=== PATIENT | male | born 1975 | race Caucasian/White ===

== ENCOUNTER → 2017-05-26 | Outpatient (REF) ==
[~2017-05-26] MED LIST: ACE500 PO; AMLO-476 PO; IBU800 PO
== END ==
LOC: AUD 10:25
PROVIDERS: ATTEND Nurse Practitioner Family
DX: Z01.10 Encounter for examination of ears and hearing without abnormal findings (principal)
CPT/HCPCS: 92552

== ENCOUNTER 2017-10-26 12:27 | Inpatient (IN) | payer BC ==
[~2017-10-26] VITALS: Ht 177.8 cm; Wt 110.7 kg
[~2017-10-26 12:27] MED LIST changes: -DEXAMETHASONE SOD PHOS 10MG/ML ONE; -HYDROmorphone HCL 2 MG/ML SDV ONE; -IOPAMIDOL 76% 75 ML INFUS BTL 75 ML ONE; -LIDOCAINE MPF 1% 5 ML VIAL ONE; -LIDOCAINE/SOD BICARB 8.4% SYR ONE; -METO50TA19 PO; -MIDAZOLAM 2 MG/2 ML VIAL ONE; -ONDANSETRON 4 MG/2 ML VIAL ONE; -PIOG45TA65 PO; -PROPOFOL EMUL(*) 10MG/ML 20 ML 20 ML ONE; -ROCURONIUM BROM 10 MG/ML 10 ML ONE; -fentaNYL CITR 100 MCG/2 ML AMP ONE
--- NOTE | 2017-10-26 12:37 | ER Report ---
History and Physical Time Seen By MD: 12:36 HPI/ROS This is a 41-year-old male who was sent to the emergency department by the providers at the urgent care for abnormal CT scan results. The patient states that he has had worsening left lower quadrant abdominal pain and fullness for the past 2 months. His , who is at the bedside, states that for 2 months every 5 days he has multiple episodes of vomiting and diarrhea. The episode spontaneously resolve, and then the same episodes return 5 days later. The patient went to the urgent care today because his pain is worsening and he has not had a bowel movement in 5 days. He is also complaining of nausea and vomiting and abdominal fullness and distention. He does not have a family history of colon cancer, does not smoke cigarettes, and states he has never had blood in his stool. He denies weight loss. Remainder of the 14 system rev: Yes Allergies: Coded Allergies: No Known Allergies (Verified Allergy, Mild, 10/15/07) Home Meds Reported Medications Metoprolol Succinate (METOPROLOL SUCCINATE) 50 Mg Tab.er.24h, 2 TAB PO QDAY, TAB 10/26/17 Pioglitazone Hcl (PIOGLITAZONE HCL) 45 Mg Tablet, 45 MG PO QDAY 10/26/17 Amlodipine Besylate/Benazepril (Lotrel 10/20 Capsule) 1 Cap Capsule, 1 CAP PO QDAY 10/15/07 Discontinued Reported Medications Acetaminophen (Tylenol) 500 Mg Tab, 500 MG PO Q4-6H 1 GRAM DIRECTED, NO MORE THAN 4 GRAMS IN 24 HOURS 10/15/07 Ibuprofen (Motrin) 800 Mg Tab, 800 MG PO Q8H, 0 Refills 10/15/07 Reviewed Nurses Notes: Yes Old Medical Records Reviewed: Yes Hx Smoking: No Smoking Status: Never Smoker Exposure to Second Hand Smoke?: No Hx Substance Use Disorder: No Hx Alcohol Use: No Constitutional Vital Sign - Last 24 Hours 10/26/17 10/26/17 10/26/17 10/26/17 12:34 12:34 12:42 12:57 Temp 98.0 Pulse 90 85 82 Resp 16 B/P (MAP) 123/97 123/97 (106) Pulse Ox 93 91 92 O2 Delivery Room Air 10/26/17 10/26/17 10/26/17 10/26/17 13:00 13:12 13:27 13:30 Pulse 83 74 B/P (MAP) 122/83 (96) 115/78 (90) Pulse Ox 92 92 10/26/17 10/26/17 10/26/17 10/26/17 13:42 13:57 14:00 14:12 Pulse 82 85 85 B/P (MAP) 119/82 (94) Pulse Ox 90 88 95 Physical Exam General Appearance: The patient is alert, has no immediate need for airway protection and no current signs of toxicity. Eyes: Pupils equal and round no injection. Respiratory: Chest is non tender, lungs are clear to auscultation. Cardiac: regular rate and rhythm Gastrointestinal: Abdomen is distended. He is diffuse tenderness to palpation but mostly in the left lower quadrant. Skin: No rashes or lesions. DIFFERENTIAL DIAGNOSIS: After history and physical exam differential diagnosis was considered for abdominal pain including but not limited to cholecystitis, gastritis, small bowel obstruction, large bowel obstruction, and urinary tract infection. Medical Decision Making Data Points Result Diagram: 10/26/17 1440 10/26/17 1440 Laboratory Hematology Test 10/26/17 14:40 Red Blood Count 6.19 M/uL (4.00-5.60) Mean Corpuscular Volume 80.7 fL (80.0-96.0) Mean Corpuscular Hemoglobin 27.3 pg (26.0-33.0) Mean Corpuscular Hemoglobin Concent 33.8 g/dL (32.0-36.0) Red Cell Distribution Width 15.9 % (11.5-14.5) Mean Platelet Volume 8.3 fL (7.2-11.1) Neutrophils (%) (Auto) 82.0 % (39.4-72.5) Lymphocytes (%) (Auto) 10.0 % (17.6-49.6) Monocytes (%) (Auto) 6.5 % (4.1-12.4) Eosinophils (%) (Auto) 0.7 % (0.4-6.7) Basophils (%) (Auto) 0.8 % (0.3-1.4) Nucleated RBC Relative Count (auto) 0.1 /100WBC Neutrophils # (Auto) 10.4 K/uL (2.0-7.4) Lymphocytes # (Auto) 1.3 K/uL (1.3-3.6) Monocytes # (Auto) 0.8 K/uL (0.3-1.0) Eosinophils # (Auto) 0.1 K/uL (0.0-0.5) Basophils # (Auto) 0.1 K/uL (0.0-0.1) Nucleated RBC Absolute Count (auto) 0.01 K/uL Prothrombin Time 14.0 seconds (12.0-14.4) Prothromb Time International Ratio 1.08 Activated Partial Thromboplast Time 29 seconds (23-35) Sodium Level 132 mmol/L (137-145) Potassium Level 4.8 mmol/L (3.5-5.0) Chloride Level 97 mmol/L (98-107) Carbon Dioxide Level 25 mmol/L (22-30) Blood Urea Nitrogen 34 mg/dl (9-21) Creatinine 1.00 mg/dl (0.66-1.25) Glomerular Filtration Rate Calc > 60.0 Random Glucose 257 mg/dl (75-110) Lactate 1.5 mmol/L (0.7-2.1) Calcium Level 8.5 mg/dl (8.4-10.2) Total Bilirubin 0.6 mg/dl (0.2-1.3) Aspartate Amino Transf (AST/SGOT) 20 U/L (0-35) Alanine Aminotransferase (ALT/SGPT) 23 U/L (0-56) Alkaline Phosphatase 77 U/L (0-126) Total Protein 7.6 g/dl (6.3-8.2) Albumin 4.2 g/dl (3.5-5.0) Chemistry Test 10/26/17 14:40 White Blood Count 12.7 k/uL (4.5-11.0) Red Blood Count 6.19 M/uL (4.00-5.60) Hemoglobin 16.9 g/dL (14.0-18.0) Hematocrit 50.0 % (42.0-52.0) Mean Corpuscular Volume 80.7 fL (80.0-96.0) Mean Corpuscular Hemoglobin 27.3 pg (26.0-33.0) Mean Corpuscular Hemoglobin Concent 33.8 g/dL (32.0-36.0) Red Cell Distribution Width 15.9 % (11.5-14.5) Platelet Count 322 K/uL (150-450) Mean Platelet Volume 8.3 fL (7.2-11.1) Neutrophils (%) (Auto) 82.0 % (39.4-72.5) Lymphocytes (%) (Auto) 10.0 % (17.6-49.6) Monocytes (%) (Auto) 6.5 % (4.1-12.4) Eosinophils (%) (Auto) 0.7 % (0.4-6.7) Basophils (%) (Auto) 0.8 % (0.3-1.4) Nucleated RBC Relative Count (auto) 0.1 /100WBC Neutrophils # (Auto) 10.4 K/uL (2.0-7.4) Lymphocytes # (Auto) 1.3 K/uL (1.3-3.6) Monocytes # (Auto) 0.8 K/uL (0.3-1.0) Eosinophils # (Auto) 0.1 K/uL (0.0-0.5) Basophils # (Auto) 0.1 K/uL (0.0-0.1) Nucleated RBC Absolute Count (auto) 0.01 K/uL Prothrombin Time 14.0 seconds (12.0-14.4) Prothromb Time International Ratio 1.08 Activated Partial Thromboplast Time 29 seconds (23-35) Glomerular Filtration Rate Calc > 60.0 Lactate 1.5 mmol/L (0.7-2.1) Calcium Level 8.5 mg/dl (8.4-10.2) Total Bilirubin 0.6 mg/dl (0.2-1.3) Aspartate Amino Transf (AST/SGOT) 20 U/L (0-35) Alanine Aminotransferase (ALT/SGPT) 23 U/L (0-56) Alkaline Phosphatase 77 U/L (0-126) Total Protein 7.6 g/dl (6.3-8.2) Albumin 4.2 g/dl (3.5-5.0) Coagulation Test 10/26/17 14:40 Prothrombin Time 14.0 seconds Prothromb Time International Ratio 1.08 Activated Partial Thromboplast Time 29 seconds EKG/Imaging Imaging Results: CT scan of the abdomen and pelvis was obtained. The results of the study are large bowel obstruction likely from a mass. The study was read by the radiologist. I viewed the images myself on the PACS system. X-ray: Abdomen was obtained. I viewed the images myself on the PACS system. My interpretation of the images is: Adequate NG tube placement. The radiologist interpretation had no clinically significant variation from this interpretation. ED Course/Re-evaluation ED Course 41-year-old male with 2 months of worsening abdominal pain and distention and presents today with no bowel movement for the past 5 days. Also with nausea and vomiting. CT scan shows a large bowel obstruction likely from a mass that is located at the area of the descending and sigmoid colon. An NG tube was placed, and the patient has some relief of his abdominal pain. He and his have taken the news well. I spoke with Dr. Jones who was in the emergency department, and will discuss definitive management with the patient. The patient is otherwise stable. He will be admitted to the hospital for further care. Decision to Disposition Date: Oct 26, 2017 Decision to Disposition Time: 14:23 Depart Departure Latest Vital Signs Vital Signs Date Time Temp Pulse Resp B/P (MAP) Pulse Ox O2 Delivery O2 Flow Rate FiO2 10/26/17 14:12 85 95 10/26/17 14:00 119/82 (94) 10/26/17 12:34 98.0 16 Room Air Impression: Primary Impression: Large bowel obstruction Condition: Improved Disposition: Admitted from ER Referrals: JUHI LUCAS (PCP) RAJINDER PAT MD Oct 26, 2017 12:37
[2017-10-26] MEDS ORDERED: PIOG45TA65 PO (12:43)
[2017-10-26] MEDS ORDERED: METO50TA19 PO (12:43)
[2017-10-26] MEDS ORDERED: MORPHINE 4 MG/ML SDV IVP ONE (13:20)
[2017-10-26] MEDS ORDERED: NS(*) 0.9% 1000 ML BAG 1,000 ML IV ONE (13:20)
[2017-10-26] MEDS ORDERED: ONDANSETRON 4 MG/2 ML VIAL IVP ONE (13:20)
[2017-10-26] MEDS ORDERED: LIDOCAINE 2% JELLY 5 ML TUBE ONE (13:40)
--- NOTE | 2017-10-26 14:25 | RADIOLOGY IMAGING REPORT ---
FAC[facility] PATIENT NAME: Boris Salazar : 1975 MR: [id number] V: [id number] EXAM DATE: ORDERING PHYSICIAN: RAJINDER PAT TECHNOLOGIST: Location: [facility] Patient: Boris Salazar : 1975 Visit/Account:[id number] Date of Sevice: 10/26/2017 CHEST SINGLE AP INDICATION: place NG tube, not feeding tube COMPARISON: None available FINDINGS: Heart size within normal limits. There is left lower lobe atelectasis versus infiltrate. There is no pneumothorax or pleural effusion. Nasogastric tube terminates within the stomach. IMPRESSION: 1. Left lower lobe atelectasis versus infiltrate 2. Nasogastric tube placement within the stomach Report Dictated By: Hawk Kyle at 10/26/2017 2:20 PM Report E-Signed By: Hawk Kyle at 10/26/2017 2:20 PM WSN:[email or web address]
[2017-10-26 14:51] LABS: PLATELET COUNT, AUTOMATED 322 K/uL (150-450)
[2017-10-26 14:56] LABS: INR 1.08
--- NOTE | 2017-10-26 15:51 | Gen Surgery History & Physical ---
History of Present Illness Chief Complaint crampy abdominal pain and obstipation History of Present Illness This 41 year old male with hx of type 2 DM and HTN presents with history of intermittent crampy abdominal pain and constipation for the past two months. He denies weight loss, hematochezia or melena. He describes cycles of constipation, bloating and abdominal distension, crampy pain and nausea and occasional vomiting, followed by diarrhea and relief. He had a CT scan done that shows an obstructing lesion in the proximal sigmoid colon. No obvious liver mets or metastatic disease. NO family hx of colon cancer, though mother did have breast cancer. History Home Meds Reported Medications Metoprolol Succinate (METOPROLOL SUCCINATE) 50 Mg Tab.er.24h, 2 TAB PO QDAY, TAB 10/26/17 Pioglitazone Hcl (PIOGLITAZONE HCL) 45 Mg Tablet, 45 MG PO QDAY 10/26/17 Amlodipine Besylate/Benazepril (Lotrel 10/20 Capsule) 1 Cap Capsule, 1 CAP PO QDAY 10/15/07 Discontinued Reported Medications Acetaminophen (Tylenol) 500 Mg Tab, 500 MG PO Q4-6H 1 GRAM DIRECTED, NO MORE THAN 4 GRAMS IN 24 HOURS 10/15/07 Ibuprofen (Motrin) 800 Mg Tab, 800 MG PO Q8H, 0 Refills 10/15/07 Allergies: Coded Allergies: No Known Allergies (Verified Allergy, Mild, 10/15/07) Review of Systems All Systems Reviewed/Normal: Yes, Except as Noted Gastrointestinal: Nausea, Vomiting, Constipation Exam General Appearance: Alert, Awake, No Acute Distress, Afebrile Neuro: No Gross deficits Eyes: PERRLA ENT: Moist Mucous Membranes Neck: No Masses (no adenopathy) Cardiovascular: Normal Rhythm & Peripheral Pulses, No Edema, No JVD Respiratory: No Respiratory Distress, Clear to Auscultation GI: Abd Soft and Non-Tender Lymph: No Adenopathy Extremities: Soft and Non Tender Integumentary: Skin Intact without Lesion / Mass Psych: Alert & Oriented X3, Appropriate Mood & Affect Medical Decision Making Data Points Result Diagram: 10/26/17 1440 10/26/17 1440 Assessment and Plan Problems: (1) Large bowel obstruction Status: Acute Assessment & Plan: I have discussed in detail with the patient and his the findings of an obstructing colon mass which most likely represents a colon ca ncer. I reviewed the possible treatment options and outlined our recommended treatment plan to include NG decompression, IV hydration, colonoscopy tomorrow with a fleets enema prep, check CEA, and tehn exploratory laparotomy and colon resection and end colostomy. He understands that the colostomy will likely be able to be closed at 8-12 weeks. I explained that Dr. Wharton will be performing the colonoscopy and that Dr. Mary Ann Morataya (our surgical oncologist) will be performing the colon resection on Thursday. Boris and his have had all their questions answered and wish to proceed with the current treatment plan. Time Spent: > 30 min Venous Thromboembolism VTE Risk Physician Assess for VTE Risk: Yes Patient's VTE Risk: High VTE Diagnostic Test 2 Days Prior to Admit: No Antithrombotics Is Pt On Any Antithrombotics?: No VIVIEN SANCHEZ MD Oct 26, 2017 15:51
[2017-10-26] MEDS ORDERED: MORPHINE 2 MG/ML SYR IVP PRN (15:55)
[2017-10-26] MEDS ORDERED: ONDANSETRON 4 MG/2 ML VIAL IVP PRN (15:55)
[2017-10-26 16:31] VITALS: BP 114/77
[2017-10-26] MEDS ORDERED: MORPHINE 1 MG/ML 30 ML PCA IV PRN (17:30)
[2017-10-26] MEDS: KCL/DNS 20 MEQ/1000 ML PREMIX 1,000 ML IV PRN (18:11)
--- NOTE | 2017-10-26 18:39 | RADIOLOGY IMAGING REPORT ---
FACILITY: [facility] [place] PATIENT NAME: Boris Salazar : 1975 MR: [id number] V: [id number] EXAM DATE: ORDERING PHYSICIAN: VIVIEN SANCHEZ TECHNOLOGIST: Location: [facility] - [place] Patient: Boris Salazar : 1975 Visit/Account:[id number] Date of Sevice: 10/26/2017 CHEST W/O CONTRAST Provided history: COLON CX, LUNG NODULES Additional pertinent history: none TECHNIQUE: Spiral scan was obtained from the lower neck through the lung bases without intravenous co ntrast. Source images were reformatted in the coronal and sagittal planes. Additional series performed today: none One of the following dose optimization techniques was utilized in the performance of this exam: Autom ated exposure control; adjustment of the mA and/or kV according to the patient's size; or use of an i terative reconstruction technique. Specific details can be referenced in the facility's radiology CT exam operational policy. COMPARISON STUDIES: No relevant priors FINDINGS: Lungs / pleura / marilin: A 3 x 3 mm circumscribed dense nodule right middle lobe image 4/178 correlat es with that identified on CT abdomen earlier today. A slightly smaller micronodule right lower lobe image 140. Another dense tiny micronodule right upper lobe image 63. A potential nodular infiltrate in the medial left lung base is new from prior and I think is due to m inimal Bochdalek hernia and adjacent atelectasis of lung. This is not significant. Otherwise, left sandra ng reveals no nodules. Lower neck: negative Mediastinum: Multiple scattered small circumscribed lymph nodes are very likely benign and reactive in origin. Small benign-appearing right cardiophrenic cyst measures 2.5 x 3.7 cm. Heart / pericardium: negative Vessels: Mild coronary artery calcification. Borderline prominence main pulmonary artery. Normal thor acic aorta. Lymph nodes: negative Body wall: negative Upper abdomen: Dilated both large and small bowel from obstructing tumor fully defined on the CT abd omen today. NG tube in place with tip in the stomach. Bones: negative IMPRESSION: 1. Micronodules are defined above in the right lung that are very likely benign. Given the history of colon cancer, suggest follow-up low-dose CT chest in 6 months. 2. Potential nodular infiltrate in the medial right lung base is due to a small localized hernia of f at with overlying atelectasis. 3. NG tube tip is in the stomach. Report Dictated By: Roque Hernandez MD at 10/26/2017 6:28 PM Report E-Signed By: Roque Hernandez MD at 10/26/2017 6:35 PM WSN:[email or web address]
--- NOTE | 2017-10-26 18:42 | General Surgery Consultation ---
History of Present Illness Requesting Physician Dr. Jones Reason for Consult Obstructing sigmoid lesion Chief Complaint Abdominal pain and constipation History of Present Illness 41-year-old gentleman presents with a two-month history of intermittent abdominal pain with associated constipation. He will become constipated and then become bloated with increased distention and increased crampy abdominal pain with nausea and vomiting and then he seems to purge with diarrhea and then feels better. He came into the urgent care center where a CT scan of his abdomen is suspicious for an obstructing colon cancer in his sigmoid colon just distal to the descending colon/sigmoid colon junction. He was sent to our emergency room where Dr. Jones saw him and admitted him. Dr. Jones has asked for a colonoscopy to confirm the suspicion of a neoplasm. He has been admitted and placed on NG tube GI decompression with bowel rest and IV fluids with pain control and nausea control. The patient denies any family history of colon or rectal cancer and the patient has never before had a colonoscopy. History Problems: (1) Diabetes Status: Chronic (2) Hypertension Status: Chronic (3) Obesity Status: Chronic Home Meds Reported Medications Metoprolol Succinate (METOPROLOL SUCCINATE) 50 Mg Tab.er.24h, 2 TAB PO QDAY, TAB 10/26/17 Pioglitazone Hcl (PIOGLITAZONE HCL) 45 Mg Tablet, 45 MG PO QDAY 10/26/17 Amlodipine Besylate/Benazepril (Lotrel 10/20 Capsule) 1 Cap Capsule, 1 CAP PO QDAY 10/15/07 Discontinued Reported Medications Acetaminophen (Tylenol) 500 Mg Tab, 500 MG PO Q4-6H 1 GRAM DIRECTED, NO MORE THAN 4 GRAMS IN 24 HOURS 10/15/07 Ibuprofen (Motrin) 800 Mg Tab, 800 MG PO Q8H, 0 Refills 10/15/07 Allergies: Coded Allergies: No Known Allergies (Verified Allergy, Mild, 10/15/07) Review of Systems All Systems Reviewed/Normal: Yes, Except as Noted Gastrointestinal: Nausea, Vomiting, Constipation, Abdominal Pain Exam Vital Signs Vital Signs Date Time Temp Pulse Resp B/P (MAP) Pulse Ox O2 Delivery O2 Flow Rate FiO2 10/26/17 18:12 16 93 10/26/17 16:31 98.4 114/77 (89) Nasal Cannula 1.0 10/26/17 16:02 84 General Appearance: Alert, Awake, No Acute Distress, Afebrile Neuro: No Gross deficits Eyes: PERRLA Cardiovascular: Regular Rate and Rhythm Respiratory: Clear to Auscultation GI: Abd Soft and Non-Tender Extremities: Warm, Perfused Psych: Alert & Oriented X3, Appropriate Mood & Affect Medical Decision Making Data Points Result Diagram: 10/26/17 1440 10/26/17 1440 Assessment and Plan Problems: (1) Large bowel obstruction Status: Acute Assessment & Plan: 10/26/17: This obstruction appears to be due to a neoplasm in his proximal sigmoid colon. He is being appropriately decompressed with NG tube to wall suction and bowel rest with IV fluids and symptomatic relief for pain and nausea. I will plan on a flexible sigmoidoscopy tomorrow morning to visually inspect the obstructing lesion. We will give him a fleets enema in the morning which is all the prep he will really need for this. I have explained this plan to the patient in detail as well as the alternatives, risks, and expected recovery. He indicates his understanding of this discussion and his questions have been answered. He would like to proceed with flexible sigmoidoscopy tomorrow morning. Condition Stable Time Spent: < 30 min Venous Thromboembolism Antithrombotics Is Pt On Any Antithrombotics?: No AUDIE MONAE MD Oct 26, 2017 18:42
[2017-10-26 19:45] VITALS: BP 122/80
[2017-10-26 23:17] VITALS: BP 131/85
[2017-10-27 04:51] VITALS: BP 142/91
[2017-10-27 05:51] LABS: PLATELET COUNT, AUTOMATED 269 K/uL (150-450)
[2017-10-27] MEDS: KCL/DNS 20 MEQ/1000 ML PREMIX 1,000 ML IV PRN ×2 (06:00→18:23)
[2017-10-27] MEDS ORDERED: PROPOFOL EMUL(*) 10MG/ML 20 ML 20 ML ONE (07:07)
[2017-10-27 08:19] VITALS: BP 136/95
[2017-10-27] MEDS ORDERED: NORMOSOL R SOLN(*) 1000 ML BAG 1,000 ML IV ONE (08:34)
[2017-10-27] MEDS: PANTOPRAZOLE SOD 40 MG IV VIAL IVP SCH (08:52)
[2017-10-27] MEDS: ENOXAPARIN 40 MG/0.4ML SYR SC SCH (09:00)
--- NOTE | 2017-10-27 09:53 | General Surgery Progress Note ---
Subjective Progress Notes Subjective Feeling better, less distended Physical Exam Vital Signs Date Time Temp Pulse Resp B/P (MAP) Pulse Ox O2 Delivery O2 Flow Rate FiO2 10/27/17 08:19 97.7 93 16 136/95 (109) 93 Nasal Cannula 2.0 Intake and Output 10/27/17 06:59 Intake Total 1950 ml Output Total 1050 ml Balance 900 ml Intake IV Total 1950 ml Output Gastric Drainage Total 1050 ml # Bowel Movements 3 General Appearance: Alert, Awake, No Acute Distress, Afebrile Neuro: No Gross deficits ENT: Moist Mucous Membranes Cardiovascular: Normal Rhythm & Peripheral Pulses Respiratory: No Respiratory Distress GI: Soft and Non-Tender (less edistended) Extremities: Soft and Non Tender Psych: Alert & Oriented X3, Appropriate Mood & Affect Result Diagram: 10/27/1752110/27/17521 Assessment and Plan Problems: (1) Large bowel obstruction Status: Acute Assessment & Plan: 10/26/17: This obstruction appears to be due to a neoplasm in his proximal sigmoid colon. He is being appropriately decompressed with NG tube to wall suction and bowel rest with IV fluids and symptomatic relief for pain and nausea. I will plan on a flexible sigmoidoscopy tomorrow morning to visually inspect the obstructing lesion. We will give him a fleets enema in the morning which is all the prep he will really need for this. I have explained this plan to the patient in detail as well as the alternatives, risks, and ex pected recovery. He indicates his understanding of this discussion and his questions have been answered. He would like to proceed with flexible sigmoidoscopy tomorrow morning. 10/27/2017: Flex sig,/colonscopy today, continue IV hydration, Chest CT results noted, CEA pending, will ana optimal stoma site later today. To OR tomorrow for colectomy by Dr. Morataya. Time Spent: < 30 min Exam Sepsis Risk: No Definite Risk VIVIEN SANCHEZ MD Oct 27, 2017 09:53
--- NOTE | 2017-10-27 10:41 | Miscellaneous Provider Note ---
Miscellaneous Provider Note Note Sigmoidoscopy completed without problems. Able to advance colonoscope to proximal sigmoid colon and the narrowing was seen and appears neoplastic, very friable and tight. I was unable to advance the scope beyond the narrowing. No other lesions seen in sigmoid colon or rectum but prep not adequate to clearly see all mucosal surfaces. Full endoscopy report in chart with pictures. Boris will need a full colonoscopy in the next 6 months after he's healed from surgery. AUDIE MONAE MD Oct 27, 2017 10:41
[2017-10-27 10:43] VITALS: Ht 177.8 cm; Wt 110.7 kg
[2017-10-27 11:00] VITALS: BP 126/83
[2017-10-27] MEDS ORDERED: PEG (High)/E-LYTE SOLN 4000 ML PO ONE (12:00)
[2017-10-27 13:56] VITALS: BP 154/96
[2017-10-27] MEDS: NEOMYCIN SULFATE 500 MG TAB FT SCH ×3 (14:11→22:50)
[2017-10-27] MEDS: METRONIDAZOLE 500 MG TABLET FT SCH ×2 (15:05→17:33)
[2017-10-27] MEDS: INSULIN HUM LISPRO 100 UN/ML 3 ML VIAL SUBQ PRN ×2 (16:33→20:22)
[2017-10-27 20:08] VITALS: BP 135/81
[2017-10-27 23:28] VITALS: BP 152/92
[2017-10-28] VITALS (19 sets, daily range): BP systolic 136–162; BP diastolic 92–108
[2017-10-28] MEDS: METRONIDAZOLE 500 MG TABLET FT SCH (00:08)
[2017-10-28] MEDS: KCL/DNS 20 MEQ/1000 ML PREMIX 1,000 ML IV PRN ×2 (02:44→21:22)
[2017-10-28] MEDS ORDERED: NORMOSOL R SOLN(*) 1000 ML BAG 1,000 ML IV ONE ×2 (07:35→08:00)
[2017-10-28] MEDS: ENOXAPARIN 40 MG/0.4ML SYR SC SCH (09:21)
[2017-10-28] MEDS: PANTOPRAZOLE SOD 40 MG IV VIAL IVP SCH (09:22)
[2017-10-28] MEDS: INSULIN HUM LISPRO 100 UN/ML 3 ML VIAL SUBQ PRN ×2 (09:25→20:16)
[2017-10-28] MEDS ORDERED: PIPERACILLIN/TAZO* 4.5 GM VIAL 4.5 GM in NS(*) 0.9% 100 ML ADDVANT BAG 100 ML IVPB ONE (09:30)
--- NOTE | 2017-10-28 09:47 | EKG ---
FACILITY: [facility] PATIENT NAME: JANY JAQUEZ : [id number] MR: [id number] V: [id number] EXAM DATE: ORDERING PHYSICIAN: VIVIEN SANCHEZ TECHNOLOGIST: Test Reason : PRE-OP Blood Pressure : / mmHG Vent. Rate : 083 BPM Atrial Rate : 083 BPM P-R Int : 128 ms QRS Dur : 092 ms QT Int : 380 ms P-R-T Axes : 066 079 045 degrees QTc Int : 446 ms Sinus rhythm Nonspecific interventricular conduction delay Nonspecific T wave flattening III, AVF Artifact in anterior leads No previous ECGs available Confirmed by GABE MCKEON ([id number]) on 10/28/2017 2:50:13 PM Referred By: Confirmed By:GABE MCKEON
--- NOTE | 2017-10-28 11:42 | General Surgery Progress Note ---
Subjective Progress Notes Subjective Patient underwent colonoscopy yesterday which he tolerated well, confirmed mass with appearance consistent with malignancy at 30cm. He was able to have some BM after Fleet's enemas for colonoscopy so GoLytely prep was given overnight, and patient tolerated well, reports clear output this AM. Denies any abdominal pain. Has significant irritation from the NGT. Patient Complains of: Gastrointestinal: Flatus, Bowel Movement; No Nausea, No Vomiting Physical Exam Vital Signs Date Time Temp Pulse Resp B/P (MAP) Pulse Ox O2 Delivery O2 Flow Rate FiO2 10/28/17 10:17 156/98 (117) 10/28/17 10:09 98.2 86 16 92 Room Air 10/28/17 02:45 3.0 Intake and Output 10/28/17 06:59 Intake Total 1457 ml Balance 1457 ml IV Total 1457 ml # Voids 5 # Bowel Movements 10 General Appearance: Alert, Awake, No Acute Distress Neuro: No Gross deficits ENT: Moist Mucous Membranes, Other (NGT in place to R nare) Cardiovascular: Regular Rate and Rhythm Respiratory: No Respiratory Distress GI: Other (soft, obese, somewhat distended, nontender) Extremities: Warm, Perfused Integumentary: Skin Intact without Lesion / Mass Psych: Alert & Oriented X3, Appropriate Mood & Affect Result Diagram: 10/27/1752110/27/17521 Monitor Interpretation: Normal Sinus Rhythm Assessment and Plan Problems: (1) Large bowel obstruction Status: Acute Assessment & Plan: 41yo male with obstructing mass in sigmoid colon, most consistent with colon cancer. 1) Large bowel obstruction: the patient has undergone staging work up with CT Abd/Pelvis and CT Chest. There is no evidence of metastatic disease. CEA is pending. He was able to tolerate a GoLytely prep. I have reviewed his imaging findings with him, and discussed with the patient and his family that these findings are all most consistent with a colon cancer, although final confirmation will be based off of pathology. I have discussed what is involved with the staging of cancer, and that staging is how decisions are made regarding the need for adjuvant therapy. His history of acute obstruction leading up to surgery is an additional risk factor that would warrant consideration of adjuvant therapy. He does have a family history (maternal) of breast (mother), uterine (maternal aunt), and ovarian (maternal aunt) cancer. Will await JACQUELINE testing from pathology, but given his young age, would advise for genetic counseling. We discussed what is involved in surgical resection. I have recommended an open approach due to his acute obstructing presentation. The risks, benefits, and alternatives of surgical intervention, including, but not limited to, bleeding, infection, nerve injury, blood clots, heart attacks, allergic reactions, pnuemonia, anastomotic leak, ureteral injury, and injury to surrounding structures has been explained to the patient and informed consent has been obtained. Will plan for exploratory laparotomy, partial colectomy, possible colostomy. I have discussed with the patient that colostomy is likely. The patient, his , his mother, and his daughter have been provided the opportunity to ask questions, and I have addressed this to the best of my ability. Neomycin/Flagyl given, [employer] financial services professional to OR. Time Spent: > 30 min Exam Sepsis Risk: No Definite Risk JOAN KENNY MD Oct 28, 2017 11:42
[2017-10-28] MEDS ORDERED: BUPIV/EPI 0.25% 1:200,000 50ML INFIL ONE (14:36)
[2017-10-28] MEDS ORDERED: fentaNYL CITR 100 MCG/2 ML AMP ONE (16:35)
--- NOTE | 2017-10-28 16:52 | Medical Nutrition Therapy ---
Nutrition Anthropometrics Height (Inches): 70.00 Height (Calculated Centimeters: 177.020672 Weight (Pounds): 244 Weight (Calculated Kilograms): 110.677 BMI: 35 Douglas Nutrition Score: Adequate Douglas Nutrition Risk Score: 18 Dietary Referral Nutrition Risk Factors: Nutrition Risk Comment: Physical Findings Physical Appearance: Obese BMI 30-39 Skin Appearance Skin Appearance: Edema Edema Location Modifier: Edema Location: Type of Edema: Degree of Edema: Gastrointestinal Symptoms GI Symtoms: Change in Bowel Pattern Tube Present: NG Bowel Sounds: Recent Bowel Pattern: Constipated Stool Characteristics: Nutritional Diagnosis Nutritional Risk Acuity 1: GI Obstruction Nutritional Risk Acuity 2: V/D > 3 Days, Head/Neck/GI Cancer Nutritional Risk Acuity 3: Nausea Past Medical History: Hx of T2DM, HTN, and Obesity. Nutritional Acuity: 1-High Nutrition Diagnosis: Altered GI Function Nutrition Etiology: Physiological Causes Nutrition Problem/Etiology/Sym: AEB dx LBO with colon Ca Adjusted Energy Requirement Re: 2800 ([place]- Souza adj for obesity X 1.2 SF) Protein Requirement: 115 (1.5 gm/kg IBWR) Fluid Requirement: 2800 (1ml/kcal) Diet Type: NPO (Nothing by Mouth) Nutrition Intervention: Incr diet as tolerated Nutrition Monitoring & Eval RD Patient Assessment Time: [address] Assessment Type: RD Assessment Patient Nutrition Acuity: 1-High Follow Up Date: Oct 30, 2017 Nutritional Comment: 10/27. Admitted for worsening ab pain and constipation. Pt is being treated for a large bowel obstruction. Pt has 2 month history of N/V, diarrhea and constipation. Pt is currently NPO, NG tube GI decompression was palced for bowel rest. Pt did undergo a sigmoidoscopy. Noteable labs include: low sodium 134, calcium 8.1, total protein 6.2, and elevated BUN 32 and random BG of 245. Pt is on Lispro SS2-10 units SUBQ. Pt is 70in, 244lbs, and has a obese class 2 BMI of 35.1. Will monitor pt diet and labs. MR 10/28 Day 2 NPO post surgery for colon CA with LBO. Faint bowel sounds noted. Pt has elevated BG up to 220. Pt has hx of T2DM. Recomend advance to ADA diet when appropriate to advance diet. Alb 3.5, A1C 9.7. Will cont to monitor. JAYY ARRIETA Oct 28, 2017 16:52
[2017-10-28] MEDS ORDERED: HYDROmorphone HCL 2 MG/ML SDV ONE (17:00)
[2017-10-28] MEDS ORDERED: NALOXONE HCL 0.4 MG/ML VIAL IVP PRN (17:00)
[2017-10-28] MEDS ORDERED: LABETALOL HCL 100 MG/20ML VIAL ONE ×2 (17:10→17:23)
[2017-10-28] MEDS ORDERED: PROMETHAZINE 25 MG/ML 1 ML AMP ONE (17:29)
--- NOTE | 2017-10-28 17:53 | OPERATIVE REPORT 1 ---
EVENT DATE: October 28, 2017 SURGEON: Mary Ann Morataya MD ANESTHESIOLOGIST: Nicolas Farris MD ANESTHESIA: General endotracheal tube. BUSINESS TRANSFORMATION MANAGER: None. PREOPERATIVE DIAGNOSIS Large bowel mass. POSTOPERATIVE DIAGNOSIS Large bowel mass. PROCEDURES PERFORMED 1. Exploratory laparotomy. 2. Partial colectomy and end colostomy. 3. Mobilization of splenic flexure ESTIMATED BLOOD LOSS 150 mL SPECIMENS Partial colectomy. DRAINS None. COMPLICATIONS None apparent. INDICATION FOR PROCEDURE The patient is a 41-year-old male who presents with a two-month history of intermittent abdominal pain, nausea, and vomiting, as well as constipation. He ultimately presented to the Emergency Department after a visit to Urgent Care where he had CT imaging done that demonstrated findings concerning for a large bowel obstruction related to a mass in his descending colon. The patient underwent NG decompression and was admitted to the surgical service. He had a colonoscopy the following day which demonstrated the mass, which was consistent with a cancer in the descending colon. He had a staging workup with CT of the abdomen and pelvis as well as CT of the chest that did not demonstrate any evidence of metastatic disease. Based on his acute obstruction, the decision and recommendation was made to proceed with exploratory laparotomy, partial colectomy, and end colostomy. The risks, benefits, and alternatives of surgical intervention were explained to the patient, and informed consent was obtained. DETAILS OF THE PROCEDURE The patient was brought to the operating room where he was laid in the supine position. Bilateral sequential compression devices were placed on his lower extremities, and general endotracheal tube anesthesia was induced without complication. The patient was then transitioned to lithotomy, and he was positioned, prepped, and draped in the usual sterile fashion. A timeout was performed confirming the patient, the procedure, and the administration of preoperative antibiotics with Zosyn IV. The operation commenced with making a midline abdominal incision. Electrocautery was used to carry out dissection down through the subcutaneous tissues and through the fascia. The abdomen was entered. We then gained additional exposure by placing our Bookwalter retractor. We were able to identify the mass in the descending colon which was densely adherent to the left pelvic sidewall. We first mobilized the colon along the white line of Toldt and did also require some of the soft tissue of the flanks to be excised along with the mass due to the dense adhesions in that region. During this dissection, very careful attention was paid to ensuring that the ureteral structures were not damaged. We identified a transection point distal and proximal once the colon had been mobilized and transected these using a single firing of the ASIM and a blue load both distal and proximal. We then used the Harmonic scalpel to take down the mesenteric attachments. A suture ligature was used for the larger vascular structures. Once the specimen was completely mobilized, and the mesenteric attachments were taken, we handed it off the field for permanent specimen. I did open up the specimen and inspected the distal and proximal margins, which were noted to be adequate and approximately 4 to 5 cm in length. At this point in time, we irrigated the abdomen with warmed normal saline and noted that we had excellent hemostasis. We mobilized the splenic flexure at this juncture in order to gain greater mobility for our descending end colostomy. The patient had been previously marked prior to surgery in his left upper quadrant in anticipation of a colostomy. We then after adequate mobilization of the colon turned our attention to creation of our abdominal wall defect for passage of the colostomy. We excised a circular ring of skin and core of fatty tissue subcutaneously until we had worked our way down to the level of the abdominal wall fascia. The fascia was then incised with electrocautery, the rectus split, and the peritoneum incised. We then used a Aysha to pull the descending colon up through the colostomy site. We inspected our colostomy end, and this was pink and well perfused and tension- free. Once we were satisfied with the positioning of the colostomy, we then inspected the abdomen and completed a sponge count, which was accurate. At this juncture, we then proceeded with closure of the abdomen. Two 0 looped PDS sutures were used to close the abdomen, one cephalad to mid abdomen and one caudad to mid abdomen to meet in the middle. These subcutaneous tissues were then copiously irrigated with warmed normal saline, and the dermis was reapproximated using interrupted 3-0 Vicryl sutures in a deep dermal fashion. A Prineo wound closure was then placed over the epidermis. We then covered this wound and turned our attention to creation of the colostomy. The staple line was excised using Bovie electrocautery. The colonic tissue was again noted to be pink and well perfused with good bleeding at the edges. We attained hemostasis with electrocautery and then matured our colostomy using interrupted 3-0 Vicryl sutures. The colostomy device was then placed, and the anesthesia team proceeded with TAP blocks. At the completion of the procedure, sponge, instrument, and needle counts were correct times two. I was present and scrubbed for the duration of the procedure and responsible for dictating all surgical decision making. TUCKER
[2017-10-28] MEDS: HYDROmorphone PCA 6 MG/30 ML IV PRN (18:26)
[2017-10-28] MEDS: hydrALAZINE HCL 20 MG/ML VIAL IVP PRN (21:25)
[2017-10-29] VITALS (8 sets, daily range): BP systolic 143–154; BP diastolic 94–109
[2017-10-29] MEDS: INSULIN HUM LISPRO 100 UN/ML 3 ML VIAL SUBQ PRN ×6 (00:22→21:41)
[2017-10-29] MEDS: KCL/DNS 20 MEQ/1000 ML PREMIX 1,000 ML IV PRN ×3 (05:26→22:32)
--- NOTE | 2017-10-29 06:29 | General Surgery Progress Note ---
Subjective Progress Notes Subjective Pain controlled with LOCKSTITCH BINDER. Able to get some sleep last night. Discussed surgery with patient. Physical Exam Vital Signs Date Time Temp Pulse Resp B/P (MAP) Pulse Ox O2 Delivery O2 Flow Rate FiO2 10/29/17 05:33 16 93 10/29/17 05:31 Nasal Cannula 2.0 10/29/17 03:52 98.2 102 150/98 (115) Intake and Output 10/29/17 06:59 Intake Total 3724 ml Balance 3724 ml Intake Oral 120 ml IV Total 3604 ml # Voids 2 # Bowel Movements 1 General Appearance: Alert, Awake, No Acute Distress Neuro: No Gross deficits ENT: Moist Mucous Membranes Cardiovascular: Regular Rate and Rhythm Respiratory: No Respiratory Distress GI: Other (soft, obese, mildly distended, incision clean/dry, no erythema, prineo intact, colostomy edematous, pink/moist, scant serosanguinous output in bag) Extremities: Warm, Perfused Integumentary: Skin Intact without Lesion / Mass Result Diagram: 10/27/1752110/27/17521 Monitor Interpretation: Normal Sinus Rhythm Assessment and Plan Problems: (1) Large bowel obstruction Status: Acute Assessment & Plan: 41yo male with obstructing mass in sigmoid colon s/p partial colectomy, end colostomy. 1) Large bowel obstruction: s/p partial colectomy and end colostomy 10/28, doing well post operatively. Pain controlled with LOCKSTITCH BINDER. Will add scheduled tylenol. Remove NG and narayan today. OOB TID. Increase SSI to high dose as patient with persistently elevated glucose. Exam Sepsis Risk: No Definite Risk JOAN KENNY MD Oct 29, 2017 06:29
[2017-10-29 07:28] LABS: PLATELET COUNT, AUTOMATED 263 K/uL (150-450)
[2017-10-29] MEDS: HYDROmorphone PCA 6 MG/30 ML IV PRN ×2 (07:35→22:01)
[2017-10-29] MEDS: hydrALAZINE HCL 20 MG/ML VIAL IVP PRN ×3 (08:02→22:08)
[2017-10-29] MEDS: PANTOPRAZOLE SOD 40 MG IV VIAL IVP SCH (09:37)
[2017-10-29] MEDS: ENOXAPARIN 40 MG/0.4ML SYR SC SCH (09:38)
[2017-10-29] MEDS: ACETAMINOPHEN 500 MG TAB PO SCH ×2 (09:38→16:59)
[2017-10-29] MEDS ORDERED: MIDAZOLAM 2 MG/2 ML VIAL IVP PRN (11:40)
[2017-10-29] MEDS ORDERED: METOPROLOL SUCC XL 50 MG TABCR 50 MG TAB.ER.24H PO ONE (16:45)
[2017-10-30 00:11] VITALS: BP 172/104
[2017-10-30] MEDS: INSULIN HUM LISPRO 100 UN/ML 3 ML VIAL SUBQ PRN ×2 (00:15→04:15)
[2017-10-30] MEDS: ACETAMINOPHEN 500 MG TAB PO SCH ×3 (00:15→17:20)
[2017-10-30] MEDS ORDERED: BENAZEPRIL HCL 20 MG TAB PO ONE (00:50)
[2017-10-30] MEDS ORDERED: amLODIPine BESYL(*) 5 MG TAB PO ONE (00:50)
[2017-10-30 04:10] VITALS: BP 152/99
[2017-10-30] MEDS: hydrALAZINE HCL 20 MG/ML VIAL IVP PRN (05:21)
[2017-10-30 06:52] VITALS: BP 125/89
[2017-10-30] MEDS: KCL/DNS 20 MEQ/1000 ML PREMIX 1,000 ML IV PRN ×2 (06:59→15:20)
[2017-10-30] MEDS ORDERED: AMLO-122 PO (07:58)
[2017-10-30] MEDS: PANTOPRAZOLE SOD 40 MG IV VIAL IVP SCH (09:46)
[2017-10-30] MEDS: ENOXAPARIN 40 MG/0.4ML SYR SC SCH (09:46)
--- NOTE | 2017-10-30 09:52 | General Surgery Progress Note ---
Subjective Patient Complains of: Gastrointestinal: Nausea, Vomiting, Flatus, Bowel Movement, Other (distension) Physical Exam Vital Signs Date Time Temp Pulse Resp B/P (MAP) Pulse Ox O2 Delivery O2 Flow Rate FiO2 10/30/17 07:39 95 10/30/17 07:39 Nasal Cannula 2.0 10/30/17 06:52 98.8 83 16 125/89 (101) Intake and Output 10/30/17 06:59 Intake Total 240 ml Output Total 1100 ml Balance -860 ml Intake Oral 240 ml Output Urine Total 950 ml Gastric Drainage Total 150 ml # Voids 3 General Appearance: Alert, Awake, No Acute Distress Neuro: No Gross deficits Cardiovascular: Regular Rate and Rhythm Respiratory: Clear to Auscultation GI: Other (distended, few rare bowel sounds, stoma pink and edematous, no significant output yet) Extremities: Warm, Perfused Result Diagram: 10/29/1771310/29/17713 Monitor Interpretation: Normal Sinus Rhythm Assessment and Plan Problems: (1) Large bowel obstruction Status: Acute Assessment & Plan: 41yo male with obstructing mass in sigmoid colon s/p partial colectomy, end colostomy. 1) Large bowel obstruction: s/p partial colectomy and end colostomy 10/28, doing well post operatively. Pain controlled with EARLY INTERVENTION SPECIALIST. Will add scheduled tylenol. Remove NG and narayan today. OOB TID. Increase SSI to high dose as patient with persistently elevated glucose. 10/30/17 0950 Patient seen and examined. He is slowly improving with increased activity and pulmonary toilet. No evidence of return of bowel function yet although he is beginning to have bowel sounds. Await return of bowel function. Sips of clear liquids only. His blood pressure has been difficult to control with prn medications but is improving slowly with resumption of his home medications. Continue to monitor. His diabetes also has been with elevated glucoses with the stress of emergency s urgery and intervenous glucose. This is improving slowly and should continue to do so once we start him on oral medications with resumption of a diet and wean his intravenous fluids. Exam Sepsis Risk: No Definite Risk ESTEFANIA BARRY MD Oct 30, 2017 09:52
[2017-10-30] MEDS ORDERED: METOPROLOL SUCC XL 50 MG TABCR 50 MG TAB.ER.24H PO ONE (10:00)
[2017-10-30 11:26] VITALS: BP 135/93
[2017-10-30] MEDS: BENAZEPRIL PO SCH (11:31)
[2017-10-30] MEDS: AMLODIPINE PO SCH (11:31)
--- NOTE | 2017-10-30 12:46 | Medical Nutrition Therapy ---
Nutrition Anthropometrics Height (Inches): 70.00 Height (Calculated Centimeters: 177.060589 Weight (Pounds): 244 Weight (Calculated Kilograms): 110.677 BMI: 35 Douglas Nutrition Score: Probably Inadequate Douglas Nutrition Risk Score: 19 Dietary Referral Nutrition Risk Factors: Nutrition Risk Comment: Physical Findings Physical Appearance: Obese BMI 30-39 Skin Appearance Skin Appearance: Edema Edema Location Modifier: Edema Location: Type of Edema: Degree of Edema: Gastrointestinal Symptoms GI Symtoms: Change in Bowel Pattern Tube Present: NG Bowel Sounds: Recent Bowel Pattern: Constipated Stool Characteristics: Nutritional Diagnosis Nutritional Risk Acuity 1: NPO/CL > 3 days, GI Obstruction Nutritional Risk Acuity 2: V/D > 3 Days, Head/Neck/GI Cancer Nutritional Risk Acuity 3: Nausea, Colostomy Past Medical History: Hx of T2DM, HTN, and Obesity. Nutritional Acuity: 1-High Nutrition Diagnosis: Altered GI Function Nutrition Etiology: Physiological Causes Nutrition Problem/Etiology/Sym: AEB dx LBO with colon Ca Adjusted Energy Requirement Re: 2800 ([place]- Souza adj for obesity X 1.2 SF) Protein Requirement: 115 (1.5 gm/kg IBWR) Fluid Requirement: 2800 (1ml/kcal) Diet Type: NPO (Nothing by Mouth) Nutrition Intervention: Incr diet as tolerated Nutritional Needs Comment: Recommend TPN. Infuse 1 L in first 24 hours, then 2.5 L in 24 hours. Nutrition Monitoring & Eval RD Patient Assessment Time: [address] Assessment Type: RD Re-Assessment Patient Nutrition Acuity: 1-High Follow Up Date: Nov 01, 2017 Nutritional Comment: 10/27. Admitted for worsening ab pain and constipation. Pt is being treated for a large bowel obstruction. Pt has 2 month history of N/V, diarrhea and constipation. Pt is currently NPO, NG tube GI decompression was palced for bowel rest. Pt did undergo a sigmoidoscopy. Notable labs include: low sodium 134, calcium 8.1, total protein 6.2, and elevated BUN 32 and random BG of 245. Pt is on Lispro SS2-10 units SUBQ. Pt is 70in, 244lbs, and has a obese class 2 BMI of 35.1. Will monitor pt diet and labs. MR 10/28 Day 2 NPO post surgery for colon CA with LBO. Faint bowel sounds noted. Pt has elevated BG up to 220. Pt has hx of T2DM. Recommend advance to ADA diet when appropriate to advance diet. Alb 3.5, A1C 9.7. Will cont to monitor. BK 10/30. Pt NPO >3 days. Pt received colostomy. Whole BG is still elevated but improving, 147. Cont receiving 3-15 units Lispro SS SUBQ. Pt is maintianing weight, no significant weight loss or gain. Recommend TPN, infuse 1 L first 24 hours, then 2.5 L/ 24 hours, which will provide 2700 kcal and 125g protein. This will meet 100% of pt kcal and protein needs. Will cont to monitor diet and BG. MR Nutritional Support Recommended Enteral / Parental: TPN Recommended Tube Feeding Formu: 1 L first 24 hr, then 2.5 L 24 hr + lipids Recommended Calories: 2200 Recommended Protein: 125 Recommended Lipids Calories: 500 Total Recommended Calories: 2700 YULISSA HEATH Oct 30, 2017 08:42
[2017-10-30] MEDS: HYDROmorphone PCA 6 MG/30 ML IV PRN (13:16)
[2017-10-30 15:29] VITALS: BP 137/90
[2017-10-30 20:12] VITALS: BP 140/98
[2017-10-31] VITALS (7 sets, daily range): BP systolic 136–155; BP diastolic 91–105
[2017-10-31] MEDS: ACETAMINOPHEN 500 MG TAB PO SCH ×3 (00:23→17:53)
[2017-10-31] MEDS: KCL/DNS 20 MEQ/1000 ML PREMIX 1,000 ML IV PRN ×3 (00:23→20:24)
[2017-10-31 06:33] LABS: PLATELET COUNT, AUTOMATED 287 K/uL (150-450)
--- NOTE | 2017-10-31 07:46 | General Surgery Progress Note ---
Subjective Patient Complains of: Respiratory: Other (CPAP) Physical Exam Vital Signs Date Time Temp Pulse Resp B/P (MAP) Pulse Ox O2 Delivery O2 Flow Rate FiO2 10/31/17 07:08 94 10/31/17 04:26 98.0 71 18 145/104 (118) Room Air 4.0 Intake and Output 10/31/17 06:59 Intake Total 3328 ml Output Total 250 ml Balance 3078 ml IV Total 3328 ml Output Urine Total 250 ml # Voids 3 General Appearance: Other (awakens easily to verbal stimulation) Neuro: No Gross deficits Cardiovascular: Regular Rate and Rhythm Respiratory: No Respiratory Distress, Clear to Auscultation, Other (CPAP or BIPAP device in place) GI: Other (distended but less so, few bowel sounds, no flatus or stool per stoma which is pink and viable.) Extremities: Soft and Non Tender, Warm Result Diagram: 10/31/17 0610/29/17 0714 Monitor Interpretation: Normal Sinus Rhythm Assessment and Plan Problems: (1) Large bowel obstruction Status: Acute Assessment & Plan: 41yo male with obstructing mass in sigmoid colon s/p partial colectomy, end colostomy. 1) Large bowel obstruction: s/p partial colectomy and end colostomy 10/28, doing well post operatively. Pain controlled with FUEL ASSEMBLER. Will add scheduled tylenol. Remove NG and narayan today. OOB TID. Increase SSI to high dose as patient with persistently elevated glucose. 10/30/17 0950 Patient seen and examined. He is slowly improving with increased activity and pulmonary toilet. No evidence of return of bowel function yet although he is beginning to have bowel sounds. Await return of bowel function. Sips of clear liquids only. His blood pressure has been difficult to control with prn medications but is improving slowly with resumption of his home medications. Continue to monitor. His diabetes also has been with elevated glucoses with the stress of emergency surgery and intervenous glucose. This is improving slowly and should continue to do so once we start him on oral medications with resumption of a diet and wean his intravenous fluids. 10/31/17 0730 Patient continues doing well. Large bowel obstruction, S/P partial colectomy with end colostomy: Ambulating well and using IS. Pain continues controlled by FUEL ASSEMBLER. Awaiting return of bowel function. Pathology still pending. Blood pressure is still intermittently high but much better controlled with his regular home medications. Diabetes is also with improved control with glucoses not in the 145-165 range. Continue high dose sliding scale insulin. We will restart regular home medications when patient starts eating. Time Spent: < 30 min Exam Sepsis Risk: No Definite Risk ESTEFANIA BARRY MD Oct 31, 2017 07:46
--- NOTE | 2017-10-31 07:47 | General Surgery Progress Note ---
Subjective Progress Notes Subjective See other note filed the same day for complete details. Patient Complains of: Gastrointestinal: Nausea, Vomiting, Flatus, Bowel Movement, Other (distension) Physical Exam Vital Signs Date Time Temp Pulse Resp B/P (MAP) Pulse Ox O2 Delivery O2 Flow Rate FiO2 10/30/17 07:39 95 10/30/17 07:39 Nasal Cannula 2.0 10/30/17 06:52 98.8 83 16 125/89 (101) Intake and Output 10/30/17 06:59 Intake Total 240 ml Output Total 1100 ml Balance -860 ml Intake Oral 240 ml Output Urine Total 950 ml Gastric Drainage Total 150 ml # Voids 3 Result Diagram: 10/29/1771310/29/17713 Monitor Interpretation: Normal Sinus Rhythm Assessment and Plan Problems: (1) Large bowel obstruction Status: Acute Assessment & Plan: 41yo male with obstructing mass in sigmoid colon s/p partial colectomy, end colostomy. 1) Large bowel obstruction: s/p partial colectomy and end colostomy 10/28, doing well post operatively. Pain controlled with DRAG OUT MAN. Will add scheduled tylenol. Remove NG and narayan today. OOB TID. Increase SSI to high dose as patient with persistently elevated glucose. Exam Sepsis Risk: No Definite Risk ESTEFANIA BARRY MD Oct 30, 2017 09:46
[2017-10-31] MEDS: ENOXAPARIN 40 MG/0.4ML SYR SC SCH (09:26)
[2017-10-31] MEDS: PANTOPRAZOLE SOD 40 MG IV VIAL IVP SCH (09:26)
[2017-10-31] MEDS: AMLODIPINE PO SCH (09:26)
[2017-10-31] MEDS: BENAZEPRIL PO SCH (09:26)
[2017-10-31] MEDS: HYDROmorphone PCA 6 MG/30 ML IV PRN (20:24)
[2017-10-31] MEDS: hydrALAZINE HCL 20 MG/ML VIAL IVP PRN (23:14)
[2017-11-01] MEDS: ACETAMINOPHEN 500 MG TAB PO SCH ×3 (01:20→17:18)
[2017-11-01] MEDS: KCL/DNS 20 MEQ/1000 ML PREMIX 1,000 ML IV PRN ×3 (04:23→23:52)
[2017-11-01 04:24] VITALS: BP 137/97
[2017-11-01] MEDS: PANTOPRAZOLE SOD 40 MG IV VIAL IVP SCH (08:59)
[2017-11-01] MEDS: AMLODIPINE PO SCH (08:59)
[2017-11-01] MEDS: BENAZEPRIL PO SCH (08:59)
[2017-11-01] MEDS: ENOXAPARIN 40 MG/0.4ML SYR SC SCH (09:00)
--- NOTE | 2017-11-01 09:38 | General Surgery Progress Note ---
Subjective Progress Notes Subjective Ambulated. No NG tube. + Flatus. Pain under adequate control but still using RESIDENTIAL TREATMENT SPECIALIST Dilaudid Patient Complains of: Neurological: No: Syncope, Confusion, Weakness, Dizziness, Slurred Speech Cardiovascular: No: Chest Pain, Palpitations, Orthostatic Hypotension Respiratory: No: Cough, Congestion, Shortness of Breath, Wheezing Gastrointestinal: Flatus; No Nausea, No Vomiting, No Bowel Movement Genitourinary: No Dysuria Musculoskeletal: Impaired Mobility (Limited by pain); No: Pain, Sprain, Strain Physical Exam Vital Signs Date Time Temp Pulse Resp B/P (MAP) Pulse Ox O2 Delivery O2 Flow Rate FiO2 11/01/17 05:44 88 11/01/17 04:26 12 11/01/17 04:24 98.3 81 137/97 (110) CPAP 1.0 Intake and Output 11/01/17 06:59 Intake Total 1814 ml Output Total 950 ml Balance 864 ml Intake Oral 100 ml IV Total 1714 ml Output Urine Total 900 ml Stool Total 50 ml # Voids 4 General Appearance: Alert, Awake Neuro: No Gross deficits Eyes: PERRLA, Other (EOMI) ENT: Moist Mucous Membranes, Oropharynx Clear Cardiovascular: Normal Rhythm & Peripheral Pulses, Regular Rate and Rhythm, No Edema Respiratory: No Respiratory Distress, Clear to Auscultation GI: Soft and Non-Tender, Other (Wound C/D/I and closed; LUQ stoma- with flatus) : Normal Musculoskeletal: No Weakness/Pain Extremities: Warm, Pulses, Perfused; No Edema Integumentary: Skin Intact without Lesion / Mass; No Jaundice, No Pallor, No Cyanosis Psych: Alert & Oriented X3, Appropriate Mood & Affect Result Diagram: 10/31/17 0601 10/29/17 0714 Monitor Interpretation: Normal Sinus Rhythm Assessment and Plan Problems: (1) Large bowel obstruction Status: Acute Assessment & Plan: 41yo male with obstructing mass in sigmoid colon s/p partial colectomy, end colostomy. 1) Large bowel obstruction: s/p partial colectomy and end colostomy 10/28, doing well post operatively. Pain controlled with RESIDENTIAL TREATMENT SPECIALIST. Will add scheduled tylenol. Remove NG and narayan today. OOB TID. Increase SSI to high dose as patient with persistently elevated glucose. 11/01/17 0845: Ambulated; + Flatus; No BM yet; IS 1999; HTN- used one dose of hydralazine; will restart home B- Dary; Pain while sleeping: Add scheduled NSAID and Neurontin to decrease narcotic use; Add Oral Roxicodone in effort to decrease RESIDENTIAL TREATMENT SPECIALIST Dilaudid; Begin PO liquids- carb controlled; Path - still PENDING; On DVT prophylaxis- PLT count 287- monitored (2) Obesity Status: Chronic Assessment & Plan: 11/01/17: BMI 35 and DM; will use carb controlled diet once taking po (3) Diabetes Status: Chronic Assessment & Plan: 11/01/17: Insulin held; On SSI, high dose; Start carb cont rolled po liquids today (4) Hypertension Status: Chronic Assessment & Plan: 11/01/17: Diastolic HTN last PM; Remains on home amlodipine; Restart Metoprolol home medication; Hydralazine PRN (5) Acute blood loss as cause of postoperative anemia Status: Acute Assessment & Plan: No transfusion for HgB > 7; has been monitored- stable (6) Pain management Status: Acute Assessment & Plan: 11/01/17: Added multimodal therapy with: scheduled Neurontin, Tylenol, Ibuprofen; added PRN oxycodone in order to limit IV narcotics; Will D/C Dilaudid if minimized Exam Sepsis Risk: No Definite Risk Problem Qualifiers (1) Obesity: Obesity type: due to excess calories Serious obesity comorbidity presence: with serious comorbidity Body mass index: BMI 35.0-35.9 (2) Diabetes: Diabetes mellitus type: type 2 Diabetes mellitus correction insulin use: without termite control service representative use Diabetes mellitus complication status: with unspecified complications Qualified Codes: E11.8 - Type 2 diabetes mellitus with unspecified complications (3) Hypertension: Hypertension type: unspecified Qualified Codes: I10 - Essential (primary) hypertension MIKE ARMANDO MD Nov 01, 2017 09:19
--- NOTE | 2017-11-01 10:14 | Medical Nutrition Therapy ---
Nutrition Anthropometrics Height (Inches): 70.00 Height (Calculated Centimeters: 177.850416 Weight (Pounds): 244 Weight (Calculated Kilograms): 110.677 BMI: 35 Douglas Nutrition Score: Probably Inadequate Douglas Nutrition Risk Score: 19 Dietary Referral Nutrition Risk Factors: Nutrition Risk Comment: Physical Findings Physical Appearance: Obese BMI 30-39 Skin Appearance Skin Appearance: Edema Edema Location Modifier: Edema Location: Type of Edema: Degree of Edema: Gastrointestinal Symptoms GI Symtoms: Change in Bowel Pattern Tube Present: NG Bowel Sounds: Recent Bowel Pattern: Constipated Stool Characteristics: Nutritional Diagnosis Nutritional Risk Acuity 1: NPO/CL > 3 days, GI Obstruction Nutritional Risk Acuity 2: V/D > 3 Days, Head/Neck/GI Cancer, New Colostomy Past Medical History: Hx of T2DM, HTN, and Obesity. Nutritional Acuity: 1-High Nutrition Diagnosis: Altered GI Function Nutrition Etiology: Physiological Causes Nutrition Problem/Etiology/Sym: AEB dx LBO with colon Ca Adjusted Energy Requirement Re: 2800 ([place]- Souza adj for obesity X 1.2 SF) Protein Requirement: 115 (1.5 gm/kg IBWR) Fluid Requirement: 2800 (1ml/kcal) Diet Type: Clear Liquids Nutrition Intervention: Incr diet as tolerated Additional Diet Restrictions: PROVIDE ENSURE CLEAR WHILE ON CLEAR LIQUID DIET Nutrition Monitoring & Eval Nutrition Goals: Eat 75-100% Meal RD Patient Assessment Time: [address] Assessment Type: RD Re-Assessment Patient Nutrition Acuity: 1-High Follow Up Date: Nov 03, 2017 Nutritional Comment: 10/27. Admitted for worsening ab pain and constipation. Pt is being treated for a large bowel obstruction. Pt has 2 month history of N/V, diarrhea and constipation. Pt is currently NPO, NG tube GI decompression was palced for bowel rest. Pt did undergo a sigmoidoscopy. Notable labs include: low sodium 134, calcium 8.1, total protein 6.2, and elevated BUN 32 and random BG of 245. Pt is on Lispro SS2-10 units SUBQ. Pt is 70in, 244lbs, and has a obese class 2 BMI of 35.1. Will monitor pt diet and labs. MR 10/28 Day 2 NPO post surgery for colon CA with LBO. Faint bowel sounds noted. Pt has elevated BG up to 220. Pt has hx of T2DM. Recommend advance to ADA diet when appropriate to advance diet. Alb 3.5, A1C 9.7. Will cont to monitor. BK 10/30. Pt NPO >3 days. Pt received colostomy. Whole BG is still elevated but improving, 147. Cont receiving 3-15 units Lispro SS SUBQ. Pt is maintianing weight, no significant weight loss or gain. Recommend TPN, infuse 1 L first 24 hours, then 2.5 L/ 24 hours, which will provide 2700 kcal and 125g protein. This will meet 100% of pt kcal and protein needs. Will cont to monitor diet and BG. MR 9/2 Diet advanced to clear liquids. Will codie clear liquid nutr supplment. BG cont elevated 129-256 past 3 days. Pt is recieving insulin. Will cont to monitor. JAYY ARRIETA Nov 01, 2017 10:14
[2017-11-01] MEDS: IBUPROFEN 800 MG TAB PO SCH ×2 (12:16→17:18)
[2017-11-01] MEDS: METOPROLOL SUCC XL 50 MG TABCR 50 MG TAB.ER.24H PO SCH (12:16)
[2017-11-01] MEDS: GABAPENTIN 300 MG CAP PO SCH ×2 (12:16→20:37)
[2017-11-01] MEDS: oxyCODONE HCL 5 MG CAP PO PRN ×2 (12:16→20:38)
[2017-11-01 12:19] VITALS: BP 144/98
[2017-11-01 17:19] VITALS: BP 144/102
[2017-11-01 20:31] VITALS: BP 160/101
[2017-11-02 00:27] VITALS: BP 144/97
[2017-11-02] MEDS: ACETAMINOPHEN 500 MG TAB PO SCH ×3 (00:28→17:00)
[2017-11-02] MEDS: IBUPROFEN 800 MG TAB PO SCH ×3 (00:28→17:00)
[2017-11-02 05:54] VITALS: BP 142/97
[2017-11-02 06:23] LABS: PLATELET COUNT, AUTOMATED 313 K/uL (150-450)
--- NOTE | 2017-11-02 08:16 | General Surgery Progress Note ---
Subjective Patient Complains of: Neurological: No: Syncope, Confusion, Weakness, Dizziness, Slurred Speech Cardiovascular: No: Chest Pain, Palpitations, Orthostatic Hypotension Respiratory: No: Cough, Congestion, Shortness of Breath, Wheezing Gastrointestinal: Flatus, Bowel Movement; No Nausea, No Vomiting Genitourinary: No Dysuria, No Hematuria, No Urinary Incontinence Musculoskeletal: Other; No: Pain, Sprain, Strain, Impaired Mobility Physical Exam Vital Signs Date Time Temp Pulse Resp B/P (MAP) Pulse Ox O2 Delivery O2 Flow Rate FiO2 11/02/17 05:54 98.2 69 16 142/97 (112) 91 CPAP 11/01/17 04:24 1.0 Intake and Output 11/02/17 06:59 Intake Total 2680 ml Output Total 375 ml Balance 2305 ml Intake Oral 690 ml IV Total 1990 ml Output Urine Total 325 ml Stool Total 50 ml General Appearance: Alert, Awake, No Acute Distress Neuro: No Gross deficits Eyes: PERRLA ENT: Moist Mucous Membranes, Oropharynx Clear Cardiovascular: Normal Rhythm & Peripheral Pulses, Regular Rate and Rhythm Respiratory: No Respiratory Distress, Clear to Auscultation GI: Soft and Non-Tender, Other (Stoma with small stool output; edema; Midline wound C/D/I) : Normal Extremities: Warm, Pulses, Perfused; No Edema Integumentary: Skin Intact without Lesion / Mass Psych: Alert & Oriented X3, Appropriate Mood & Affect Result Diagram: 11/02/1761811/02/17618 Monitor Interpretation: Normal Sinus Rhythm Assessment and Plan Problems: (1) Large bowel obstruction Status: Acute Assessment & Plan: 41yo male with obstructing mass in sigmoid colon s/p partial colectomy, end colostomy. 1) Large bowel obstruction: s/p partial colectomy and end colostomy 10/28, doing well post operatively. Pain controlled with ADOPTION SERVICES MANAGER. Will add scheduled tylenol. Remove NG and narayan today. OOB TID. Increase SSI to high dose as patient with persistently elevated glucose. 11/01/17 0845: Ambulated; + Flatus; No BM yet; IS 1999; HTN- used one dose of hydralazine; will restart home B- Dary; Pain while sleeping: Add scheduled NS AID and Neurontin to decrease narcotic use; Add Oral Roxicodone in effort to decrease ADOPTION SERVICES MANAGER Dilaudid; Begin PO liquids- carb controlled; Path - still PENDING; On DVT prophylaxis- PLT count 287- monitored 11/02/17 0805: Ambulated; + Flatus; + liquid BM; IS 2200; HTN- No hydralazine; Pain x 1- ADOPTION SERVICES MANAGER Dilaudid use 0.2 only- D/C today; Begin Full liquids then regular diet- carb controlled; Path - still PENDING; On DVT prophylaxis- PLT count- monitored; Consider D/C home tomorrow. Stoma teaching today (2) Obesity Status: Chronic Assessment & Plan: 11/01/17: BMI 35 and DM; will use carb controlled diet once taking po (3) Diabetes Status: Chronic Assessment & Plan: 11/01/17: On SSI, high dose; Start carb controlled po liquids today 11/02/17: Advance to carb controlled reg diet slowly today; restart home po DM meds (4) Hypertension Status: Chronic Assessment & Plan: 11/01/17: Diastolic HTN last PM; Remains on home amlodipine; Restart Metoprolol home medication; Hydralazine PRN 11/02/17: Diastolic HTN; will need outpt followup. Back on all home meds (5) Acute blood loss as cause of postoperative anemia Status: Acute Assessment & Plan: No transfusion for HgB > 7; has been monitored- stable 11/02/17: HGB stable (6) Pain management Status: Acute Assessment & Plan: 11/01/17: Added multimodal therapy with: scheduled Neurontin, Tylenol, Ibuprofen; added PRN oxycodone in order to limit IV narcotics; Will D/C Dilaudid if minimized 11/02/17: D/C Dilaudid today- used only one time Exam Sepsis Risk: No Definite Risk Problem Qualifiers (1) Obesity: Obesity type: due to excess calories Serious obesity comorbidity presence: with serious comorbidity Body mass index: BMI 35.0-35.9 (2) Diabetes: Diabetes mellitus type: type 2 Diabetes mellitus fci insulin use: without assistant terminal manager use Diabetes mellitus complication status: with unspecified complications Qualified Codes: E11.8 - Type 2 diabetes mellitus with unspecified complications (3) Hypertension: Hypertension type: unspecified Qualified Codes: I10 - Essential (primary) hypertension MIKE ARMANDO MD Nov 02, 2017 08:16
[2017-11-02] MEDS ORDERED: MORPHINE 4 MG/ML SDV IVP PRN (08:20)
[2017-11-02] MEDS ORDERED: hydrALAZINE HCL 20 MG/ML VIAL IVP PRN (08:25)
[2017-11-02 08:34] VITALS: BP 148/103
[2017-11-02] MEDS: METOPROLOL SUCC XL 50 MG TABCR 50 MG TAB.ER.24H PO SCH (08:35)
[2017-11-02] MEDS: PANTOPRAZOLE SOD 40 MG TABEC PO SCH (08:35)
[2017-11-02] MEDS: GABAPENTIN 300 MG CAP PO SCH ×2 (08:36→20:34)
[2017-11-02] MEDS: ENOXAPARIN 40 MG/0.4ML SYR SC SCH (08:36)
[2017-11-02] MEDS: oxyCODONE HCL 5 MG CAP PO PRN ×3 (08:36→20:33)
[2017-11-02] MEDS: BENAZEPRIL PO SCH (08:37)
[2017-11-02] MEDS: AMLODIPINE PO SCH (08:37)
[2017-11-02] MEDS ORDERED: OXYC5TAB38 PO (08:43)
[2017-11-02] MEDS ORDERED: ENOX40DI8 SC (08:43)
[2017-11-02] MEDS ORDERED: PANT40TA65 PO (08:43)
[2017-11-02] MEDS ORDERED: IBUP800T37 PO (08:43)
[2017-11-02] MEDS ORDERED: ACET-2043 PO (08:43)
[2017-11-02] MEDS ORDERED: GABA-549 PO (08:43)
[2017-11-02] MEDS ORDERED: POLY17PO25 PO (08:54)
[2017-11-02] MEDS ORDERED: DOCU-416 PO (08:55)
[2017-11-02] MEDS: POLYETHYLENE GLYCOL 17 GM PKT PO SCH ×2 (09:34→20:34)
[2017-11-02] MEDS: PIOGLITAZONE HCL 15 MG TAB PO SCH (09:34)
[2017-11-02] MEDS: DOCUSATE SODIUM 100 MG CAP PO SCH ×2 (09:34→20:34)
[2017-11-02 12:16] VITALS: BP 158/96
[2017-11-02 15:05] VITALS: BP 136/90
[2017-11-02 19:21] VITALS: BP 155/93
[2017-11-02] MEDS: INSULIN HUM LISPRO 100 UN/ML 3 ML VIAL SUBQ PRN (20:41)
[2017-11-03] MEDS: ACETAMINOPHEN 500 MG TAB PO SCH ×2 (00:35→09:18)
[2017-11-03] MEDS: IBUPROFEN 800 MG TAB PO SCH ×2 (00:35→09:17)
[2017-11-03 00:38] VITALS: BP 133/90
[2017-11-03 03:00] VITALS: BP 138/82
--- NOTE | 2017-11-03 08:04 | General Surgery Progress Note ---
Subjective Progress Notes Subjective no overnight events Physical Exam Vital Signs Date Time Temp Pulse Resp B/P (MAP) Pulse Ox O2 Delivery O2 Flow Rate FiO2 11/03/17 06:00 92 11/03/17 03:00 98.2 16 138/82 (100) CPAP 3.0 11/02/17 15:05 90 Intake and Output 11/03/17 06:59 Intake Total 0 ml Output Total 700 ml Balance -700 ml Intake Oral 0 ml Stool Total 700 ml # Voids 2 # Bowel Movements 2 General Appearance: Alert, Awake, No Acute Distress Eyes: PERRLA ENT: Moist Mucous Membranes Cardiovascular: Normal Rhythm & Peripheral Pulses, Regular Rate and Rhythm GI: Other (incision c/d/i, colostomy functioning) Extremities: Soft and Non Tender Result Diagram: 11/02/1761811/02/17618 Monitor Interpretation: Normal Sinus Rhythm Assessment and Plan Problems: (1) Large bowel obstruction Status: Acute Assessment & Plan: 41yo male with obstructing mass in sigmoid colon s/p partial colectomy, end colostomy. 1) Large bowel obstruction: s/p partial colectomy and end colostomy 10/28, doing well post operatively. Pain controlled with ENERGY CONSERVATION SPECIALIST. Will add scheduled tylenol. Remove NG and narayan today. OOB TID. Increase SSI to high dose as patient with persistently elevated glucose. 11/01/17 0845: Ambulated; + Flatus; No BM yet; IS 2000; HTN- used one dose of hydralazine; will restart home B- Dary; Pain while sleeping: Add scheduled NSAID and Neurontin to decrease narcotic use; Add Oral Roxicodone in effort to decrease ENERGY CONSERVATION SPECIALIST Dilaudid; Begin PO liquids- carb controlled; Path - still PENDING; On DVT prophylaxis- PLT count 287- monitored 11/02/17 0805: Ambulated; + Flatus; + liquid BM; IS 2200; HTN- No hydralazine; Pain x 1- ENERGY CONSERVATION SPECIALIST Dilaudid use 0.2 only- D/C today; Begin Full liquids then regular diet- carb controlled; Path - still PENDING; On DVT prophylaxis- PLT count- monitored; Consider D/C home tomorrow. Stoma teaching today 11/03/17: home today (2) Obesity Status: Chronic Assessment & Plan: 11/01/17: BMI 35 and DM; will use carb controlled diet once taking po (3) Diabetes Status: Chronic Assessment & Plan: 11/01/17: On SSI, high dose; Start carb controlled po liquids today 11/02/17: Advance to carb controlled reg diet slowly today; restart home po DM meds (4) Hypertension Status: Chronic Assessment & Plan: 11/01/17: Diastolic HTN last PM; Remains on home amlodipine; Restart Metoprolol home medication; Hydralazine PRN 11/02/17: Diastolic HTN; will need outpt followup. Back on all home meds (5) Acute blood loss as cause of postoperative anemia Status: Acute Assessment & Plan: No transfusion for HgB > 7; has been monitored- stable 11/02/17: HGB stable (6) Pain management Status: Acute Assessment & Plan: 11/01/17: Added multimodal therapy with: scheduled Neurontin, Tylenol, Ibuprofen; added PRN oxycodone in order to limit IV narcotics; Will D/C Dilaudid if minimized 11/02/17: D/C Dilaudid today- used only one time Exam Sepsis Risk: No Definite Risk Problem Qualifiers (1) Obesity: Obesity type: due to excess calories Serious obesity comorbidity presence: with serious comorbidity Body mass index: BMI 35.0-35.9 (2) Diabetes: Diabetes mellitus type: type 2 Diabetes mellitus adjunct faculty for medical terminology insulin use: without adjunct faculty for medical terminology use Diabetes mellitus complication status: with unspecified complications Qualified Codes: E11.8 - Type 2 diabetes mellitus with unspecified complications (3) Hypertension: Hypertension type: unspecified Qualified Codes: I10 - Essential (primary) hypertension DORINA LOWYR MD Nov 03, 2017 08:04
[2017-11-03 09:04] VITALS: BP 150/100
[2017-11-03] MEDS: POLYETHYLENE GLYCOL 17 GM PKT PO SCH (09:16)
[2017-11-03] MEDS: PIOGLITAZONE HCL 15 MG TAB PO SCH (09:16)
[2017-11-03] MEDS: GABAPENTIN 300 MG CAP PO SCH (09:16)
[2017-11-03] MEDS: METOPROLOL SUCC XL 50 MG TABCR 50 MG TAB.ER.24H PO SCH (09:16)
[2017-11-03] MEDS: PANTOPRAZOLE SOD 40 MG TABEC PO SCH (09:17)
[2017-11-03] MEDS: DOCUSATE SODIUM 100 MG CAP PO SCH (09:17)
[2017-11-03] MEDS: ENOXAPARIN 40 MG/0.4ML SYR SC SCH (09:18)
[2017-11-03] MEDS: BENAZEPRIL PO SCH (09:19)
[2017-11-03] MEDS: AMLODIPINE PO SCH (09:19)
--- NOTE | 2017-11-03 13:06 | Medical Nutrition Therapy ---
Nutrition Anthropometrics Height (Inches): 70.00 Height (Calculated Centimeters: 177.728055 Weight (Pounds): 244 Weight (Calculated Kilograms): 110.677 BMI: 35 Douglas Nutrition Score: Probably Inadequate Douglas Nutrition Risk Score: 19 Dietary Referral Nutrition Risk Factors: Nutrition Risk Comment: Physical Findings Physical Appearance: Obese BMI 30-39 Skin Appearance Skin Appearance: Edema Edema Location Modifier: Edema Location: Type of Edema: Degree of Edema: Gastrointestinal Symptoms GI Symtoms: Change in Bowel Pattern Tube Present: NG Bowel Sounds: Recent Bowel Pattern: Constipated Stool Characteristics: Nutritional Diagnosis Nutritional Risk Acuity 1: GI Obstruction Nutritional Risk Acuity 2: V/D > 3 Days, Head/Neck/GI Cancer, New Colostomy Past Medical History: Hx of T2DM, HTN, and Obesity. Nutritional Acuity: 1-High Nutrition Diagnosis: Altered GI Function Nutrition Etiology: Physiological Causes Nutrition Problem/Etiology/Sym: AEB dx LBO with colon Ca Adjusted Energy Requirement Re: 2800 ([place]- Souza adj for obesity X 1.2 SF) Protein Requirement: 115 (1.5 gm/kg IBWR) Fluid Requirement: 2800 (1ml/kcal) Diet Type: Calorie Controlled, Diabetic Nutrition Intervention: Cont diet as ordered, Encourage intake Additional Diet Restrictions: PROVIDE ENSURE CLEAR WHILE ON CLEAR LIQUID DIET Nutrition Monitoring & Eval RD Patient Assessment Time: [address] Assessment Type: RD Re-Assessment Patient Nutrition Acuity: 1-High Follow Up Date: Nov 06, 2017 Nutritional Comment: 10/27. Admitted for worsening ab pain and constipation. Pt is being treated for a large bowel obstruction. Pt has 2 month history of N/V, diarrhea and constipation. Pt is currently NPO, NG tube GI decompression was palced for bowel rest. Pt did undergo a sigmoidoscopy. Notable labs include: low sodium 134, calcium 8.1, total protein 6.2, and elevated BUN 32 and random BG of 245. Pt is on Lispro SS2-10 units SUBQ. Pt is 70in, 244lbs, and has a obese class 2 BMI of 35.1. Will monitor pt diet and labs. MR 10/28 Day 2 NPO post surgery for colon CA with LBO. Faint bowel sounds noted. Pt has elevated BG up to 220. Pt has hx of T2DM. Recommend advance to ADA diet when appropriate to advance diet. Alb 3.5, A1C 9.7. Will cont to monitor. BK 10/30. Pt NPO >3 days. Pt received colostomy. Whole BG is still elevated but improving, 147. Cont receiving 3-15 units Lispro SS SUBQ. Pt is maintianing weight, no significant weight loss or gain. Recommend TPN, infuse 1 L first 24 hours, then 2.5 L/ 24 hours, which will provide 2700 kcal and 125g protein. This will meet 100% of pt kcal and protein needs. Will cont to monitor diet and BG. MR 9/2 Diet advanced to clear liquids. Will codie clear liquid nutr supplment. BG cont elevated 129-256 past 3 days. Pt is recieving insulin. Will cont to monitor. BK 11/03. Diet changed to calorie controlled and diabetic diet. Pt is consuming 75% of small meals. Pt cont on insulin. BG levels cont to be elevated but are improving, currently 119. Will cont to monitor BG levels and intake. YULISSA BANDA Nov 03, 2017 11:01
--- NOTE | 2017-11-26 08:12 | Short(Outpt) Discharge Summary ---
Discharge Summary Reason for Hosp/Final Diag: (1) Large bowel obstruction Status: Acute Hospital Course & Plan: Patient was admitted to the surgical service with an obstructing colon cancer. He was taken to the OR for flexible sigmoidoscopy with biopsy which confirmed a diagnosis of colon adenocarcinoma in the sigmoid colon. He underwent staging work up which was negative. He was then taken to the operating room for sigmoid colectomy and end colostomy. The procedure was uncomplicated. The patient had an uncomplicated post operative course. On the day of discharge, he was tolerating a regular diet, ambulating independently, caring for his ostomy which was functional, and pain was controlled with oral medications. 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 Departure Weight (Pounds): 236 Weight (Ounces): 5.0 Condition: Improved Discharge: Home Home Health RN Follow Up For: Wound Care Discharge Code Status: Full Code Time Spent: < 30 min Discharge Instructions Home Meds Active Scripts Oxycodone Hcl/Acet 5/325 Mg (ENDOCET 5-325 TABLET) 1 Each Tablet, 1 TAB PO Q4H PRN for PAIN, #20 TAB 0 Refills Prov:AUDIE MONAE MD 11/19/17 Docusate Sodium (COLACE) 100 Mg Capsule, 100 MG PO BID for constipation prevention for 30 Days, #60 CAPSULE 2 Refills Prov:MIKE ARMANDO MD 11/02/17 Polyethylene Glycol 3350 (MIRALAX) 17 Gm Powd.pack, 17 GM PO BID for 30 Days, #60 PKT Prov:MIKE ARMANDO MD 11/02/17 Gabapentin (GABAPENTIN) 300 Mg Capsule, 300 MG PO TID for PAIN for 30 Days, #90 CAPSULE 2 Refills May wean off once not taking oral narcotics Prov:MIKE ARMANDO MD 11/02/17 Acetaminophen (ACETAMINOPHEN) 500 Mg Tablet, 1000 MG PO Q8H for PAIN MDD 3000 mg for 14 Days, CAP Take to limit narcotic use. May stop once off all other pain medications Prov:MIKE ARMANDO MD 11/02/17 Reported Medications Amlodipine Besylate/Benazepril (AMLODIPINE-BENAZEPRIL 10-40 MG) 1 Each Capsule, 1 EACH PO QDAY, CAPSULE 10/30/17 Metoprolol Succinate (METOPROLOL SUCCINATE) 50 Mg Tab.er.24h, 2 TAB PO QDAY, TAB 10/26/17 Pioglitazone Hcl (PIOGLITAZONE HCL) 45 Mg Tablet, 45 MG PO QDAY 10/26/17 Discontinued Scripts Enoxaparin Sodium (LOVENOX) 40 Mg/0.4 Ml Disp.syrin, 40 MG SC Q24H for Clot prevention for 14 Days, #14 MG 1 Refill Prov:MIKE ARMANDO MD 11/02/17 Diet: Regular Activity: As Tolerated Special Instructions: No heavy lifting of anything greater than 20lb. Venous Thromboembolism VTE Risk Physician Assess for VTE Risk: Yes Patient's VTE Risk: High Antithrombotics Is Pt On Any Antithrombotics?: Yes JOAN KENNY MD Nov 25, 2017 09:08 <Electronically signed by JOAN KENNY MD> D/ 7 7 7 HERLINDA/KEI CC: TUCKER
== END 2017-11-03 11:40 | disposition home or self-care (01) | DRG 330 ==
LOC: ER 12:39 → MED 15:54
PROVIDERS: ADMIT Surgery; ATTEND Surgery
PROC: 0D9670Z Drainage of Stomach with Drainage Device, Via Natural or Artificial Opening (ICD-10-PCS; 2017-10-26)
PROC: 0DJD8ZZ Inspection of Lower Intestinal Tract, Via Natural or Artificial Opening Endoscopic (ICD-10-PCS; principal; 2017-10-27 10:10)
PROC: 0DBM0ZX Excision of Descending Colon, Open Approach, Diagnostic (ICD-10-PCS; 2017-10-28)
PROC: 0D1M0Z4 Bypass Descending Colon to Cutaneous, Open Approach (ICD-10-PCS; 2017-10-28 12:13)
PROC: 5A09357 Assistance with Respiratory Ventilation, Less than 24 Consecutive Hours, Continuous Positive Airway Pressure (ICD-10-PCS; 2017-10-29)
DX: C18.7 Malignant neoplasm of sigmoid colon (principal); C18.6 Malignant neoplasm of descending colon; D62 Acute posthemorrhagic anemia; C77.2 Secondary and unspecified malignant neoplasm of intra-abdominal lymph nodes; I10 Essential (primary) hypertension; G47.33 Obstructive sleep apnea (adult) (pediatric); E66.09 Other obesity due to excess calories; Z68.35 Body mass index [BMI] 35.0-35.9, adult; E11.9 Type 2 diabetes mellitus without complications
CPT/HCPCS: 36415; 36416; 71045; 71250; 76942; 81210; 81275; 81276; 81311; 82040; 82247; 82310; 82374; 82378; 82435; 82565; 82947; 82948; 83036; 83605; 83735; 84075; 84100; 84132; 84155; 84295; 84450; 84460; 84520; 85025; 85610; 85730; 88309; 88344; 88381; 93005; 96361; 96365; 96366; 96367; 96374; 96375; 96376; 99283; 99285; A4406; C9113; J0360; J1100; J1170; J1650; J2001; J2250; J2270; J2405; J2543; J2704; J3010; J3480; J7030; J7050

== ENCOUNTER → 2017-10-26 | Outpatient (REF) | payer BC ==
[~2017-10-26] MED LIST changes: +METO50TA19 PO; +PIOG45TA65 PO
[2017-10-26 10:46] LABS: PLATELET COUNT, AUTOMATED 348 K/uL (150-450)
== END ==
PROVIDERS: ATTEND Family Medicine
DX: R10.9 Unspecified abdominal pain (principal)
CPT/HCPCS: 82040; 82150; 82247; 82310; 82374; 82435; 82565; 82947; 83690; 84075; 84132; 84155; 84295; 84450; 84460; 84484; 84520; 85025

== ENCOUNTER → 2017-10-26 | Outpatient (CLI) | payer BC ==
[~2017-10-26] MED LIST changes: +DEXAMETHASONE SOD PHOS 10MG/ML ONE; +HYDROmorphone HCL 2 MG/ML SDV ONE; +IOPAMIDOL 76% 75 ML INFUS BTL 75 ML ONE; +LIDOCAINE MPF 1% 5 ML VIAL ONE; +LIDOCAINE/SOD BICARB 8.4% SYR ONE; +MIDAZOLAM 2 MG/2 ML VIAL ONE; +ONDANSETRON 4 MG/2 ML VIAL ONE; +PROPOFOL EMUL(*) 10MG/ML 20 ML 20 ML ONE; +ROCURONIUM BROM 10 MG/ML 10 ML ONE; +fentaNYL CITR 100 MCG/2 ML AMP ONE
--- NOTE | 2017-10-26 12:25 | RADIOLOGY IMAGING REPORT ---
FACILITY: [facility] PATIENT NAME: Boris Salazar : 1975 MR: [id number] V: [id number] EXAM DATE: ORDERING PHYSICIAN: RAJ KOHLI TECHNOLOGIST: Location: [facility] [place] Patient: Boris Salazar : 1975 Visit/Account:[id number] Date of Sevice: 10/26/2017 ABDOMEN/PELVIS W/WO CONTRAST HISTORY: 41-year-old male with abdominal pain and vomiting TECHNIQUE: CT abdomen and pelvis with and without intravenous contrast. Contiguous axial images of the abdomen and pelvis was performed from the lung bases to the symphysis pubis. One of the following dose optimization techniques was utilized in the performance of this exam: Autom ated exposure control; adjustment of the mA and/or kV according to the patient's size; or use of an i terative reconstruction technique. Specific details can be referenced in the facility's radiology C T exam operational policy. CONTRAST: 75 cc of Isovue-370 COMPARISON: CT abdomen 07/14/2008 FINDINGS: Visualized lung bases: There is a small hiatal hernia. 3 mm right middle lobe micronodules noted im age 2. Some atelectasis at the lung bases is also noted. Hepatobiliary: Negative. Spleen: Negative. Adrenals: Negative. Kidneys/: Benign-appearing cyst lower pole left kidney measures 3.4 x 1.8 cm. Pancreas: Negative. GI: There is a circumferential obstructing mass at the junction of the descending and sigmoid colon extending for a distance of nearly 9 cm highly concerning for colon cancer. There is upstream obstru ction of the colon and distal small bowel. The cecum measures 9.8 cm. No evidence for free air. Sm all amount of free fluid in the pelvis is noted. Also noted are some prominent adjacent mesenteric lymph nodes potentially metastatic the largest sergio uring 1.3 x 0.8 cm. Vessels/spaces/nodes: Left lower quadrant mesenteric lymph nodes have been described above. Smaller retroperitoneal lymph nodes are nonspecific and stable from 2008. Bones/soft tissues: Patient has a mild scoliosis. IMPRESSION: 1. Annular obstructing mass at the junction of the descending and sigmoid colon extending for 9 cm i n length highly concerning for an obstructing colon cancer. There appears to be transmural extension of tumor with some slightly prominent adjacent mesenteric lymph nodes concerning for metastatic johnnie onal adenopathy. 2. The colon above the mass is obstructed and the cecum measures 9.8 cm in diameter. No evidence fo r free air or bowel perforation. Small amount of free fluid is noted. 3. No evidence for metastatic disease elsewhere. Specifically no liver metastases are seen. 4. 3 mm right middle lobe micronodule can be followed. Results were called to RAJ KOHLI at 10/26/2017 12:19 PM. Report Dictated By: Karel Gómez MD at 10/26/2017 12:10 PM Report E-Signed By: Karel Gómez MD at 10/26/2017 12:21 PM WSN:[email or web address]
== END ==
LOC: CT 11:05
PROVIDERS: ATTEND Family Medicine
DX: K44.9 Diaphragmatic hernia without obstruction or gangrene (principal); J98.11 Atelectasis; N28.1 Cyst of kidney, acquired; K63.89 Other specified diseases of intestine; M41.9 Scoliosis, unspecified
CPT/HCPCS: 74178; Q9967

== ENCOUNTER 2017-11-19 00:20 | Day surgery (SDC) | payer BC ==
[2017-10-27 10:43] VITALS: Ht 179.1 cm; Wt 107.0 kg
[~2017-11-19] VITALS: Ht 179.1 cm; Wt 107.0 kg
[~2017-11-19 00:20] MED LIST changes: +ACET-2043 PO; +AMLO-122 PO; +DOCU-416 PO; +ENOX40DI8 SC; +GABA-549 PO; +IBUP800T37 PO; +METO50TA19 PO; +OXYC5TAB38 PO; +PANT40TA65 PO; +PIOG45TA65 PO; +POLY17PO25 PO
[2017-11-19] MEDS ORDERED: fentaNYL CITR 100 MCG/2 ML AMP ONE (08:28)
[2017-11-19] MEDS ORDERED: LIDOCAINE MPF 1% 5 ML VIAL ONE (08:29)
[2017-11-19] MEDS ORDERED: PROPOFOL EMUL(*) 10MG/ML 20 ML 20 ML ONE (08:29)
[2017-11-19] MEDS ORDERED: DEXAMETHASONE SOD PHOS 10MG/ML ONE (08:29)
[2017-11-19] MEDS ORDERED: ONDANSETRON 4 MG/2 ML VIAL ONE (08:29)
[2017-11-19 09:12] VITALS: BP 148/102
[2017-11-19] MEDS ORDERED: ROPIVACAINE 0.5% 20 ML VIAL ONE (09:26)
[2017-11-19] MEDS ORDERED: HEPARIN SOD LCK FLSH 100 UN/ML ONE ×2 (09:26→09:28)
[2017-11-19] MEDS ORDERED: NS(*) 0.9% 10 ML VIAL 20 ML ONE (09:27)
[2017-11-19] MEDS ORDERED: LIDOCAINE/SOD BICARB 8.4% SYR ID ONE (09:30)
[2017-11-19] MEDS ORDERED: ceFAZolin(*) 2GM/D5W 50ML 50 ML IVPB ONE (09:30)
[2017-11-19] MEDS ORDERED: MIDAZOLAM 2 MG/2 ML VIAL IVP PRN (09:30)
[2017-11-19] MEDS ORDERED: NORMOSOL R SOLN(*) 1000 ML BAG 1,000 ML IV PRN (09:30)
[2017-11-19] MEDS ORDERED: FAMOTIDINE 20 MG TAB PO ONE (09:30)
[2017-11-19] MEDS ORDERED: SUGAMMADEX SOD 500 MG/5 ML SDV ONE (10:58)
[2017-11-19] MEDS ORDERED: OXYC-854 PO (11:26)
--- NOTE | 2017-11-19 11:34 | Short(Outpt) Discharge Summary ---
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 Status: Chronic Hospital Course & Plan: Right IJ Power Port placement Departure Discharge to: Home, Self Care Discharge Instructions Home Meds Active Scripts Oxycodone Hcl/Acet 5/325 Mg (ENDOCET 5-325 TABLET) 1 Each Tablet, 1 TAB PO Q4H PRN for PAIN, #20 TAB 0 Refills Prov:AUDIE MONAE MD 11/19/17 Docusate Sodium (COLACE) 100 Mg Capsule, 100 MG PO BID for constipation prevention for 30 Days, #60 CAPSULE 2 Refills Prov:MIKE ARMANDO MD 11/02/17 Polyethylene Glycol 3350 (MIRALAX) 17 Gm Powd.pack, 17 GM PO BID for 30 Days, #60 PKT Prov:MIKE ARMANDO MD 11/02/17 Gabapentin (GABAPENTIN) 300 Mg Capsule, 300 MG PO TID for PAIN for 30 Days, #90 CAPSULE 2 Refills May wean off once not taking oral narcotics Prov:MIKE ARMANDO MD 11/02/17 Enoxaparin Sodium (LOVENOX) 40 Mg/0.4 Ml Disp.syrin, 40 MG SC Q24H for Clot prevention for 14 Days, #14 MG 1 Refill Prov:MIKE ARMANDO MD 11/02/17 Acetaminophen (ACETAMINOPHEN) 500 Mg Tablet, 1000 MG PO Q8H for PAIN MDD 3000 mg for 14 Days, CAP Take to limit narcotic use. May stop once off all other pain medications Prov:MIKE ARMANDO MD 11/02/17 Reported Medications Amlodipine Besylate/Benazepril (AMLODIPINE-BENAZEPRIL 10-40 MG) 1 Each Capsule, 1 EACH PO QDAY, CAPSULE 10/30/17 Metoprolol Succinate (METOPROLOL SUCCINATE) 50 Mg Tab.er.24h, 2 TAB PO QDAY, TAB 10/26/17 Pioglitazone Hcl (PIOGLITAZONE HCL) 45 Mg Tablet, 45 MG PO QDAY 10/26/17 Discontinued Scripts Oxycodone Hcl (OXYCODONE HCL) 5 Mg Tablet, 5-10 MG PO Q4H PRN for PAIN for 10 Days, #40 TAB Wean off the narcotic first. May take 1-2 tablets as needed for pain. [place] to reserve for bedtime if possible. Prov:MIKE ARMANDO MD 11/02/17 Pantoprazole Sodium (PANTOPRAZOLE SODIUM) 40 Mg Tablet.dr, 40 MG PO QDAY for 30 Days, #30 TAB 2 Refills May stop once off of the Ibuprofen Prov:MIKE ARMANDO MD 11/02/17 Ibuprofen (IBUPROFEN) 800 Mg Tablet, 800 MG PO Q8H for PAIN for 30 Days, #90 CAP 2 Refills May stop once weaned off of the oral narcotic AND the oral neurontin (Gabapentin) Prov:MIKE ARMANDO MD 11/02/17 Diet: Regular Activity: As Tolerated Special Instructions: You may shower starting on 11/21/17, but don't immerse the incisions for 2 weeks. You may leave the incisions open to air but leave the steristrips in place until they fall off on their own. Call my office at [phone] (or my nurse, Heike, at [phone]) to schedule a follow up appointment after your PET/CT is completed. AUDIE MONAE MD Nov 19, 2017 11:34
--- NOTE | 2017-11-19 11:41 | Post Operative Progress Note ---
Post Operative Progress Note Date: Nov 19, 2017 Time: 11:36 Surgeon: Akiko Dictation number: [id number] Anesthesia: GETA by Dr. Farris Pre-Op Diagnosis: Colon cancer Post-Op Diagnosis: YOVANI Findings: None Procedure(s): Right IJ Power Port placement Specimen Removed:(May be N/A): None Complications: None Fluids: See anesthesia record Estimated Blood Loss: Minimal Date OP Note Dictated: Nov 19, 2017 Time OP Note Dictated: 11:37 AUDIE MONAE MD Nov 19, 2017 11:41
--- NOTE | 2017-11-19 12:31 | OPERATIVE REPORT 1 ---
EVENT DATE: November 19, 2017 SURGEON: Pasquale Wharton M.D. ANESTHESIOLOGIST: Nicolas Farris MD ANESTHESIA: General endotracheal. PREOPERATIVE DIAGNOSIS Colon cancer. POSTOPERATIVE DIAGNOSIS Colon cancer. PROCEDURE PERFORMED Right internal jugular (IJ) PowerPort placement. COMPLICATIONS None. CONDITION Stable. ESTIMATED BLOOD LOSS Minimal. INDICATIONS This is a 41-year-old gentleman who was recently admitted to the hospital with a colon obstruction due to colon cancer and underwent an urgent sigmoid colectomy with a colostomy. Pathology revealed that 19 out of 21 lymph nodes on the mesentery had cancer in them and the lesion was a T4 lesion extending into the pericolonic tissues. He has seen oncology and they are planning on starting on chemotherapy and they requested a chemotherapy port to facilitate this. DESCRIPTION OF PROCEDURE The patient was brought into the operating room and placed supine on the operating table. General endotracheal anesthesia was administered and his right neck and chest were prepped and draped in the sterile fashion. Time-out was completed. With him in Trendelenburg, I used ultrasound to identify the right internal jugular vein and then used the access needle to access the vein. I threaded the wire through the needle and removed the needle and used the C-arm fluoroscope to position the wire in the SVC just above the right atrium. I then anesthetized the skin the neck as well as the right infraclavicular skin and made a stab incision in the skin where the wire entered the skin and then made a transverse incision in the infraclavicular anesthetized skin. I dissected through the dermis and into the subcutaneous fat and created a subcutaneous pocket caudad to the incision. I made sure the pocket was hemostatic and there was no bleeding. I then used the tunneler and dragged the catheter from the pocket up to the stab incision in the neck and then threaded the dilator and sheath over the wire and used the C-arm fluoroscope to ensure the dilator and sheath were in the SVC and once this was confirmed removed the dilator and wire and threaded the catheter through the sheath and removed the sheath. I then used the C-arm fluoroscope to position the tip of the catheter in the SVC just above the right atrium and then cut the catheter to length and placed the port on the catheter and locked into place with a locking cup. I then placed the port in a pocket and sewed it down to the underlying fascia with 2-0 Nylon at the corners. I then took more C-arm images to ensure it was in good position with no kinks or twists and it looked good. I then aspirated blood through the port and initially it did not want to aspirate but I flushed it with saline and then I was able to aspirate blood rather easily and flushed it with saline with no problems. I then flushed it with 5 mL of heparinated saline, 100 units per cc, for a total of 500 units of heparin. It flushed without any problems. I then closed the stab incision in the neck with a single 3-0 chromic suture and then the skin at the port pocket site was closed with interrupted 3-0 Vicryl deep dermal sutures and 4-0 Monocryl running subcuticular sutures. The skin was cleaned, dried and steri-strips were applied over each incision. The patient was then awakened and extubated in the operating room and transported to the recovery room in stable condition, having tolerated the procedure without any apparent problems. TUCKER
[2017-11-19 12:32] VITALS: BP 119/81
[2017-11-19 13:01] VITALS: BP 123/88
--- NOTE | 2017-11-19 13:22 | RADIOLOGY IMAGING REPORT ---
[place] [facility] [place] NAME: Boris Salazar : 1975 MR: [id number] V: [id number] EXAM DATE: ORDERING PHYSICIAN: AUIDE MONAE TECHNOLOGIST: Location: [facility] Patient: Boris Salazar : 1975 Visit/Account:[id number] Date of Sevice: 11/19/2017 Exam type: C-ARM FLUORO PORT/CATH History: CHEMO PORT PLACEMENT Comparison: None. Findings: Three portable intraoperative fluoroscopic spot views of the upper thorax demonstrate placement of a right IJ port with distal tip projecting over the superior vena cava. Incidentally noted is an endot lam tube. The total continuous fluoroscopy dose was [id number] mGray per meter squared IMPRESSION: 1. As above Report Dictated By: Yoly Reeves MD at 11/19/2017 1:17 PM Report E-Signed By: Yoly Reeves MD at 11/19/2017 1:19 PM WSN:[email or web address]
--- NOTE | 2017-11-19 13:24 | RADIOLOGY IMAGING REPORT ---
FACILITY: [facility] PATIENT NAME: Boris Salazar : 1975 MR: [id number] V: [id number] EXAM DATE: ORDERING PHYSICIAN: AUDIE MONAE TECHNOLOGIST: Location: Patient: Boris Salazar : 1975 Visit/Account:[id number] Date of Sevice: 11/19/2017 Exam type: CHEST SINGLE AP History: Right IJ Power Port placement Comparison: October 26, 2017. Findings: There is an implanted right IJ port with the distal tip projecting over the expected location of the superior vena cava. No pneumothorax is seen. There is a small amount linear scarring versus atelect asis in the lung bases. No evidence of focal infiltrates or pleural effusions. The cardiac silhouet te is normal in size IMPRESSION: 1. Small amount of scarring versus atelectasis in the lung bases Right IJ port appears to be in good position as described above Report Dictated By: Yoly Reeves MD at 11/19/2017 1:19 PM Report E-Signed By: Yoly Reeves MD at 11/19/2017 1:20 PM WSN:[email or web address]
[2017-11-19 13:33] VITALS: BP 128/90
[2017-11-19 13:35] VITALS: BP 127/93
[2017-11-19] MEDS ORDERED: ALBUTEROL/IPRATROPIUM 3 ML NEB NEB ONE ×2 (13:45→13:55)
[2017-11-19] MEDS ORDERED: ALBUTEROL/IPRATROPIUM 3 ML NEB ONE (13:54)
== END 2017-11-19 12:35 | disposition home or self-care (01) ==
LOC: OR 00:20
PROVIDERS: ATTEND Surgery
DX: C18.9 Malignant neoplasm of colon, unspecified (principal); C77.2 Secondary and unspecified malignant neoplasm of intra-abdominal lymph nodes; E11.9 Type 2 diabetes mellitus without complications; I10 Essential (primary) hypertension; G47.33 Obstructive sleep apnea (adult) (pediatric); Z79.899 Other long term (current) drug therapy
CPT/HCPCS: 36415; 36416; 36561; 71045; 77001; 82948; 85730; 94640; C1788; J1100; J1642; J2001; J2405; J2704; J2795; J3010; J7620; J0690

== ENCOUNTER 2018-01-07 08:58 | Emergency (ER) | payer BC ==
[2017-10-27 10:43] VITALS: Wt 113.5 kg
[~2018-01-07 08:58] MED LIST changes: +OXYC-854 PO
--- NOTE | 2018-01-07 09:03 | ER Report ---
History and Physical Time Seen By MD: 09:03 HPI/ROS CHIEF COMPLAINT: Left-sided abdominal pain in the setting of colon cancer status post ostomy placement. HISTORY OF PRESENT ILLNESS: Patient is a 42-year-old male here with complaints of left-sided abdominal pain after coughing with a recent history of upper respiratory infection. Patient reports starting with pain last night and was concerned when he noticed red material in his bag which he partially attributes to red colored lemonade packets that he had been drinking. Patient is hemodyn amically stable, afebrile, non-peritoneal on initial examination. REVIEW OF SYSTEMS: Constitutional: No fever, no chills. Eyes: No discharge. ENT: No sore throat. Cardiovascular: No chest pain, no palpitations. Respiratory: No cough, no shortness of breath. Gastrointestinal: + left sided abdominal pain, + red material in ostomy bag Genitourinary: No hematuria. Musculoskeletal: No back pain. Skin: No rashes. Neurological: No headache. Allergies: Coded Allergies: No Known Allergies (Verified Allergy, Mild, 01/07/18) Home Meds Reported Medications Amlodipine Besylate/Benazepril (AMLODIPINE-BENAZEPRIL 10-40 MG) 1 Each Capsule, 1 EACH PO QDAY, CAPSULE 10/30/17 Metoprolol Succinate (METOPROLOL SUCCINATE) 50 Mg Tab.er.24h, 2 TAB PO QDAY, TAB 10/26/17 Pioglitazone Hcl (PIOGLITAZONE HCL) 45 Mg Tablet, 45 MG PO QDAY 10/26/17 Discontinued Scripts Docusate Sodium (COLACE) 100 Mg Capsule, 100 MG PO BID for constipation prevention for 30 Days, #60 CAPSULE 2 Refills Prov:MIKE ARMANDO MD 11/02/17 Polyethylene Glycol 3350 (MIRALAX) 17 Gm Powd.pack, 17 GM PO BID for 30 Days, #60 PKT Prov:MIKE ARMANDO MD 11/02/17 Hx Smoking: No (SMOKED 1/2 PPD FOR ALMOST 20 YRS) Smoking Status: Former Smoker Exposure to Second Hand Smoke?: No Hx Substance Use Disorder: No Hx Alcohol Use: Yes Constitutional Vital Sign - Last 24 Hours 01/07/18 09:06 Temp 98.2 Pulse 73 Resp 16 B/P (MAP) 148/98 Pulse Ox 94 Physical Exam General Appearance: The patient is alert, has no immediate need for airway protection and no signs of toxicity. NAD Eyes: Pupils equal and round no pallor or injection. ENT, Mouth: Mucous membranes are moist. Respiratory: There are no retractions, lungs are clear to auscultation. Cardiovascular: Regular rate and rhythm. Gastrointestinal: Abdomen is soft and + moderately tender on palpation of left abdomen, no masses, bowel sounds normal. Neurological: No focal neuro deficits Skin: Warm and dry, no rashes. Musculoskeletal: Neck is supple non tender. Extremities are nontender, nonswollen and have full range of motion. DIFFERENTIAL DIAGNOSIS: After history and physical exam differential diagnosis was considered for abdominal pain including but not limited to appendicitis, cholecystitis, gastritis and urinary tract infection, pneumothorax Medical Decision Making Data Points Result Diagram: 01/07/1841 01/07/1841 Laboratory Hematology Test 01/07/18 09:27 01/07/18 09:41 Stool Occult Blood (IFOB) Positive (NEGATIVE) Red Blood Count 5.18 M/uL (4.00-5.60) Mean Corpuscular Volume 82.6 fL (80.0-96.0) Mean Corpuscular Hemoglobin 28.1 pg (26.0-33.0) Mean Corpuscular Hemoglobin Concent 34.0 g/dL (32.0-36.0) Red Cell Distribution Width 16.4 % (11.5-14.5) Mean Platelet Volume 7.4 fL (7.2-11.1) Neutrophils (%) (Auto) 45.6 % (39.4-72.5) Lymphocytes (%) (Auto) 34.4 % (17.6-49.6) Monocytes (%) (Auto) 18.0 % (4.1-12.4) Eosinophils (%) (Auto) 0.9 % (0.4-6.7) Basophils (%) (Auto) 1.1 % (0.3-1.4) Nucleated RBC Relative Count (auto) 0.0 /100WBC Neutrophils # (Auto) 0.9 K/uL (2.0-7.4) Lymphocytes # (Auto) 0.6 K/uL (1.3-3.6) Monocytes # (Auto) 0.3 K/uL (0.3-1.0) Eosinophils # (Auto) 0.0 K/uL (0.0-0.5) Basophils # (Auto) 0.0 K/uL (0.0-0.1) Nucleated RBC Absolute Count (auto) 0.00 K/uL Peripheral Blood Smear Yes Y/N Sodium Level 136 mmol/L (137-145) Potassium Level 4.4 mmol/L (3.5-5.0) Chloride Level 100 mmol/L (98-107) Carbon Dioxide Level 28 mmol/L (22-30) Blood Urea Nitrogen 23 mg/dl (9-21) Creatinine 0.80 mg/dl (0.66-1.25) Glomerular Filtration Rate Calc > 60.0 Random Glucose 280 mg/dl (75-110) Calcium Level 8.7 mg/dl (8.4-10.2) Total Bilirubin 0.6 mg/dl (0.2-1.3) Aspartate Amino Transf (AST/SGOT) 19 U/L (0-35) Alanine Aminotransferase (ALT/SGPT) 33 U/L (0-56) Alkaline Phosphatase 67 U/L (0-126) Total Protein 7.1 g/dl (6.3-8.2) Albumin 3.8 g/dl (3.5-5.0) Lipase 84 U/L (23-300) Chemistry Test 01/07/18 09:27 01/07/18 09:41 Stool Occult Blood (IFOB) Positive (NEGATIVE) White Blood Count 1.9 k/uL (4.5-11.0) Red Blood Count 5.18 M/uL (4.00-5.60) Hemoglobin 14.5 g/dL (14.0-18.0) Hematocrit 42.8 % (42.0-52.0) Mean Corpuscular Volume 82.6 fL (80.0-96.0) Mean Corpuscular Hemoglobin 28.1 pg (26.0-33.0) Mean Corpuscular Hemoglobin Concent 34.0 g/dL (32.0-36.0) Red Cell Distribution Width 16.4 % (11.5-14.5) Platelet Count 246 K/uL (150-450) Mean Platelet Volume 7.4 fL (7.2-11.1) Neutrophils (%) (Auto) 45.6 % (39.4-72.5) Lymphocytes (%) (Auto) 34.4 % (17.6-49.6) Monocytes (%) (Auto) 18.0 % (4.1-12.4) Eosinophils (%) (Auto) 0.9 % (0.4-6.7) Basophils (%) (Auto) 1.1 % (0.3-1.4) Nucleated RBC Relative Count (auto) 0.0 /100WBC Neutrophils # (Auto) 0.9 K/uL (2.0-7.4) Lymphocytes # (Auto) 0.6 K/uL (1.3-3.6) Monocytes # (Auto) 0.3 K/uL (0.3-1.0) Eosinophils # (Auto) 0.0 K/uL (0.0-0.5) Basophils # (Auto) 0.0 K/uL (0.0-0.1) Nucleated RBC Absolute Count (auto) 0.00 K/uL Peripheral Blood Smear Yes Y/N Glomerular Filtration Rate Calc > 60.0 Calcium Level 8.7 mg/dl (8.4-10.2) Total Bilirubin 0.6 mg/dl (0.2-1.3) Aspartate Amino Transf (AST/SGOT) 19 U/L (0-35) Alanine Aminotransferase (ALT/SGPT) 33 U/L (0-56) Alkaline Phosphatase 67 U/L (0-126) Total Protein 7.1 g/dl (6.3-8.2) Albumin 3.8 g/dl (3.5-5.0) Lipase 84 U/L (23-300) EKG/Imaging Imaging Location: [facility] [place] Patient: Boris Salazar : 1975 Visit/Account:[id number] Date of Sevice: 01/07/2018 ACUTE ABDOMEN SERIES 3 VIEW HISTORY: ABD PAIN COMPARISON: CT examination of the chest October 26, 2017 FINDINGS: The heart is within normal limits. Port overlies the right chest, tip midportion superior vena cava. Minimal linear atelectasis/scarring is seen in the left lung base. No free air. Nonspecific but nonobstructive bowel pattern with air seen in nondilated loops of small and large intestine. No pneumatosis. Ostomy is seen over the left hemiabdomen. IMPRESSION: Nonobstructive bowel pattern without radiographic evidence of acute pathology ED Course/Re-evaluation ED Course Patient is a 42-year-old male here with complaints of red material in the ostomy bag found to be Hemoccult positive, left-sided abdominal pain after coughing secondary to a recent upper respiratory infection. Pain started last night. Patient was found to have an absolute neutrophil count of 822 and a white blood cell count of 1.9 however the patient is afebrile and denies fevers. Hemoglobin and hematocrit were found to be stable. Patient was advised to follow up closely for repeat lab draws to trend his hemoglobin and hematocrit, white blood cell counts, electrolytes. Patient was well-appearing throughout ED course. X-ray imaging was completed to rule out intrathoracic pathology, free air, bowel obstructions. X-ray imaging showed no acute findings. Patient was stable at time of discharge and in no acute distress. Decision to Disposition Date: Jan 07, 2018 Decision to Disposition Time: 11:09 Depart Departure Latest Vital Signs Vital Signs Date Time Temp Pulse Resp B/P (MAP) Pulse Ox O2 Delivery O2 Flow Rate FiO2 01/07/18 09:06 98.2 73 16 148/98 94 Impression: Primary Impression: Abdominal pain Additional Impression: GI bleed Condition: Improved Disposition: HOME OR SELF-CARE Referrals: AUDIE MONAE MD (PCP) Patient Instructions: Abdominal Pain (ED) Additional Instructions: Please drink plenty of water. Your white blood cell count was found to be low at 1.9 and your absolute neutrophil count was calculated as being 855. Your hemoglobin and hematocrit were found to be stable today in spite of finding microscopic blood in your ostomy bag. You will need to have your blood counts trended in the next week in order to evaluate for possible blood loss. Please return immediately if he develops fevers, lightheadedness, dizziness, shortness of breath, worsening abdominal pain, inability to hold down food or fluids, syncopal episodes. Problem Qualifiers RUBINA SCHULTE DO Jan 07, 2018 09:03
[2018-01-07 09:06] VITALS: BP 148/98
[2018-01-07 09:50] LABS: PLATELET COUNT, AUTOMATED 246 K/uL (150-450)
--- NOTE | 2018-01-07 10:49 | RADIOLOGY IMAGING REPORT ---
FACILITY: [facility] [place] PATIENT NAME: Boris Salazar : 1975 MR: [id number] V: [id number] EXAM DATE: ORDERING PHYSICIAN: RUBINA SCHULTE TECHNOLOGIST: Location: [facility] Patient: Boris Salazar : 1975 Visit/Account:[id number] Date of Sevice: 01/07/2018 ACUTE ABDOMEN SERIES 3 VIEW HISTORY: ABD PAIN COMPARISON: CT examination of the chest October 26, 2017 FINDINGS: The heart is within normal limits. Port overlies the right chest, tip midportion superior vena cava. Minimal linear atelectasis/scarring is seen in the left lung base. No free air. Nonspecific but nonobstructive bowel pattern with air seen in nondilated loops of small and large int estine. No pneumatosis. Ostomy is seen over the left hemiabdomen. IMPRESSION: Nonobstructive bowel pattern without radiographic evidence of acute pathology Report Dictated By: Allen Burger MD at 01/07/2018 10:44 AM Report E-Signed By: Allen Burger MD at 01/07/2018 10:45 AM WSN:[id number]
== END 2018-01-07 11:18 | disposition home or self-care (01) ==
LOC: ER 09:14
DX: R10.9 Unspecified abdominal pain (principal); K92.2 Gastrointestinal hemorrhage, unspecified; Z93.3 Colostomy status
CPT/HCPCS: 74022; 82040; 82247; 82274; 82310; 82374; 82435; 82565; 82947; 83690; 84075; 84132; 84155; 84295; 84450; 84460; 84520; 85025; 99283

== ENCOUNTER 2018-02-16 13:45 | Outpatient (RCR) | payer BC ==
[2017-10-27 10:43] VITALS: BMI 35.0
--- NOTE | 2018-01-05 13:00 | PT INITIAL EVALUATION ---
MEDICAL DIAGNOSIS: Colon Cancer TREATMENT DIAGNOSIS: Colon Cancer DATE OF ONSET: 12/08/17 SUBJECTIVE: Pt is a 42 year old male presenting to physical therapy following recent diagnosis of colon cancer with oncological intervention. Pt is currently on cycle 3 of 8 rounds of FOLFOX chemotherapy. Following chemo pt is likely to receive surgical intervention. At this time pt has no physical complaints or side-effects of cancer or treatment other than fatigue and cold intolerance neuropathy following chemo sessions temporarily. Pt is working at the [employer] department at this time without restrictions. Pt is relatively sedentary in ADL's but remains at full activity with hobbies including playing video games, and reading. Pt is accompanied by his for oncology rehab education and assessment. REHAB PROBLEM LIST: Increased Pain Decreased Endurance Decreased Function PREVIOUS MEDICAL HISTORY: See EMR OBJECTIVE: Posture: Pt demonstrates slight B ER of hips when standing. ROM: Within functional limits. Strength: MMT B LE: 5/5 all LE major motions. 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 Mobility: ECOG Performance status: grade 1 Other Objective Findings: FACT-G: PWB: , SWB: , EWB: , FWB: , Total: 105/108 ASSESSMENT: Pt presents with signs and symptoms consistent with the diagnosis and treatment of colon cancer. Physical therapy is indicated for preventative and maintenance of physical condition for ADL's as impaired by the above listed deficits. Short Term Goals In 2 MO pt will maintain ECOG performance status of grade 2 or less for mobility and function with ADL's. In 4 MO pt will maintain FACT-G score of >85 for maintenance of functional status with ADL's. In 4 MO pt will maintain strength of 5/5 with all general LE movements for functional mobility with ADL's. Patient's Goals Maintain function with ongoing oncological treatment. PLAN: Patient to be seen for Manual Therapy/STM/MET Strengthening/condition Ice/Heat Range of Motion Spinal Stabilization Ultrasound Stretching Iontophoresis Neuromuscular Re-ed Closed Chain Program Electrical Stim Posture/Body mechanics Gait Trg/Balance Trg Biofeedback [facility]Manual Traction Therapeutic Activities Pelvic Floor 1x/MO for 4 Months If you have any questions, comments, or concerns about this report or plan, please contact me at . Thank you, Minerva Patel, PT, DPT, CLT MTDD
--- NOTE | 2018-04-01 07:42 | PT PLAN OF CARE ---
Physician: Goldy Finn MD Patient is being seen: 1x/MO Therapist: Minerva Patel, PT, DPT, CLT Medical Diagnosis: Colon Cancer Treatment Diagnosis: Colon Cancer Date of Onset: 12/08/17 Date of Initial Evaluation: 01/05/18 Date patient was last seen: 03/30/18 Number of treatments: 3 Number of cancellations/No shows: 0 INTERVENTIONS: Manual Therapy/STM/MET Strengthening/condition Ice/Heat Range of Motion Spinal Stabilization Ultrasound Stretching Iontophoresis Neuromuscular Re-ed Closed Chain Program Electrical Stim Posture/Body mechanics Gait Trg/Balance Trg Biofeedback Home Exercise Program Mech./Manual Traction Therapeutic Activities Pelvic Floor GOALS: In 2 MO pt will maintain ECOG performance status of grade 2 or less for mobility and function with ADL's. MET In 4 MO pt will maintain FACT-G score of >85 for maintenance of functional status with ADL's. MET In 4 MO pt will maintain strength of 5/5 with all general LE movements for functional mobility with ADL's. MET PATIENT'S GOAL: Maintain function with ongoing oncological treatment. Status of Patient's Goals: MET Patient Compliance: Good Prognosis: Good Reasons for discharge from therapy: Boris is to discharge from physical therapy at this time secondary to pt preference. At the time of discharge pt reported full return to work without restrictions. Pt reported lingering neuropathy, however demonstrated compliance with HEP to reduce effects and maintain nerve and muscular function. Pt is to seek further PT if any new deficits arise at a later time. Posture: Pt demonstrates slight B ER of hips when standing. ROM: Within functional limits. Strength: MMT B LE: 5/5 all LE major motions. 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 Mobility: ECOG Performance status: grade 1 Other Objective Findings: FACT-G (EVAL): PWB: , SWB: , EWB: , FWB: , Total: 105/108 FACT-G (EVAL): PWB: , SWB: , EWB: , FWB: , Total: 106/108 If you have any questions, comments, or concerns about this report or plan, please contact me at . Thank you, Minerva Patel, PT, DPT, CLT MTDD
== END 2018-02-16 18:00 | disposition home or self-care (01) ==
LOC: PT 13:45
PROVIDERS: ATTEND Internal Medicine Hematology
DX: C18.9 Malignant neoplasm of colon, unspecified (principal); R53.83 Other fatigue; R09.89 Other specified symptoms and signs involving the circulatory and respiratory systems; R20.8 Other disturbances of skin sensation
CPT/HCPCS: 97161

== ENCOUNTER → 2018-02-18 | Outpatient (RCR) | payer BC ==
[2017-10-27 10:43] VITALS: Ht 177.8 cm; Wt 111.6 kg
--- NOTE | 2017-11-25 09:08 | Hospitalist Depart ---
Discharge Summary Reason for Hosp/Final Diag: (1) Large bowel obstruction Status: Acute Hospital Course & Plan: Patient was admitted to the surgical service with an obstructing colon cancer. He was taken to the OR for flexible sigmoidoscopy with biopsy which confirmed a diagnosis of colon adenocarcinoma in the sigmoid colon. He underwent staging work up which was negative. He was then taken to the operating room for sigmoid colectomy and end colostomy. The procedure was uncomplicated. The patient had an uncomplicated post operative course. On the day of discharge, he was tolerating a regular diet, ambulating independently, caring for his ostomy which was functional, and pain was controlled with oral medications. 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 Departure Weight (Pounds): 236 Weight (Ounces): 5.0 Condition: Improved Discharge: Home Home Health RN Follow Up For: Wound Care Discharge Code Status: Full Code Time Spent: < 30 min Discharge Instructions Home Meds Active Scripts Oxycodone Hcl/Acet 5/325 Mg (ENDOCET 5-325 TABLET) 1 Each Tablet, 1 TAB PO Q4H PRN for PAIN, #20 TAB 0 Refills Prov:AUDIE MONAE MD 11/19/17 Docusate Sodium (COLACE) 100 Mg Capsule, 100 MG PO BID for constipation prevention for 30 Days, #60 CAPSULE 2 Refills Prov:MIKE ARMANDO MD 11/02/17 Polyethylene Glycol 3350 (MIRALAX) 17 Gm Powd.pack, 17 GM PO BID for 30 Days, #60 PKT Prov:MIKE ARMANDO MD 11/02/17 Gabapentin (GABAPENTIN) 300 Mg Capsule, 300 MG PO TID for PAIN for 30 Days, #90 CAPSULE 2 Refills May wean off once not taking oral narcotics Prov:MIKE ARMANDO MD 11/02/17 Acetaminophen (ACETAMINOPHEN) 500 Mg Tablet, 1000 MG PO Q8H for PAIN MDD 3000 mg for 14 Days, CAP Take to limit narcotic use. May stop once off all other pain medications Prov:MIKE ARMANDO MD 11/02/17 Reported Medications Amlodipine Besylate/Benazepril (AMLODIPINE-BENAZEPRIL 10-40 MG) 1 Each Capsule, 1 EACH PO QDAY, CAPSULE 10/30/17 Metoprolol Succinate (METOPROLOL SUCCINATE) 50 Mg Tab.er.24h, 2 TAB PO QDAY, TAB 10/26/17 Pioglitazone Hcl (PIOGLITAZONE HCL) 45 Mg Tablet, 45 MG PO QDAY 10/26/17 Discontinued Scripts Enoxaparin Sodium (LOVENOX) 40 Mg/0.4 Ml Disp.syrin, 40 MG SC Q24H for Clot prevention for 14 Days, #14 MG 1 Refill Prov:MIKE ARMANDO MD 11/02/17 Diet: Regular Activity: As Tolerated Special Instructions: No heavy lifting of anything greater than 20lb. Venous Thromboembolism VTE Risk Physician Assess for VTE Risk: Yes Patient's VTE Risk: High Antithrombotics Is Pt On Any Antithrombotics?: Yes JOAN KENNY MD Nov 25, 2017 09:08
--- NOTE | 2017-11-27 19:27 | ONCOLOGY CONSULTATION ---
EVENT DATE: November 26, 2017 CHIEF COMPLAINT/REASON FOR VISIT Mr. Salazar is a pleasant, 41-year-old gentleman with stage IIIC adenocarcinoma of the sigmoid colon with 19 of 21 lymph nodes being positive (T3N2M0), high grade. Signet ring cells noted. HISTORY OF PRESENT ILLNESS Mr. Salazar presents. He has locally advanced colon cancer with 19 of 21 lymph nodes positive. This is an aggressive signet ring adenocarcinoma. He has had appropriate staging imaging, and fortunately, there is no obvious metastatic disease. He has subcentimeter nodules present in the lungs which may be metastatic disease. Overall, the patient feels well. He denies any respiratory symptoms. He is recovering from surgery and has an ostomy. There is no erythema or pain with this. No fevers, chills, current signs of infection. PAST MEDICAL HISTORY Unremarkable other than hypertension and the newly diagnosed colon cancer. FAMILY HISTORY He has a colon cancer in an elderly aunt around age 80. Otherwise, no major issues with cancer in the family. SOCIAL HISTORY The patient is , presented with his today. He has two children. REVIEW OF SYSTEMS CONSTITUTIONAL: No fevers, chills, significant weight change currently. HEENT: No headache or vision changes. CARDIOVASCULAR: No chest pain, dyspnea on exertion, or edema. RESPIRATORY: No history of shortness of breath, wheeze, cough. GASTROINTESTINAL: See above. He has an ostomy now. No bleeding. ENDOCRINE: No heat or cold intolerance. PSYCHIATRIC: No anxiety or depression. SKIN: No concerning rashes or lesions. Remainder of 14-point review of systems otherwise negative. PHYSICAL EXAMINATION GENERAL: Stable condition, resting comfortably in the chair. ECOG performance status of 1. HEENT: Normocephalic, atraumatic. CARDIOVASCULAR: Regular rate and rhythm. LUNGS: Clear. ABDOMEN: Soft. Ostomy present. No masses or tenderness appreciated. No erythema. EXTREMITIES: No clubbing, cyanosis, or edema. PSYCHIATRIC: Normal mood and affect. No history of depression or anxiety. SKIN: No concerning lesions. Remainder of physical exam otherwise unremarkable. IMPRESSION/REPORT/PLAN Mr. Salazar is a very pleasant gentleman with the following: Currently stage IIIC colon cancer. I am concerned about the potential for metastatic disease, and I agree with the pursuit of a PET scan if able. However, the areas of concern seen on CT are subcentimeter, and these may not be visualized on the PET scan either. We discussed how we plan to move forward with treatment with standard adjuvant FOLFOX. We discussed now the addition of Avastin would be used if we see metastatic disease. I would like to get imaging after three cycles instead of waiting a full six cycles to see how his lung disease is doing. We may at that time determine he does, in fact, have stage IV disease. I discussed these issues in great detail, and I am hopeful that this was caught in the stage IIIC setting. I answered all their many questions today. BILLING New patient level 5. Total time 60 minutes, counseling time 40. MTDD
[2017-12-08 12:28] VITALS: BP 146/93
[2017-12-08] MEDS: LIDOCAINE/SOD BICARB 8.4% SYR ID PRN (12:47)
[2017-12-08] MEDS: NS(*) 0.9% 500 ML BAG 500 ML IV PRN (12:47)
[2017-12-08] MEDS: HEPARIN FLSH (PORT) 500 UN/5ML IVP PRN (12:48)
[2017-12-08 12:51] LABS: PLATELET COUNT, AUTOMATED 301 K/uL (150-450)
[2017-12-08] MEDS: PALONOSETRON 0.25 MG/5 ML VIAL IVP PRN (13:47)
[2017-12-08] MEDS: DEXAMETHASONE SOD(*) 10MG/ML 10 MG in NS(*) 0.9% 50 ML BAG 50 ML IVP PRN (13:48)
[2017-12-08] MEDS: DEXTROSE 5%(*) 100 ML BAG 100 ML IVPB PRN (14:15)
[2017-12-08] MEDS: LEUCOVORIN CALCIUM IV PRN (14:18)
[2017-12-08] MEDS: [UNRECOGNIZED DRUG - OTHER] IV PRN (14:18)
[2017-12-08] MEDS: LEUCOVORIN CAL IV PRN (14:18)
[2017-12-08] MEDS: D5W IVPB PRN (14:20)
[2017-12-08] MEDS: OXALIPLATIN IVPB PRN (14:20)
[2017-12-08] MEDS: FLUOROURACIL 50 MG/ML SDV IV PRN (16:26)
[2017-12-08] MEDS: NS 0.9% IV PRN (16:28)
[2017-12-08] MEDS: FLUOROURACIL IV PRN (16:28)
[2017-12-08 16:48] VITALS: BP 161/98
[2017-12-10 14:58] VITALS: BP 131/87
[2017-12-15 16:30] LABS: PLATELET COUNT, AUTOMATED 326 K/uL (150-450)
[2017-12-22 11:36] VITALS: BP 141/88
[2017-12-22] MEDS: LIDOCAINE/SOD BICARB 8.4% SYR ID PRN (12:25)
[2017-12-22] MEDS: DEXTROSE 5%(*) 100 ML BAG 100 ML IVPB PRN (12:26)
[2017-12-22] MEDS: DEXAMETHASONE SOD(*) 10MG/ML 10 MG in NS(*) 0.9% 50 ML BAG 50 ML IVP PRN (12:26)
[2017-12-22] MEDS: PALONOSETRON 0.25 MG/5 ML VIAL IVP PRN (12:26)
[2017-12-22] MEDS: NS(*) 0.9% 500 ML BAG 500 ML IV PRN (12:26)
[2017-12-22] MEDS: D5W IVPB PRN (12:55)
[2017-12-22] MEDS: OXALIPLATIN IVPB PRN (12:55)
[2017-12-22] MEDS: [UNRECOGNIZED DRUG - OTHER] IV PRN (12:56)
[2017-12-22] MEDS: LEUCOVORIN CAL IV PRN (12:56)
[2017-12-22] MEDS: LEUCOVORIN CALCIUM IV PRN (12:56)
[2017-12-22] MEDS: FLUOROURACIL 50 MG/ML SDV IV PRN (15:10)
[2017-12-22] MEDS: FLUOROURACIL IV PRN (15:12)
[2017-12-22] MEDS: NS 0.9% IV PRN (15:12)
[2017-12-24] MEDS: HEPARIN FLSH (PORT) 500 UN/5ML IVP PRN (13:06)
[2017-12-25 13:07] VITALS: BP 112/85
--- NOTE | 2017-12-25 22:50 | ONCOLOGY FOLLOW UP NOTE ---
EVENT DATE: December 25, 2017 CHIEF COMPLAINT "My port looks different." HISTORY OF PRESENT ILLNESS Patient is a 41-year-old male who was seen as a work-in today. He has now completed two cycles of FOLFOX and has tolerated them without issue. He does have the expected cold intolerance which lasts for several days, but then resolves. He denies any numbness or tingling. Bowels are working well, and he is managing his ostomy without issue. He presents with recently noted change in color to the insertion site of the Port-A-Cath. The area is raised, somewhat bruised-appearing, but no surrounding warmth or erythema. He has had no fevers. ONCOLOGY HISTORY Patient presented in September 2017 with a two-month history of abdominal pain and constipation alternating with diarrhea. He was found to have a large bowel obstruction. He underwent partial colectomy with ostomy placement on 10/28/17. This revealed a stage IIIC adenocarcinoma of the sigmoid colon with 19 of 21 lymph nodes positive (T3 N2 M0), high grade with signet ring cells noted. He began FOLFOX on 12/08/17. MEDICAL HISTORY 1. Colon cancer, September 2017. 2. Type 2 diabetes. 3. Hypertension. SURGICAL HISTORY Partial colectomy with ostomy placement 10/28/17. FAMILY HISTORY Colon cancer in an elderly aunt at age 80. No other cancer noted in the family. SOCIAL HISTORY Patient is . They have two children. He works for [employer]. He is now a nonsmoker. MEDICATIONS 1. Amlodipine/benazepril. 2. Pioglitazone. 3. Metoprolol. ALLERGIES No known drug allergies. REVIEW OF SYSTEMS A 12-point review of systems is performed and is negative except as stated above. PHYSICAL EXAMINATION VITAL SIGNS: BP 112/85, P 85, R 16, temp 98.4, O2 sat 96%. GENERAL: Patient is a well-developed, well-nourished male in no acute distress. HEAD: Atraumatic, normocephalic. EYES: Sclerae anicteric. MOUTH: Moist mucous membranes. LUNGS: Clear bilaterally. CARDIOVASCULAR: Heart rate regular, 85 per minute without murmur, S3, or S4. EXTREMITIES: No edema. SKIN: The insertion site of the Port-A-Cath is slightly bruised and appears somewhat irritated, but no signs of erythema or acute infection. LABORATORIES CBC on 12/22/17 showed a WBC of 6.7, hemoglobin 14.6, hematocrit 42.8, platelets 225,000. Of note, his random glucose was 473. Baseline CEA on 12/08/17 was 7.4. IMPRESSION AND PLAN The patient is a 41-year-old male with stage IIIC adenocarcinoma of the colon. He began FOLFOX on 12/08/17. 1. Colon cancer. Patient has now completed two cycles of FOLFOX. He will begin cycle #3 on 01/05/18. He is tolerating his treatment without issue. 2. Port-A-Cath. Insertion site of Port-A-Cath appears slightly bruised and somewhat irritated, but no signs of acute infection. I have instructed him to present if he notes any increase in erythema, edema, or discharge. He will monitor this. He will be seen next week for lab. 3. Hyperglycemia. Random glucose on 12/22/17 was 473. We discussed that healing occurs better if glucoses are under better control. He states understanding. 4. Follow up as scheduled for continued care. He will see Dr. Carreon on 01/04/18. TUCKER
[2017-12-29 16:51] LABS: PLATELET COUNT, AUTOMATED 251 K/uL (150-450)
[2018-01-04 15:42] VITALS: BP 150/95
[2018-01-05 11:54] VITALS: BP 142/89
[2018-01-05] MEDS: NS(*) 0.9% 500 ML BAG 500 ML IV PRN (12:05)
[2018-01-05] MEDS: LIDOCAINE/SOD BICARB 8.4% SYR ID PRN (12:05)
[2018-01-05] MEDS: PALONOSETRON 0.25 MG/5 ML VIAL IVP PRN (12:40)
[2018-01-05] MEDS: DEXAMETHASONE SOD(*) 10MG/ML 10 MG in NS(*) 0.9% 50 ML BAG 50 ML IVP PRN (12:40)
[2018-01-05] MEDS: DEXTROSE 5%(*) 100 ML BAG 100 ML IVPB PRN (13:10)
[2018-01-05] MEDS: LEUCOVORIN CALCIUM IV PRN (13:18)
[2018-01-05] MEDS: LEUCOVORIN CAL IV PRN (13:18)
[2018-01-05] MEDS: [UNRECOGNIZED DRUG - OTHER] IV PRN (13:18)
[2018-01-05] MEDS: OXALIPLATIN IVPB PRN (13:19)
[2018-01-05] MEDS: D5W IVPB PRN (13:19)
[2018-01-05] MEDS: FLUOROURACIL 50 MG/ML SDV IV PRN (15:38)
[2018-01-05] MEDS: FLUOROURACIL IV PRN (15:39)
[2018-01-05] MEDS: NS 0.9% IV PRN (15:39)
--- NOTE | 2018-01-05 19:32 | ONCOLOGY FOLLOW UP NOTE ---
EVENT DATE: January 04, 2018 CHIEF COMPLAINT "I'm doing okay on this chemo." HISTORY OF PRESENT ILLNESS Patient is a 41-year-old male who is seen today before beginning cycle #3 of FOLFOX. He tolerated the first two treatments well. He had no issues with nausea, although did have the expected cold intolerance. He is being careful at work to wear gloves. He has had no issues with his ostomy, including no diarrhea or constipation. He is grateful for how well he is tolerating his treatment. He denies any peripheral neuropathy. ONCOLOGY HISTORY Patient presented in September 2017 with a two-month history of abdominal pain and constipation alternating with diarrhea. He was found to have a large bowel obstruction. He underwent partial colectomy with ostomy placement on 10/28/17. This revealed a stage IIIC adenocarcinoma of the sigmoid colon with 19 of 21 lymph nodes positive (T3 N2 M0), high grade with signet ring cells noted. He began FOLFOX on 12/08/17. MEDICAL HISTORY 1. Colon cancer, September 2017. 2. Type 2 diabetes. 3. Hypertension. SURGICAL HISTORY Partial colectomy with ostomy placement 10/28/17. FAMILY HISTORY Colon cancer in an elderly aunt at age 80. Multiple breast cancers on the maternal side. No other colon, uterine, or ovarian cancer noted. SOCIAL HISTORY Patient is . They have two children. He works for [employer]. He is now a nonsmoker. MEDICATIONS 1. Amlodipine/benazepril. 2. Pioglitazone. 3. Metoprolol. ALLERGIES No known drug allergies. REVIEW OF SYSTEMS A 12-point review of systems is performed and is negative except as stated above. PHYSICAL EXAMINATION VITAL SIGNS: Weight 111.9 kg. BP 150/95, P 90, R 16, temp 97.2, O2 sat 92%. GENERAL: Patient is a well-developed, well-nourished male in no acute distress. HEAD: Atraumatic, normocephalic. EYES: Sclerae anicteric. MOUTH: Moist mucous membranes, without lesions. LUNGS: Clear bilaterally. CARDIOVASCULAR: Heart rate regular, 88 per minute without murmur, S3, or S4. EXTREMITIES: No edema. NEUROLOGIC: Nonfocal. LABORATORIES CBC, CMP, and CEA to be drawn before tomorrow's treatment. IMPRESSION AND PLAN The patient is a 41-year-old male with stage IIIC adenocarcinoma of the colon. He began FOLFOX on 12/08/17. 1. Colon cancer. Patient will complete cycle #3 of FOLFOX on 01/05/18. He is tolerating his treatment without issue. 2. Family history. We reviewed his family history. As he presented with a stage IIIC colon cancer at age 41, we discussed Osorio syndrome. Results would not change current therapy, so he will continue current treatment, and we will reinvestigate genetic counseling and testing once he has completed this. 3. Advance Directives. Patient would like a copy of the Advance Directives to complete. We reviewed the importance of the medical power of staff attorney along with the advanced directives. Our social worker assistant will review these forms tomorrow when seen for chemotherapy. 4. Diabetes. He has had issues with hyperglycemia. Random glucose on 12/22/17 was 473. He is working hard to try to control his diet. 5. Follow up in two weeks for cycle #[address] Carreon also visited with the patient today. TUCKER
[2018-01-07] MEDS: HEPARIN FLSH (PORT) 500 UN/5ML IVP PRN (14:05)
[2018-01-07 14:06] VITALS: BP 117/69
[2018-01-12 16:43] LABS: PLATELET COUNT, AUTOMATED 343 K/uL (150-450)
[2018-01-18 11:40] VITALS: BP 149/101
[2018-01-18] MEDS: DEXAMETHASONE SOD(*) 10MG/ML 10 MG in NS(*) 0.9% 50 ML BAG 50 ML IVP PRN (12:13)
[2018-01-18] MEDS: PALONOSETRON 0.25 MG/5 ML VIAL IVP PRN (12:13)
[2018-01-18] MEDS: LIDOCAINE/SOD BICARB 8.4% SYR ID PRN (12:14)
[2018-01-18] MEDS: NS(*) 0.9% 500 ML BAG 500 ML IV PRN (12:14)
[2018-01-18] MEDS: LEUCOVORIN CAL IV PRN (12:59)
[2018-01-18] MEDS: [UNRECOGNIZED DRUG - OTHER] IV PRN (12:59)
[2018-01-18] MEDS: LEUCOVORIN CALCIUM IV PRN (12:59)
[2018-01-18] MEDS: D5W IVPB PRN (13:03)
[2018-01-18] MEDS: OXALIPLATIN IVPB PRN (13:03)
[2018-01-18] MEDS: FLUOROURACIL 50 MG/ML SDV IV PRN (15:26)
[2018-01-18] MEDS: NS 0.9% IV PRN (15:27)
[2018-01-18] MEDS: FLUOROURACIL IV PRN (15:27)
--- NOTE | 2018-01-18 17:49 | Medical Nutrition Therapy ---
Nutrition Anthropometrics Height (Inches): 70.00 Height (Calculated Centimeters: 177.8000 Weight (Pounds): 244 (patient states his usual weight is between 245-250lbs) Nutritional Education Nutrition Education Topic: Other (Eating during Cancer Treatment ) Learning Readiness: Interested Teaching Methods: Discussion, Handout Response to Teaching: Verbalize understanding Teaching Recipient: Patient, Significant Other Nutrition Counseling: Reviewed handout on Eating during Cancer Treatment, discussed potential nutrition impact symptoms and encouraged patient to review information if he is experiencing any of the symptoms. Patient did not mention any issues with his colostomy. Nutrition Monitoring & Eval Nutrition Goals: Eat 90-100% Meal, Drink > 2 liters/day Nutritional Goals Comment: Maintain wt, monitor blood sugars Nutrition Follow-Up: Good Intake Nutrition Monitoring: I will provide additional nutrition information as needed RD Patient Assessment Time: [address] Assessment Type: RD Education Patient Nutrition Acuity: 3-Mild Nutritional Comment: I encouraged patient to call or let RN know if he would like to discuss any nutrition issues with me. DMITRY CHERY RDN, TERESO Jan 18, 2018 17:49
--- NOTE | 2018-01-19 04:45 | ONCOLOGY FOLLOW UP NOTE ---
EVENT DATE: January 18, 2018 CHIEF COMPLAINT Presents for cycle #4 of adjuvant FOLFOX. HISTORY OF PRESENT ILLNESS Patient is a 42-year-old male who presents for consideration of cycle #4 of adjuvant FOLFOX. Overall, he continues to tolerate his treatment well. He denies any evidence of neuropathy, although does have the expected cold intolerance. He finds that this now lasts six or seven days. He has minimal nausea and uses Zofran on a p.r.n. basis. He was noted to be hypertensive on arrival, but retake with a larger cuff showed improvement in his blood pressure. He denies any issues with diarrhea. He did have one episode of a mouth sore, but feels it was from sleeping in his dentures. This quickly resolved. ONCOLOGY HISTORY Patient presented in September 2017 with a two-month history of abdominal pain and constipation alternating with diarrhea. He was found to have a large bowel obstruction. He underwent partial colectomy with ostomy placement on 10/28/17. This revealed a stage IIIC adenocarcinoma of the sigmoid colon with 19 of 21 lymph nodes positive (T3 N2 M0), high grade with signet ring cells noted. He began FOLFOX on 12/08/17. MEDICAL HISTORY 1. Colon cancer, September 2017. 2. Type 2 diabetes. 3. Hypertension. SURGICAL HISTORY Partial colectomy with ostomy placement 10/28/17. FAMILY HISTORY Colon cancer in an elderly aunt at age 80. Multiple breast cancers on the maternal side. No other colon, uterine, or ovarian cancer noted. SOCIAL HISTORY Patient is . They have two children. He works for [employer]. He is now a nonsmoker. MEDICATIONS 1. Amlodipine/benazepril. 2. Pioglitazone. 3. Metoprolol. ALLERGIES No known drug allergies. REVIEW OF SYSTEMS A 12-point review of systems is performed and is negative except as stated above. PHYSICAL EXAMINATION VITAL SIGNS: Weight 110.7 kg. BP 149/101 (on retake, 126/90), P 76, R 16, temp 98.0, O2 sat 90%. GENERAL: Patient is a well-developed, well-nourished male in no acute distress. HEAD: Atraumatic, normocephalic. EYES: Sclerae anicteric. MOUTH: Moist mucous membranes; no lesions. NECK: Supple. No adenopathy. LUNGS: Clear bilaterally. CARDIOVASCULAR: Heart rate regular, 76 per minute, without murmur, S3, or S4. ABDOMEN: Soft, nontender, with active bowel sounds. Ostomy in place. EXTREMITIES: No edema. NEUROLOGIC: Nonfocal. LABORATORY CBC today reveals a WBC 7.6, hemoglobin 14.8, hematocrit 43.2, platelets 207,000. CMP is pending. IMPRESSION AND PLAN The patient is a 42-year-old male with stage IIIC adenocarcinoma of the colon. He began adjuvant FOLFOX on 12/08/17. 1. Colon cancer. Cycle #4 of FOLFOX today. He continues to tolerate this without issue. 2. Hypertension. Patient states he is "always hypertensive." Initial blood pressure was 149/101, but on retake with larger cuff it was 126/90. He continues on amlodipine/benazepril and metoprolol. 3. Gastrointestinal. Minimal nausea. He uses Zofran p.r.n. He is managing his ostomy without issue. 4. Follow up on 02/03/18 for cycle #5 of treatment. He will see Dr. Carreon at that time. [facility]
[2018-01-20 13:43] VITALS: BP 124/72
[2018-01-20] MEDS: HEPARIN FLSH (PORT) 500 UN/5ML IVP PRN (14:18)
[2018-01-26 16:27] LABS: PLATELET COUNT, AUTOMATED 339 K/uL (150-450)
[2018-02-02 11:52] VITALS: BP 142/97
[2018-02-02] MEDS: LIDOCAINE/SOD BICARB 8.4% SYR ID PRN (12:08)
[2018-02-02] MEDS: NS(*) 0.9% 500 ML BAG 500 ML IV PRN (12:08)
[2018-02-02] MEDS: PALONOSETRON 0.25 MG/5 ML VIAL IVP PRN (12:54)
[2018-02-02] MEDS: DEXAMETHASONE SOD(*) 10MG/ML 10 MG in NS(*) 0.9% 50 ML BAG 50 ML IVP PRN (12:55)
[2018-02-02] MEDS: DEXTROSE 5%(*) 100 ML BAG 100 ML IVPB PRN (13:29)
[2018-02-02] MEDS: [UNRECOGNIZED DRUG - OTHER] IV PRN (13:36)
[2018-02-02] MEDS: LEUCOVORIN CAL IV PRN (13:36)
[2018-02-02] MEDS: LEUCOVORIN CALCIUM IV PRN (13:36)
[2018-02-02] MEDS: OXALIPLATIN IVPB PRN (13:38)
[2018-02-02] MEDS: D5W IVPB PRN (13:38)
[2018-02-02] MEDS: FLUOROURACIL 50 MG/ML SDV IV PRN (15:43)
[2018-02-02] MEDS: NS 0.9% IV PRN (15:44)
[2018-02-02] MEDS: FLUOROURACIL IV PRN (15:44)
[2018-02-02 16:01] VITALS: BP 155/106
[2018-02-03 14:28] VITALS: BP 141/87
[2018-02-04 13:57] VITALS: BP 117/75
[2018-02-04] MEDS: HEPARIN FLSH (PORT) 500 UN/5ML IVP PRN (14:05)
[2018-02-09 16:37] LABS: PLATELET COUNT, AUTOMATED 287 K/uL (150-450)
--- NOTE | 2018-02-16 07:37 | SCHUSTER ONCOLOGY NOTE ---
EVENT DATE: February 03, 2018 CHIEF COMPLAINT/REASON FOR VISIT Mr. Salazar is a pleasant 42-year-old gentleman currently on adjuvant FOLFOX for his T3 N2 high-grade adenocarcinoma of the sigmoid colon. HISTORY OF PRESENT ILLNESS Boris returns. He began FOLFOX on December 08, 2017 adjuvantly. He had 19 of 21 lymph nodes positive for disease. He is at high risk for metastatic disease but he did not have findings of stage IV disease in workup prior to treatment. He is here prior to cycle 5 of adjuvant FOLFOX. He denies any significant adenopathy. He does have expected cold intolerance. It did not last the entire cycle, though. We are following this and may need to reduce the dose in the future. No other concerning symptoms. He feels pleased with how well he is tolerating it overall. ONCOLOGY HISTORY Patient presented in September 2017 with a two-month history of abdominal pain and constipation alternating with diarrhea. He was found to have a large bowel obstruction. He underwent partial colectomy with ostomy placement on 10/28/17. This revealed a stage IIIC adenocarcinoma of the sigmoid colon with 19 of 21 lymph nodes positive (T3 N2 M0), high grade with signet ring cells noted. He began FOLFOX on 12/08/17. MEDICAL HISTORY 1. Colon cancer, September 2017. 2. Type 2 diabetes. 3. Hypertension. SURGICAL HISTORY Partial colectomy with ostomy placement 10/28/17. FAMILY HISTORY Colon cancer in an elderly aunt at age 80. Multiple breast cancers on the maternal side. No other colon, uterine, or ovarian cancer noted. SOCIAL HISTORY Patient is . They have two children. He works for [employer]. He is now a nonsmoker. MEDICATIONS 1. Amlodipine/benazepril. 2. Pioglitazone. 3. Metoprolol. ALLERGIES No known drug allergies. REVIEW OF SYSTEMS CONSTITUTIONAL: No fevers, chills, significant weight change. HEENT: No headache or vision changes. CARDIOVASCULAR: No chest pain, dyspnea on exertion, or edema. RESPIRATORY: No shortness of breath, wheeze, cough. GASTROINTESTINAL: No nausea, vomiting or diarrhea. : No dysuria or hematuria. NEUROLOGIC: Positive cold sensitivity. Minimal neuropathy with the oxaliplatin. PSYCHIATRIC: Stable. Remainder of 14-point review of systems otherwise negative. PHYSICAL EXAMINATION VITAL SIGNS: Blood pressure 141/87, pulse 88, respiratory rate 16, temperature 97.0 Fahrenheit, oxygen saturation 90% on room air, weight 115.6 kg, which is up. Pain 0/10. Fatigue 0/10. GENERAL: Stable condition, resting comfortably in the chair. HEENT: Normocephalic, atraumatic. CARDIOVASCULAR: Regular rate and rhythm. LUNGS: Clear. ABDOMEN: Soft, nontender. NEUROLOGIC: No focal deficit. PSYCHIATRIC: Normal mood and affect. Remainder of physical exam otherwise unremarkable. IMPRESSION/REPORT/PLAN Mr. Salazar is a pleasant 42-year-old gentleman with high risk stage IIIC adenocarcinoma of the colon. He began FOLFOX on December 08, 2017. 1. Proceed with cycle 5 of FOLFOX today. 2. Followup with Dr. Zheng regarding his blood pressure. 3. Continue as-needed antiemetics. Continue to see us with each cycle. Plan to complete all 12 treatments and then repeat imaging. MTDD
[2018-02-16 11:54] VITALS: BP 141/93
[2018-02-16] MEDS: NS(*) 0.9% 500 ML BAG 500 ML IV PRN (12:08)
[2018-02-16] MEDS: LIDOCAINE/SOD BICARB 8.4% SYR ID PRN (12:08)
[2018-02-16] MEDS: DEXAMETHASONE SOD(*) 10MG/ML 10 MG in NS(*) 0.9% 50 ML BAG 50 ML IVP PRN (12:31)
[2018-02-16] MEDS: PALONOSETRON 0.25 MG/5 ML VIAL IVP PRN (12:32)
[2018-02-16] MEDS: [UNRECOGNIZED DRUG - OTHER] IV PRN (13:04)
[2018-02-16] MEDS: LEUCOVORIN CAL IV PRN (13:04)
[2018-02-16] MEDS: LEUCOVORIN CALCIUM IV PRN (13:04)
[2018-02-16] MEDS: OXALIPLATIN IVPB PRN (13:06)
[2018-02-16] MEDS: D5W IVPB PRN (13:06)
[2018-02-16] MEDS: FLUOROURACIL 50 MG/ML SDV IV PRN (15:14)
[2018-02-16] MEDS: NS 0.9% IV PRN (15:45)
[2018-02-16] MEDS: FLUOROURACIL IV PRN (15:45)
--- NOTE | 2018-02-17 16:44 | ONCOLOGY FOLLOW UP NOTE ---
EVENT DATE: February 16, 2018 CHIEF COMPLAINT Followup for colon cancer. HISTORY OF PRESENT ILLNESS Patient is a 42-year-old male who was seen today for consideration of cycle #6 of adjuvant FOLFOX. He continues to tolerate this well. He does have the expected cold intolerance which lasts for several days, but denies any persistent neuropathic pain. 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 He is grateful he is tolerating his treatment so well. ONCOLOGY HISTORY Patient presented in September 2017 with a two-month history of abdominal pain and constipation alternating with diarrhea. He was found to have a large bowel obstruction. He underwent partial colectomy with ostomy placement on 10/28/17. 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 He began FOLFOX on 12/08/17. MEDICAL HISTORY 1. Colon cancer, September 2017. 2. Type 2 diabetes. 3. Hypertension. SURGICAL HISTORY Partial colectomy with ostomy placement 10/28/17. FAMILY HISTORY Colon cancer in an elderly aunt at age 80. Multiple breast cancers on the maternal side. No other colon, uterine, or ovarian cancer noted. SOCIAL HISTORY Patient is . They have two children. He works for [email or web address]. He is now a nonsmoker. MEDICATIONS 1. Amlodipine/benazepril. 2. Pioglitazone. 3. Metoprolol. ALLERGIES No known drug allergies. REVIEW OF SYSTEMS A 12-point review of systems is performed and is negative except as stated above. PHYSICAL EXAMINATION VITAL SIGNS: Weight 111.6 kg. BP 141/93, P 83, R 16, temp 98.0, O2 sat 93%. GENERAL: Patient is a well-developed, well-nourished male in no acute distress. HEAD: Atraumatic, normocephalic. EYES: Sclerae anicteric. MOUTH: Moist mucous membranes. No lesions. CARDIOVASCULAR: Heart rate regular, 83 per minute, without murmur, S3, or S4. LUNGS: Clear bilaterally. ABDOMEN: Soft, nontender, with active bowel sounds. EXTREMITIES: No edema. NEUROLOGIC: Nonfocal. LABORATORY CBC today reveals a WBC 5.7, hemoglobin 14.4, hematocrit 41.9, platelets 278,000. CMP is within normal limits except for an elevated glucose of 306. IMPRESSION AND PLAN The patient is a 42-year-old male with high-risk stage IIIC adenocarcinoma of the colon. He began adjuvant FOLFOX on 12/08/17. 1. Colon cancer. Cycle #6 of FOLFOX today. He continues to tolerate this and requires no dose reductions. 2. Hypertension. Blood pressure today is elevated at 141/93. He continues on amlodipine/benazepril and metoprolol. I reinforced the need to follow up with Dr. Zheng. 3. Hyperglycemia. Random glucose today is 309. We again discussed the importance of diet with type 2 diabetes. He does receive intravenous Decadron which can elevate glucose. 4. Response. CEA has decreased from 7.4 in November to 4.[address] Carreon is planning to rescan him after cycle #12 of treatment. 5. Follow up in two weeks for cycle #7 of treatment. MTDD
[~2018-02-18] VITALS: Ht 177.8 cm; Wt 111.6 kg
[~2018-02-18] MED LIST changes: +ALTEPLASE RECOMB 2 MG VIAL IVP PRN; +D5W IVPB ONE; +D5W IVPB PRN; +NS(*) 0.9% 100 ML BAG 100 ML IVPB PRN; +OXALIPLATIN IVPB ONE; +OXALIPLATIN IVPB PRN; +WATER FOR INJ,STERILE 20 ML IVP PRN
[2018-02-18] MEDS: HEPARIN FLSH (PORT) 500 UN/5ML IVP PRN (14:01)
[2018-02-18 14:04] VITALS: BP 100/70
== END ==
LOC: ONC 11-20 08:32 → SPU 12-10 14:00 → ONC 12-22 11:32 → SPU 12-24 12:52 → ONC 12-25 12:34 → SPU 12-29 16:30 → ONC 01-04 15:39 → SPU 01-07 13:19 → ONC 01-18 11:38 → SPU 01-26 16:10 → ONC 02-02 11:36 → SPU 02-09 16:13 → ONC 02-16 11:51 → SPU 13:20
PROVIDERS: ATTEND Internal Medicine
DX: Z51.11 Encounter for antineoplastic chemotherapy (principal); C18.9 Malignant neoplasm of colon, unspecified; C77.2 Secondary and unspecified malignant neoplasm of intra-abdominal lymph nodes; E11.9 Type 2 diabetes mellitus without complications; I10 Essential (primary) hypertension
CPT/HCPCS: 36415; 36591; 82378; 85025; 85027; 96367; 96368; 96375; 96411; 96413; 96415; 96416; 99202; 99212; J0640; J1100; J1642; J2469; J7040; J7050; J7060; J9190; J9263; 82040; 82247; 82310; 82374; 82435; 82565; 82947; 84075; 84132; 84155; 84295; 84450; 84460; 84520

== ENCOUNTER → 2018-05-25 | Outpatient (RCR) | payer BC ==
[2017-10-27 10:43] VITALS: Ht 178.1 cm; Wt 109.5 kg
[2018-02-24 16:21] VITALS: BP 144/97
[2018-02-24 16:37] LABS: PLATELET COUNT, AUTOMATED 293 K/uL (150-450)
[2018-03-03 11:55] VITALS: BP 136/93
[2018-03-03] MEDS: PALONOSETRON 0.25 MG/5 ML VIAL IVP PRN (12:43)
[2018-03-03] MEDS: [UNRECOGNIZED DRUG - OTHER] IV PRN (13:19)
[2018-03-03] MEDS: LEUCOVORIN CALCIUM IV PRN (13:19)
[2018-03-03] MEDS: LEUCOVORIN CAL IV PRN (13:19)
[2018-03-03] MEDS: D5W IVPB PRN (13:22)
[2018-03-03] MEDS: OXALIPLATIN IVPB PRN (13:22)
[2018-03-03] MEDS: FLUOROURACIL 50 MG/ML SDV IV PRN (15:37)
[2018-03-03] MEDS: FLUOROURACIL IV PRN (15:50)
[2018-03-03] MEDS: NS 0.9% IV PRN (15:50)
[2018-03-05 13:29] VITALS: BP 126/86
[2018-03-05] MEDS: HEPARIN FLSH (PORT) 500 UN/5ML IVP PRN (14:06)
[2018-03-08 13:55] VITALS: BP 124/90
[2018-03-08 14:04] LABS: PLATELET COUNT, AUTOMATED 215 K/uL (150-450)
--- NOTE | 2018-03-15 03:48 | ONCOLOGY FOLLOW UP NOTE ---
EVENT DATE: March 08, 2018 CHIEF COMPLAINT/REASON FOR VISIT Mr. Salazar is a very pleasant 42-year-old gentleman with a history of stage IIIC colon cancer, here for follow-up. HISTORY OF PRESENT ILLNESS Boris has advanced colon cancer but hopefully curable. Utilizing FOLFOX chemotherapy. Overall, he feels well. Understands the high risk of relapse. No new issues thankfully. Will require close monitoring every 3 months through 2020. No fever, chills, concerning lumps or bumps. No increase of blood in the stool or other signs of relapse. ONCOLOGY HISTORY Patient presented in September 2017 with a two-month history of abdominal pain and constipation alternating with diarrhea. He was found to have a large bowel obstruction. He underwent partial colectomy with ostomy placement on 10/28/17. This revealed a stage IIIC adenocarcinoma of the sigmoid colon with 19 of 21 lymph nodes positive (T3 N2 M0), high grade with signet ring cells noted. He began FOLFOX on 12/08/17. MEDICAL HISTORY 1. Colon cancer, September 2017. 2. Type 2 diabetes. 3. Hypertension. SURGICAL HISTORY Partial colectomy with ostomy placement 10/28/17. FAMILY HISTORY Colon cancer in an elderly aunt at age 80. Multiple breast cancers on the maternal side. No other colon, uterine, or ovarian cancer noted. SOCIAL HISTORY Patient is . They have two children. He works for [employer]. He is now a nonsmoker. MEDICATIONS 1. Amlodipine/benazepril. 2. Pioglitazone. 3. Metoprolol. ALLERGIES No known drug allergies. REVIEW OF SYSTEMS CONSTITUTIONAL: No fevers, chills, significant weight change. HEENT: No headache or vision changes. CARDIOVASCULAR: No chest pain, dyspnea on exertion, or edema. RESPIRATORY: No shortness of breath, wheeze, cough. GASTROINTESTINAL: No nausea, vomiting or diarrhea. : No dysuria or hematuria. NEUROLOGIC: No issues. PSYCHIATRIC: Stable. Skin: No issues Endocrine: No heat or cold intolerance. Remainder of 14-point review of systems otherwise negative. PHYSICAL EXAMINATION VITAL SIGNS: Blood pressure 124/90, pulse 78, respiratory rate 16, temperature 98.3 Fahrenheit, oxygen saturation 93% on room air, weight 105.6 kg. Pain 0/10. Fatigue 3/10. GENERAL: Stable condition, resting comfortably in the chair today. ECOG PS 1 HEENT: Normocephalic, atraumatic. CARDIOVASCULAR: Regular rate and rhythm. LUNGS: Clear. ABDOMEN: Soft, nontender. EXTREMITIES: No clubbing, cyanosis, or edema. PSYCHIATRIC: Normal mood and affect. Remainder of physical exam otherwise unremarkable. IMPRESSION/REPORT/PLAN Mr. Salazar is a pleasant 42-year-old gentleman with the followin. Locally advanced colon cancer. Plan for curative intent FOLFOX but high risk for relapse. Will need imaging later in 2019 as well. Currently no signs of relapse but will need close observation with every 3 month visits through 2020. Answered all of their questions today. BILLING Return visit, level 4. Total time 30 minutes, counseling time 25. High risk, high complexity. MTDD
[2018-03-16 10:46] VITALS: BP 130/94
[2018-03-16 11:09] LABS: PLATELET COUNT, AUTOMATED 196 K/uL (150-450)
[2018-03-16] MEDS: DEXAMETHASONE SOD PHOS 10MG/ML IVP PRN (12:13)
[2018-03-16] MEDS: PALONOSETRON 0.25 MG/5 ML VIAL IVP PRN (12:13)
[2018-03-16] MEDS: LIDOCAINE/SOD BICARB 8.4% SYR ID PRN (12:13)
[2018-03-16] MEDS: NS(*) 0.9% 500 ML BAG 500 ML IV PRN (12:14)
[2018-03-16] MEDS: [UNRECOGNIZED DRUG - OTHER] IV PRN (12:57)
[2018-03-16] MEDS: LEUCOVORIN CAL IV PRN (12:57)
[2018-03-16] MEDS: LEUCOVORIN CALCIUM IV PRN (12:57)
[2018-03-16] MEDS: OXALIPLATIN IVPB PRN (12:58)
[2018-03-16] MEDS: D5W IVPB PRN (12:58)
[2018-03-16] MEDS: FLUOROURACIL 50 MG/ML SDV IV PRN (15:17)
[2018-03-16] MEDS: FLUOROURACIL IV PRN (15:18)
[2018-03-16] MEDS: NS 0.9% IV PRN (15:18)
[2018-03-18 13:37] VITALS: BP 128/87
[2018-03-18] MEDS: HEPARIN FLSH (PORT) 500 UN/5ML IVP PRN (13:38)
[2018-03-23 16:29] VITALS: BP 139/90
[2018-03-23 16:46] LABS: PLATELET COUNT, AUTOMATED 286 K/uL (150-450)
[2018-03-29 15:44] VITALS: BP 154/102
[2018-03-30 12:04] VITALS: BP 137/100
[2018-03-30 12:06] LABS: PLATELET COUNT, AUTOMATED 172 K/uL (150-450)
[2018-03-30] MEDS: LIDOCAINE/SOD BICARB 8.4% SYR ID PRN (12:14)
[2018-03-30] MEDS: PALONOSETRON 0.25 MG/5 ML VIAL IVP PRN (12:23)
[2018-03-30] MEDS: DEXAMETHASONE SOD PHOS 10MG/ML IVP PRN (12:23)
[2018-03-30] MEDS: NS(*) 0.9% 500 ML BAG 500 ML IV PRN (12:26)
[2018-03-30] MEDS: DEXTROSE 5%(*) 100 ML BAG 100 ML IVPB PRN (12:30)
[2018-03-30] MEDS: D5W IVPB PRN (12:57)
[2018-03-30] MEDS: OXALIPLATIN IVPB PRN (12:57)
[2018-03-30] MEDS: LEUCOVORIN CAL IV PRN (12:58)
[2018-03-30] MEDS: LEUCOVORIN CALCIUM IV PRN (12:58)
[2018-03-30] MEDS: [UNRECOGNIZED DRUG - OTHER] IV PRN (12:58)
[2018-03-30] MEDS: FLUOROURACIL 50 MG/ML SDV IV PRN (15:31)
[2018-03-30] MEDS: FLUOROURACIL IV PRN (15:32)
[2018-03-30] MEDS: NS 0.9% IV PRN (15:32)
--- NOTE | 2018-04-01 09:31 | ONCOLOGY FOLLOW UP NOTE ---
EVENT DATE: March 29, 2018 CHIEF COMPLAINT Followup for colon cancer. HISTORY OF PRESENT ILLNESS Patient is a 42-year-old male who was seen today in anticipation of cycle #9 of adjuvant FOLFOX. He continues to tolerate this fairly well. He does have nausea and diarrhea for several days, which occurs three days after discontinuing the pump. He has the expected cold intolerance. 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 He denies any evidence of peripheral neuropathy or jaw discomfort. He relates that while at work he was using a sledge hammer, which "fell apart". He knocked himself in the head with the handle and was "knocked out for less than 5 seconds". He still has a dull headache. He did not go to the emergency room and does not feel he has a concussion. He has met with Dr. Zheng, who is working on his hypertension and hyperglycemia. He feels fairly overwhelmed at managing this and would prefer to do this after he completes treatment for colon cancer. ONCOLOGY HISTORY Patient presented in September 2017 with a two-month history of abdominal pain and constipation alternating with diarrhea. He was found to have a large bowel obstruction. He underwent partial colectomy with ostomy placement on 10/28/17. 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 He began FOLFOX on 12/08/17. MEDICAL HISTORY 1. Colon cancer, September 2017. 2. Type 2 diabetes. 3. Hypertension. SURGICAL HISTORY Partial colectomy with ostomy placement 10/28/17. FAMILY HISTORY Colon cancer in an elderly aunt at age 80. Multiple breast cancers on the maternal side. No other colon, uterine, or ovarian cancer noted. SOCIAL HISTORY Patient is . They have two children. He works for [employer]. He is now a nonsmoker. MEDICATIONS 1. Amlodipine/benazepril. 2. Pioglitazone. 3. Metoprolol. ALLERGIES No known drug allergies. REVIEW OF SYSTEMS A 12-point review of systems is performed and is negative except as stated above. PHYSICAL EXAMINATION VITAL SIGNS: Weight 110.5 kg. BP 154/102, P 83, R 16, temp 97.3, O2 sat 93%. GENERAL: Patient is a well-developed, well-nourished male in no acute distress. HEAD: Normocephalic, atraumatic. EYES: Sclerae anicteric. MOUTH: Moist mucous membranes. No lesions. NECK: Supple. No palpable adenopathy. LUNGS: Clear bilaterally. CARDIOVASCULAR: Heart rate regular, 83 per minute, without murmur, S3, or S4. EXTREMITIES: No edema. NEUROLOGIC: Nonfocal. LABORATORY CBC and CMP will be repeated on March 30, 2018. He has not had issues with neutropenia. IMPRESSION AND PLAN The patient is a 42-year-old male with high-risk stage IIIC adenocarcinoma of the colon. He began adjuvant FOLFOX on 12/08/17. 1. Colon cancer. Patient will receive cycle #9 of FOLFOX on March 30, 2018. He continues to tolerate this well. No dose reductions are necessary. 2. Response. CEA has decreased from 7.4 in November to 5.[address] Carreon is planning to re-scan him after completion of 12 cycles of treatment. 3. Hypertension. Ongoing. Blood pressure today is 154/102 and has been consistently elevated. Dr. Zheng is interested in working with him to change some of his medications but he feels he is not able to pursue this during chemotherapy. We discussed the importance of getting this under better control. 4. Diabetes. Random glucoses have also been elevated in the 200-[address] Zheng is also suggesting changes to his medications but, again, he prefers to wait until he completes treatment for cancer. 5. Follow up on March 30, 2018, for cycle #9 of treatment. 6. Follow up with Dr. Carreon on May 03, 2018, for continued care. [facility]
[2018-04-01] MEDS: HEPARIN FLSH (PORT) 500 UN/5ML IVP PRN (13:56)
[2018-04-01 13:59] VITALS: BP 129/71
[2018-04-06 16:30] LABS: PLATELET COUNT, AUTOMATED 246 K/uL (150-450)
[2018-04-06 16:31] VITALS: BP 143/94
[2018-04-13] MEDS: DEXTROSE 5%(*) 100 ML BAG 100 ML IVPB PRN (12:03)
[2018-04-13] MEDS: LIDOCAINE/SOD BICARB 8.4% SYR ID PRN (12:03)
[2018-04-13] MEDS: NS(*) 0.9% 500 ML BAG 500 ML IV PRN (12:03)
[2018-04-13] MEDS: PALONOSETRON 0.25 MG/5 ML VIAL IVP PRN (12:36)
[2018-04-13] MEDS: DEXAMETHASONE SOD PHOS 10MG/ML IVP PRN (12:36)
[2018-04-13 16:14] VITALS: BP 136/82
--- NOTE | 2018-04-14 02:23 | ONCOLOGY FOLLOW UP NOTE ---
EVENT DATE: April 13, 2018 CHIEF COMPLAINT Followup for colon cancer. HISTORY OF PRESENT ILLNESS Patient is a 42-year-old male who was seen today for consideration of cycle #9 of adjuvant FOLFOX. He is tolerating this fairly well, although notes that the cold intolerance lasts slightly longer. He also feels his right third and fourth fingers are somewhat numb, but not interfering with activities of daily living. Hands are very dry and have darker areas on them. He is looking forward to completing his treatment. He has had no issues with his ostomy. ONCOLOGY HISTORY Patient presented in September 2017 with a two-month history of abdominal pain and constipation alternating with diarrhea. He was found to have a large bowel obstruction. He underwent partial colectomy with ostomy placement on 10/28/17. 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 He began FOLFOX on 12/08/17. MEDICAL HISTORY 1. Colon cancer, September 2017. 2. Type 2 diabetes. 3. Hypertension. SURGICAL HISTORY Partial colectomy with ostomy placement 10/28/17. FAMILY HISTORY Colon cancer in an elderly aunt at age 80. Multiple breast cancers on the maternal side. No other colon, uterine, or ovarian cancer noted. SOCIAL HISTORY Patient is . They have two children. He works for [employer]. He is now a nonsmoker. MEDICATIONS 1. Amlodipine/benazepril. 2. Pioglitazone. 3. Metoprolol. ALLERGIES No known drug allergies. REVIEW OF SYSTEMS A 12-point review of systems is performed and is negative except as stated above. PHYSICAL EXAMINATION VITAL SIGNS: Weight 198.2 kg. BP 125/87, P 90, R 16, temp 98.2, O2 sat 90%. GENERAL: Patient is a well-developed, well-nourished male in no acute distress. HEAD: Normocephalic, atraumatic. EYES: Sclerae anicteric. MOUTH: Moist mucous membranes. No lesions. NECK: Supple. No palpable adenopathy. LUNGS: Clear bilaterally. CARDIOVASCULAR: Heart rate regular, 90 per minute. ABDOMEN: Soft, nontender, with active bowel sounds. Ostomy in left middle quadrant. EXTREMITIES: No edema. NEUROLOGIC: Nonfocal. LABORATORY CBC today reveals WBC of 6.0, ANC of 3.6, hemoglobin 14.8, hematocrit 44.7, platelets 159,000. CMP is within normal limits except for glucose 316 (post meal) and sodium 135. IMPRESSION The patient is a 42-year-old male with high-risk stage IIIC adenocarcinoma of the colon. He began adjuvant FOLFOX on 12/08/17. PLAN 1. Colon cancer. Cycle #10 of FOLFOX. He is tolerating this well. He has noted some mild neuropathy in his right third and fourth fingers, but no dose reductions will be made at this time. 2. Derm. Skin on his hands is very dry and slightly peeling. There are some darkened areas. I recommended lanolin or mineral oil-based ointment. 3. Hypertension. Ongoing. Dr. Zheng is interested in working on changing some of his medications. He does not feel he is able to do this at this time during chemotherapy, but he understands the need to get back with Dr. Zheng after completion of treatment. 4. Diabetes. Glucoses remain elevated. He does receive steroids for his premedications. He understands the importance of following up with Dr. Zheng, which he will do after treatment. He is now drinking diet sodas. 5. Follow up on 04/27/18 for cycle #11 of treatment. 6. Follow up with Dr. Carreon on 05/03/18 for continued care. He is planning to scan him after completion of treatment. [facility]
[2018-04-15 13:55] VITALS: BP 118/86
[2018-04-20 15:27] VITALS: BP 143/106
[2018-04-20 15:34] LABS: PLATELET COUNT, AUTOMATED 254 K/uL (150-450)
[2018-04-27 12:15] VITALS: BP 134/94
[2018-04-27] MEDS: DEXAMETHASONE SOD PHOS 10MG/ML IVP PRN (12:55)
[2018-04-27] MEDS: NS(*) 0.9% 500 ML BAG 500 ML IV PRN (12:56)
[2018-04-27] MEDS: PALONOSETRON 0.25 MG/5 ML VIAL IVP PRN (12:56)
[2018-04-27] MEDS: LIDOCAINE/SOD BICARB 8.4% SYR ID PRN (12:56)
--- NOTE | 2018-04-28 14:33 | ONCOLOGY FOLLOW UP NOTE ---
EVENT DATE: April 27, 2018 CHIEF COMPLAINT Followup for colon cancer. HISTORY OF PRESENT ILLNESS Patient is a 42-year-old male who was seen today for consideration of cycle #11 of FOLFOX. He is grateful to be completing his therapy. However, he has noted more neuropathic discomfort in his fingers with increased sensitivity. Previously, this had been occurring on two fingers but now has moved to all his fingers. This has not interfered with activities of daily living. He has no neuropathy on his feet. He has the expected cold intolerance which resolves after several days. He does have some chemo-related fatigue but continues to work full-time. He denies any other new complaints. ONCOLOGY HISTORY Patient presented in September 2017 with a two-month history of abdominal pain and constipation alternating with diarrhea. He was found to have a large bowel obstruction. He underwent partial colectomy with ostomy placement on 10/28/17. 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 He began FOLFOX on 12/08/17. MEDICAL HISTORY 1. Colon cancer, September 2017. 2. Type 2 diabetes. 3. Hypertension. SURGICAL HISTORY Partial colectomy with ostomy placement 10/28/17. FAMILY HISTORY Colon cancer in an elderly aunt at age 80. Multiple breast cancers on the maternal side. No other colon, uterine, or ovarian cancer noted. SOCIAL HISTORY Patient is . They have two children. He works for [employer]. He is now a nonsmoker. MEDICATIONS 1. Amlodipine/benazepril. 2. Pioglitazone. 3. Metoprolol. ALLERGIES No known drug allergies. REVIEW OF SYSTEMS A 12-point review of systems is performed and is negative except as stated above. PHYSICAL EXAMINATION VITAL SIGNS: Weight 110.3 kg, BP 134/94, P 87, R 16, temperature 98.5, O2 sat 90%. GENERAL: Patient is a well-developed, well-nourished male in no acute distress. HEAD: Normocephalic, atraumatic. EYES: Sclerae anicteric. MOUTH: Moist mucous membranes. LUNGS: Clear bilaterally. CARDIOVASCULAR: Heart rate regular, 87 per minute without murmur. ABDOMEN: Soft, nontender with active bowel sounds. Ostomy in left middle quadrant. EXTREMITIES: No edema. NEUROLOGIC: Nonfocal. LABORATORY CBC today reveals WBC of 5.2, hemoglobin 14.7, hematocrit 44.1, platelets 161,000. CMP is within normal limits except for a nonfasting glucose of 303. IMPRESSION The patient is a 42-year-old male with high-risk stage IIIC adenocarcinoma of the colon. He began adjuvant FOLFOX on December 09, 2017. PLAN 1. Colon cancer. Cycle #11 of FOLFOX. Due to increasing neuropathy in his fingertips, will decrease oxaliplatin by 20%. We spent some time discussing that neuropathy could often occur after completion of treatment so would like to avoid this if at all possible. 2. Neuropathy. As above, oxaliplatin will be dose-reduced by 20%. Patient and his state understanding. Briefly discussed gabapentin but he does not feel this is needed now. 3. Derm. Skin on his hands continues to be very dry. He has tried to actively moisturize. 4. Hypertension and diabetes. It has been difficult to control both his blood pressure and his glucoses. He recognizes that he is not eating as well as he might, which is often difficult during treatment. Dr. Zheng is interested in working on changing some medications. Boris plans to follow up with him after completion of treatment. 5. Follow up with Dr. Carreon on May 03, [address] scan is planned at the completion of treatment. [facility]
[2018-04-29 14:53] VITALS: BP 142/90
[2018-05-03 14:57] VITALS: BP 124/90
[2018-05-03 15:02] LABS: PLATELET COUNT, AUTOMATED 255 K/uL (150-450)
--- NOTE | 2018-05-04 09:51 | [facility] ONCOLOGY NOTE ---
EVENT DATE: May 03, 2018 CHIEF COMPLAINT/REASON FOR VISIT Mr. Salazar is a very pleasant 42-year old gentleman with locally advanced stage 3 colon cancer with numerous lymph nodes involved but not technically stage 4. HISTORY OF PRESENT ILLNESS Mr. Salazar returns. He is here prior to cycle 12 of FOLFOX. We had to make a 20% dose reduction of oxaliplatin for cycle 11 and we will do the same for cycle 12. It does not interfere with his activities of daily living. It is cold- induced and he does not have significant symptoms in his feet. Thus, I do believe it will be reversible. Mild improvement with the dose reduction. We discussed reducing it further versus pressing ahead and he strongly wants to press ahead. No other new symptoms. We need to get a PET scan approximately one month after completion of his chemotherapy in late May. ONCOLOGY HISTORY Patient presented in September 2017 with a two-month history of abdominal pain and constipation alternating with diarrhea. He was found to have a large bowel obstruction. He underwent partial colectomy with ostomy placement on 10/28/17. 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 He began FOLFOX on 12/08/17. MEDICAL HISTORY 1. Colon cancer, September 2017. 2. Type 2 diabetes. 3. Hypertension. SURGICAL HISTORY Partial colectomy with ostomy placement 10/28/17. FAMILY HISTORY Colon cancer in an elderly aunt at age 80. Multiple breast cancers on the maternal side. No other colon, uterine, or ovarian cancer noted. SOCIAL HISTORY Patient is . They have two children. He works for [employer]. He is now a nonsmoker. MEDICATIONS 1. Amlodipine/benazepril. 2. Pioglitazone. 3. Metoprolol. ALLERGIES No known drug allergies. REVIEW OF SYSTEMS CONSTITUTIONAL: No fevers, chills, significant weight change. HEENT: No headache or vision changes. CARDIOVASCULAR: No chest pain, dyspnea on exertion or edema. RESPIRATORY: No shortness of breath, wheeze or cough. GI: No nausea or vomiting. : No dysuria or hematuria. MUSCULOSKELETAL: No weakness or joint pain. PSYCHIATRIC: No anxiety or depression. ENDOCRINE: No heat or cold intolerance. SKIN: No concerning rashes or lesions. HEMATOLOGIC: No bruising or bleeding. Remainder of 14-point review of systems otherwise negative. PHYSICAL EXAMINATION VITAL SIGNS: Blood pressure 124/90, pulse 93, respiratory rate 18, temperature 99 degree Fahrenheit, oxygen saturation 90% on room air, weight 112.4 kg. Pain 0/10. Fatigue 1/10. Low fall risk. GENERAL: Stable condition, resting comfortably in the chair. HEAD: Normocephalic, atraumatic. CARDIOVASCULAR: Regular rate and rhythm. No murmur, rub or gallop. LUNGS: Clear to auscultation bilaterally. ABDOMEN: Soft, nontender, nondistended. EXTREMITIES: No clubbing, cyanosis or edema. Remainder of physical exam otherwise unremarkable. IMPRESSION/REPORT/PLAN Mr. Salazar is a pleasant 42-year old gentleman with high risk stage 3C adenocarcinoma of the colon, on FOLFOX adjuvant chemotherapy. PLAN 1. Continue FOLFOX with a 20% reduction of oxaliplatin starting with cycle 11 and continuing with cycle 12. We spent considerable time today discussing his neuropathy. 2. 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 I do believe this will be reversible. He has gabapentin at home but he is not yet using it. Pain is intermittent and tolerable. 3. Hypertension and diabetes. Continues to control this. His blood pressure is excellent today. He should take his diabetes medicines prior to the PET scan coming up. I answered all of his many questions today. I will see him in approximately 1-1/2 months after his PET scan, either here or in [facility]. Billing: Return visit level 4. Total time 30 minutes, counseling time 25. High risk, high complexity. MTDD
[2018-05-11 11:55] VITALS: BP 132/93
[2018-05-11] MEDS: LIDOCAINE/SOD BICARB 8.4% SYR ID PRN (12:08)
[2018-05-11] MEDS: NS(*) 0.9% 500 ML BAG 500 ML IV PRN (12:08)
[2018-05-11] MEDS: PALONOSETRON 0.25 MG/5 ML VIAL IVP PRN (12:40)
[2018-05-11] MEDS: DEXAMETHASONE SOD PHOS 10MG/ML IVP PRN (12:41)
--- NOTE | 2018-05-12 00:09 | ONCOLOGY FOLLOW UP NOTE ---
EVENT DATE: May 11, 2018 CHIEF COMPLAINT Mr. Salazar is a very pleasant 42-year old gentleman with locally advanced stage III colon cancer with numerous lymph node involvement, though is not technically stage IV. He is here today for ongoing care and is due for his last cycle of FOLFOX today. HISTORY OF PRESENT ILLNESS Mr. Salazar is here today for Cycle #12 of 12 with FOLFOX. He did necessitate a 20% dose reduction of oxaliplatin with Cycle #11, which we will continue with today's cycle, Cycle #12. 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 It does not interfere with his activities of daily living; however, today he tells me that this is present pretty much constant 22/09. He mostly feels that these are numb, but occasionally will feel some tingling sensations. He does have gabapentin at home, which he was initially prescribed in the postoperative setting, though is not using this for neuropathy. He denies any other significant symptoms, to include no nausea, vomiting, mucositis or stomatitis, and reports good appetite. He is drinking fluids well. Our plan is to repeat a PET scan approximately one month after his last dose of chemotherapy today. ONCOLOGY HISTORY Patient presented in September 2017 with a two-month history of abdominal pain and constipation alternating with diarrhea. He was found to have a large bowel obstruction. He underwent partial colectomy with ostomy placement on 10/28/17. 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 He began FOLFOX on 12/08/17. Initial CEA was in the high 50s at 56. PAST MEDICAL HISTORY 1. Colon cancer, September 2017. 2. Type 2 diabetes. 3. Hypertension. PAST SURGICAL HISTORY Partial colectomy with ostomy placement 10/28/17. FAMILY HISTORY Colon cancer in an elderly aunt at age 80. Multiple breast cancers on the maternal side. No other colon, uterine, or ovarian cancer noted. SOCIAL HISTORY Patient is . They have two children. He works for [employer]. He is now a nonsmoker. ALLERGIES No known drug allergies. MEDICATIONS 1. Amlodipine/benazepril. 2. Pioglitazone. 3. Metoprolol. REVIEW OF SYSTEMS A 12-point review of systems is negative other than what is stated above and immediately following. CONSTITUTIONAL: He denies any fevers, chills, or night sweats. No significant weight changes and reports good appetite. HEENT: He denies any vision changes. He denies any oral ulcerations, and no dysphagia or odynophagia. RESPIRATORY: He denies any shortness of breath, wheezes, or cough. No dyspnea on exertion. CARDIOVASCULAR: He denies any chest pain. No syncope or presyncope. GASTROINTESTINAL: He reports that his colostomy is functioning well. He denies any nausea or vomiting. He reports a great appetite. NEUROLOGIC: He denies any significant headache. He does continue to experience numbness in his fingers bilaterally. He does not have any significant symptoms in his feet. This is pretty much around the clock, but tells me that this is at his baseline. He does not feel that he needs gabapentin. PSYCHIATRIC: He denies any significant or severe anxiety, depression, suicidal or homicidal ideation. DERM: He denies any significant rash or suspicious skin lesions. He has noted some mild nail changes in the form of noticeable white ridges or lines on some of his fingernails bilaterally. These are not painful and are simply noticeable. This only became noticeable in the last week or so. PHYSICAL EXAMINATION VITAL SIGNS: Weight 109.5 kg, down 3 kg compared to last week. T 99.0 F, P 73, R 16, BP 132/93, oxygen saturation 94% room air. GENERAL: This is a pleasant 42-year-old gentleman who appears to be well hydrated, well nourished, and is in no acute distress. His is at the bedside. HEAD: Normocephalic, atraumatic. ENT, MOUTH: No oral ulcerations. Moist mucous membranes. NECK: Supple. No lymphadenopathy. No JVD. CARDIOVASCULAR: Regular rate and rhythm. No ectopy. LUNGS: Clear breath sounds to auscultation bilaterally. ABDOMEN: Soft, nontender, nondistended. Colostomy is in place. EXTREMITIES: No edema bilaterally. No clubbing or cyanosis. NEUROLOGIC: Patient is awake, alert, oriented times three. PSYCHIATRIC: Mood and affect are within normal limits. Patient is in great spirits. DERM: Patient has very minor nail changes noted to his forefinger on the right. This is likely related to 5-FU. These look like white streaks on his fingernails, but there is no sign of infection. MUSCULOSKELETAL: Gait is steady. Strength appears 5/5 throughout. LABORATORY CBC today: WBC 5.5, ANC 3.2, hemoglobin 15.7, hematocrit 43.4%, platelets 194,000. CMP today: Sodium low at 131, largely at baseline compared to patient's previous. This patient's sodium averages 132 over the last four weeks or so. Potassium normal at 4.7, BUN normal, serum creatinine mildly low at 0.60. AST mildly elevated at 38, up from previous 20. ALT 24, normal. Alkaline phosphatase normal at 101. Total protein normal at 7.5 with albumin normal at 4.1. Random glucose today is elevated at 374, down from previous 438 on 05/03/18. Patient does have a history of diabetes. Most recent CEA on 05/03/2018: 5.3, mildly increased from previous 5.2 on 04/06/18. ASSESSMENT AND PLAN Mr. Salazar is a pleasant 42-year-old gentleman with high-risk stage IIIC adenocarcinoma of the colon, currently on adjuvant chemotherapy with FOLFOX. Today will be his last/12th cycle of FOLFOX. His oxaliplatin is currently on a dose reduction. He is tolerating treatment well with the exception of some ongoing numbness in his hands bilaterally, which is largely unchanged. He reports good appetite, is drinking well, and denies any other pain. 1. Chemotherapy: Patient will continue with his last cycle with FOLFOX today, with oxaliplatin at the same dose reduction of 20% secondary to his neuropathy. 2. 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 This is unchanged, and he reports that this is tolerable. I again explained that he does have gabapentin at home and may try this, but he tells me he is not using it and does not think that he needs it. We discussed that reversible neuropathy does take quite some time to resolve in the post-chemotherapy setting. He is aware that he may not notice total improvement before the six- to nine-month ana post chemotherapy. He will alert us if this worsens. 3. History of hypertension and diabetes: Patient reports that he continues to control this. Blood pressure today is in range. His blood glucose is elevated, though it is better compared to the past. He is aware that he should take his diabetes medications prior to his PET scan, which is coming up. 4. Repeat imaging: Plan is for PET scan post completion of chemotherapy. This is scheduled to be done on 05/28/18. 5. Nail changes, chemotherapy induced: Very mild, likely related to 5-FU. There is no pain or sign of infection. This should resolve spontaneously further out from treatment. 6. Patient will return to the clinic as scheduled for followup with his medical oncologist, Dr. Carreon, after his PET scan. Patient is scheduled for followup with MD on 05/31/2018. 7. Patient is to alert us for any changes in the interim. MTDD
[2018-05-13 13:27] VITALS: BP 131/83
[2018-05-13] MEDS: HEPARIN FLSH (PORT) 500 UN/5ML IVP PRN (13:32)
[2018-05-18 16:42] LABS: PLATELET COUNT, AUTOMATED 229 K/uL (150-450)
[~2018-05-25] VITALS: Ht 178.1 cm; Wt 109.5 kg
[~2018-05-25] MED LIST changes: +DEXAMETHASONE SOD(*) 10MG/ML 10 MG in NS(*) 0.9% 50 ML BAG 50 ML IVP PRN; +FLUOROURACIL 50 MG/ML SDV IV ONE; +FLUOROURACIL 50 MG/ML SDV IV PRN; +FLUOROURACIL IV ONE; +FLUOROURACIL IV PRN; +GABA300S PO; +LEUCOVORIN CAL IV ONE; +LEUCOVORIN CAL IV PRN; +LEUCOVORIN CALCIUM IV ONE; +LEUCOVORIN CALCIUM IV PRN; +NS 0.9% IV ONE; +NS 0.9% IV PRN; +[UNRECOGNIZED DRUG - OTHER] IV ONE; +[UNRECOGNIZED DRUG - OTHER] IV PRN
[2018-05-25 16:31] VITALS: BP 139/90
[2018-05-25 16:48] LABS: PLATELET COUNT, AUTOMATED 180 K/uL (150-450)
== END ==
LOC: SPU 02-24 13:14 → ONC 03-03 11:45 → SPU 03-05 13:23 → ONC 03-16 10:42 → SPU 03-18 12:49 → ONC 04-13 11:43 → SPU 04-15 13:36 → ONC 04-27 11:42 → SPU 04-29 13:19 → ONC 05-11 11:47 → SPU 05-13 13:08
PROVIDERS: ATTEND Internal Medicine
DX: Z51.11 Encounter for antineoplastic chemotherapy (principal); C18.9 Malignant neoplasm of colon, unspecified; C15.9 Malignant neoplasm of esophagus, unspecified; E11.9 Type 2 diabetes mellitus without complications; I10 Essential (primary) hypertension; G62.9 Polyneuropathy, unspecified
CPT/HCPCS: 36415; 82378; 85025; 85027; 96368; 96375; 96413; 96415; 96416; 96417; 99212; J0640; J1100; J1642; J2469; J7040; J7050; J7060; J9190; J9263; 82040; 82247; 82310; 82374; 82435; 82565; 82947; 84075; 84132; 84155; 84295; 84450; 84460; 84520

== ENCOUNTER → 2018-05-27 | Outpatient (REF) ==
[2017-10-27 10:43] VITALS: BMI 35.0
[~2018-05-27] MED LIST changes: -ALTEPLASE RECOMB 2 MG VIAL IVP PRN; -D5W IVPB ONE; -D5W IVPB PRN; -DEXAMETHASONE SOD(*) 10MG/ML 10 MG in NS(*) 0.9% 50 ML BAG 50 ML IVP PRN; -FLUOROURACIL 50 MG/ML SDV IV ONE; -FLUOROURACIL 50 MG/ML SDV IV PRN; -FLUOROURACIL IV ONE; -FLUOROURACIL IV PRN; -LEUCOVORIN CAL IV ONE; -LEUCOVORIN CAL IV PRN; -LEUCOVORIN CALCIUM IV ONE; -LEUCOVORIN CALCIUM IV PRN; -NS 0.9% IV ONE; -NS 0.9% IV PRN; -NS(*) 0.9% 100 ML BAG 100 ML IVPB PRN; -OXALIPLATIN IVPB ONE; -OXALIPLATIN IVPB PRN; -WATER FOR INJ,STERILE 20 ML IVP PRN; -[UNRECOGNIZED DRUG - OTHER] IV ONE; -[UNRECOGNIZED DRUG - OTHER] IV PRN
== END ==
LOC: AUD 13:25
PROVIDERS: ATTEND Surgery
DX: Z01.12 Encounter for hearing conservation and treatment (principal)
CPT/HCPCS: 92552

== ENCOUNTER → 2018-06-09 | Day surgery (SDC) | payer BC ==
[2017-10-27 10:43] VITALS: Ht 177.8 cm; Wt 108.9 kg
[~2018-06-09] VITALS: Ht 177.8 cm; Wt 108.9 kg
[~2018-06-09] MED LIST changes: +LIDOCAINE/SOD BICARB 8.4% SYR ID ONE; +NORMOSOL R SOLN(*) 1000 ML BAG 1,000 ML IV PRN; +PROPOFOL EMUL(*) 10MG/ML 20 ML 20 ML ONE
[2018-06-09 10:31] VITALS: BP 145/97
[2018-06-09 11:17] VITALS: BP 119/84
--- NOTE | 2018-06-09 11:26 | Short(Outpt) Discharge Summary ---
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 Status: Chronic Hospital Course & Plan: Colonoscopy through stoma completed without problems, normal. (2) Colostomy in place Status: Chronic Departure Discharge to: Home, Self Care Discharge Instructions Home Meds Reported Medications Gabapentin (GABAPENTIN) Unknown Strength Solution, PO TID 05/17/18 Amlodipine Besylate/Benazepril (AMLODIPINE-BENAZEPRIL 10-40 MG) 1 Each Capsule, 1 EACH PO QDAY, CAPSULE 10/30/17 Metoprolol Succinate (METOPROLOL SUCCINATE) 50 Mg Tab.er.24h, 1 TAB PO QDAY, TAB 10/26/17 Pioglitazone Hcl (PIOGLITAZONE HCL) 45 Mg Tablet, 45 MG PO QDAY 10/26/17 Diet: Regular Activity: As Tolerated Special Instructions: Your colonoscopy was completed without problems. I didn't find any polyps, cancer, or other abnormalities. My office will call you to schedule a follow up appointment to see me in my office after your oncology follow up to start discussing surgery to take down your colostomy if your PET scan and Dr. Carreon indicate there's no reason not to proceed with surgery. AUDIE MONAE MD Jun 09, 2018 11:26
[2018-06-09 11:52] VITALS: BP 122/86
[2018-06-09 11:57] VITALS: BP 121/86
[2018-06-09 11:58] VITALS: BP 125/77
== END ==
LOC: OR 00:15
PROVIDERS: ATTEND Surgery
DX: Z12.11 Encounter for screening for malignant neoplasm of colon (principal); Z85.038 Personal history of other malignant neoplasm of large intestine; E11.9 Type 2 diabetes mellitus without complications
CPT/HCPCS: 00812; 36416; 44388; 82948; J2704

== ENCOUNTER 2018-07-05 14:30 | Outpatient (RCR) | payer BC ==
[2018-05-31 14:28] VITALS: BP 155/102
[2018-05-31 14:43] LABS: PLATELET COUNT, AUTOMATED 273 K/uL (150-450)
--- NOTE | 2018-06-01 05:54 | ONCOLOGY FOLLOW UP NOTE ---
EVENT DATE: May 31, 2018 CHIEF COMPLAINT/REASON FOR VISIT Mr. Salazar is a pleasant 42-year-old gentleman with locally advanced stage III colon cancer with numerous lymph node involvement. He is here for followup after completing FOLFOX for a toxicity check. HISTORY OF PRESENT ILLNESS Mr. Salazar is here today after completing 12 cycles of FOLFOX. He did require a 20% dose reduction of oxaliplatin with cycle 11, but he wanted to continue pressing ahead aggressively despite cold-induced neuropathy. He did not have any pain, though, until this last, twelfth dose. He started taking gabapentin, and he has taken approximately four pills thus far. He indicated it would be gallo for him to use that once or twice a day. It does make him somewhat sleepy, but he does not think it would interfere with work. The main purpose of this is to reduce the painful neuropathy. No other issues today, and he is due for his PET scan on June 28, 2018. ONCOLOGY HISTORY Patient presented in September 2017 with a two-month history of abdominal pain and constipation alternating with diarrhea. He was found to have a large bowel obstruction. He underwent partial colectomy with ostomy placement on 10/28/17. 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 He began FOLFOX on 12/08/17. Initial CEA was in the high 50s at 56. PAST MEDICAL HISTORY 1. Colon cancer, September 2017. 2. Type 2 diabetes. 3. Hypertension. PAST SURGICAL HISTORY Partial colectomy with ostomy placement 10/28/17. FAMILY HISTORY Colon cancer in an elderly aunt at age 80. Multiple breast cancers on the maternal side. No other colon, uterine, or ovarian cancer noted. SOCIAL HISTORY Patient is . They have two children. He works for [employer]. He is now a nonsmoker. ALLERGIES No known drug allergies. MEDICATIONS 1. Amlodipine/benazepril. 2. Pioglitazone. 3. Metoprolol. 4. Gabapentin as needed. REVIEW OF SYSTEMS CONSTITUTIONAL: No fevers, chills, weight change. HEENT: No headache or vision changes. CARDIOVASCULAR: No chest pain, dyspnea on exertion, or edema. RESPIRATORY: No shortness of breath, wheeze, or cough. GASTROINTESTINAL: No nausea or vomiting. His colostomy is working well. Good appetite. GENITOURINARY: Negative. No dysuria. NEUROLOGIC: No significant headache. He does have positive numbness and some painful component as outlined above. Minimal motor component, although there is a slight bhargavi component. PSYCHIATRIC: No anxiety or depression. SKIN: No concerning rashes or lesions. IMMUNOLOGIC: No recent infections. HEMATOLOGIC: No issues with bruising or bleeding. Remainder of 14-point review of systems is otherwise negative. PHYSICAL EXAMINATION VITAL SIGNS: Blood pressure 155/102, pulse 84, respiratory rate 16, temperature 98.1 Fahrenheit, oxygen saturation 98% on room air. Weight 113.6 kg. Pain zero/10, fatigue zero/10. GENERAL: Stable condition, resting comfortably in the chair. HEENT: Normocephalic, atraumatic. No mucositis. CARDIOPULMONARY: Exam deferred today. ABDOMEN: Old colostomy is in place. EXTREMITIES: Without clubbing, cyanosis, or significant edema. NEUROLOGIC: Alert and oriented. No significant motor deficits, but he does have the painful neuropathy and numbness. PSYCHIATRIC; Normal mood and affect. SKIN: No concerning findings. He does have the nail changes related to the chemotherapy. Remainder of physical exam otherwise unremarkable. IMPRESSION/REPORT/PLAN Mr. Salazar is a pleasant 42-year-old gentleman with the followin. High-risk stage IIIC adenocarcinoma of the colon, having completed 12 cycles of FOLFOX over six months. He did require a 20% dose reduction of oxaliplatin due to neuropathy. He wanted to maintain this dose despite some progressive component of the neuropathy, given his high risk of relapse and desire for cure. 2. Neuropathy, cold induced typically, but is more constant. There is more pain component to it. I discussed how gabapentin can help him, and he has taken it as needed with some relief. We will continue. 3. Followup imaging due for June 28, 2018. I will see him after that time in early June. Answered all of his questions today. BILLING Return visit level 3. Total time 20 minutes, counseling time 15. MTDD
--- NOTE | 2018-06-08 09:35 | NUR ---
SW emailed patient's a list of cancer scholarship and adventure trip opportunities, per her request.
[2018-06-08 16:48] LABS: PLATELET COUNT, AUTOMATED 216 K/uL (150-450)
[2018-06-29 16:18] VITALS: BP 145/100
[2018-06-29 16:39] LABS: PLATELET COUNT, AUTOMATED 304 K/uL (150-450)
[~2018-07-05 14:30] MED LIST changes: -LIDOCAINE/SOD BICARB 8.4% SYR ID ONE; -NORMOSOL R SOLN(*) 1000 ML BAG 1,000 ML IV PRN; -PROPOFOL EMUL(*) 10MG/ML 20 ML 20 ML ONE
[2018-07-05 15:52] VITALS: BP 155/91
--- NOTE | 2018-07-06 08:22 | [facility] ONCOLOGY NOTE ---
EVENT DATE: July 05, 2018 CHIEF COMPLAINT/REASON FOR VISIT Mr. Salazar is a very pleasant 42-year old gentleman with advanced stage IIIC colon cancer, having completed adjuvant FOLFOX chemotherapy, here for followup. HISTORY OF PRESENT ILLNESS Boris returns. He finished 12 cycles of FOLFOX. He required a 20% dose- reduction of oxaliplatin with cycles 11 and 12 due to neuropathy but he wanted to continue pressing ahead aggressively despite cold-induced neuropathy. He did not have any pain, though, until his last 12th dose. He started gabapentin with minimal relief. We may require a physical therapy consultation for possible interventions with temperature or electrical stimulation to help with his neuropathy, although if the pain is the greatest issue would consider Lyrica next. We have the PET scan now done, which shows no evidence or disease at this time. We plan to use CT imaging in the future. There are some subcentimeter nodules in the lungs that have not changed and he believes he had scarring in the lung prior to diagnosis. The lack of improvement is, in fact, encouraging in suggesting that these are unrelated to cancer. ONCOLOGY HISTORY Patient presented in September 2017 with a two-month history of abdominal pain and constipation alternating with diarrhea. He was found to have a large bowel obstruction. He underwent partial colectomy with ostomy placement on 10/28/17. 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 He began FOLFOX on 12/08/17. Initial CEA was in the high 50s at 56. PAST MEDICAL HISTORY 1. Colon cancer, September 2017. 2. Type 2 diabetes. 3. Hypertension. PAST SURGICAL HISTORY Partial colectomy with ostomy placement 10/28/17. FAMILY HISTORY Colon cancer in an elderly aunt at age 80. Multiple breast cancers on the maternal side. No other colon, uterine, or ovarian cancer noted. SOCIAL HISTORY Patient is . They have two children. He works for [employer]. He is now a nonsmoker. ALLERGIES No known drug allergies. MEDICATIONS 1. Amlodipine/benazepril. 2. Pioglitazone. 3. Metoprolol. 4. Gabapentin as needed. REVIEW OF SYSTEMS CONSTITUTIONAL: No fevers, chills, weight change. HEENT: No headache or vision changes. CARDIOVASCULAR: No chest pain, dyspnea on exertion, or edema. RESPIRATORY: No shortness of breath, wheeze, or cough. GASTROINTESTINAL: No nausea or vomiting. His colostomy is working well and he meets with surgery tomorrow. GENITOURINARY: No dysuria or hematuria. NEUROLOGIC: He does have numbness and painful neuropathy related to oxaliplatin in the hands and feet but more problematic in his hands. PSYCHIATRIC: No anxiety or depression. SKIN: No concerning rashes or lesions. IMMUNOLOGIC: No recent infections or other concerns. HEMATOLOGIC: No bruising or bleeding issues. Remainder of 14-point review of systems is otherwise negative. PHYSICAL EXAMINATION VITAL SIGNS: Blood pressure 155/91, pulse 89, respiratory rate 16, temperature 97.4 Fahrenheit, oxygen saturation 92% on room air. Weight 115.3 kg. Pain 0/10, fatigue 0/10. GENERAL: Stable condition, resting comfortably in the chair. HEENT: Normocephalic, atraumatic. CARDIOVASCULAR: Normal S1, S2. Regular rate and rhythm. LUNGS: Clear. ABDOMEN: Colostomy is in place. Full exam deferred today. EXTREMITIES: No clubbing, cyanosis or significant edema. NEUROLOGIC: No significant motor deficits but he has painful sensory neuropathy and numbness. PSYCHIATRIC; Normal mood and affect. SKIN: No other concerning findings. Remainder of physical exam otherwise unremarkable. IMPRESSION/REPORT/PLAN Mr. Salazar is a very pleasant 42-year-old gentleman with the followin. High-risk stage IIIC adenocarcinoma of the colon, having completed 12 cycles of FOLFOX over six months. He required a 20% reduction in oxaliplatin due to neuropathy for the last two doses. He wanted to maintain this dose despite some progressive component of the neuropathy given the high risk of relapse and desire for cure. We did discuss today that I believe the chemotherapy and its aggressiveness increased his chance of cure significantly but he still has a significant risk of relapse and we need to follow him closely. I would like to see him every three months for the first year with scans every six months. 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 Pain is the biggest issue. We can try Lyrica if the Neurontin is not successful. 3. Colostomy. He has followup with surgery tomorrow. I answered all of his many questions today. Billing: Return visit level 4. Total time 30 minutes, counseling time 10. MTDD
[2018-08-06] MEDS ORDERED: METO100T20 PO (13:45)
[2018-08-06] MEDS ORDERED: GABA-549 PO (13:45)
[2018-08-13 09:37] VITALS: Wt 115.3 kg
== END 2018-08-26 ==
LOC: ONC 14:30
PROVIDERS: ATTEND Internal Medicine
DX: C18.9 Malignant neoplasm of colon, unspecified (principal); C77.9 Secondary and unspecified malignant neoplasm of lymph node, unspecified; G62.9 Polyneuropathy, unspecified; E11.9 Type 2 diabetes mellitus without complications
CPT/HCPCS: 36415; 82040; 82247; 82310; 82374; 82378; 82435; 82565; 82947; 84075; 84132; 84155; 84295; 84450; 84460; 84520; 85025; 99212

== ENCOUNTER → 2018-07-30 | Outpatient (CLI) | payer BC ==
[2017-10-27 10:43] VITALS: BMI 35.0
== END ==
LOC: LAB 10:19
PROVIDERS: ATTEND Surgery
DX: Z01.818 Encounter for other preprocedural examination (principal)
CPT/HCPCS: 36415; 83036

== ENCOUNTER 2018-08-12 00:22 | Inpatient (IN) | payer BC ==
[~2018-08-12] VITALS: Ht 177.8 cm; Wt 110.4 kg
[2018-08-12] VITALS (9 sets, daily range): BP systolic 129–147; BP diastolic 92–107
[~2018-08-12 00:22] MED LIST changes: +METO100T20 PO
[2018-08-12] MEDS ORDERED: fentaNYL CITR 250 MCG/5 ML AMP ONE (10:02)
[2018-08-12] MEDS ORDERED: ONDANSETRON 4 MG/2 ML VIAL ONE (10:03)
[2018-08-12] MEDS ORDERED: LIDOCAINE MPF 1% 5 ML VIAL ONE (10:03)
[2018-08-12] MEDS ORDERED: PROPOFOL EMUL(*) 10MG/ML 20 ML 20 ML ONE (10:03)
[2018-08-12] MEDS ORDERED: KETAMINE HCL 200 MG/20 ML MDV ONE ×2 (10:04→14:14)
[2018-08-12] MEDS ORDERED: ROCURONIUM BROM 10 MG/ML 10 ML ONE ×2 (10:06→13:57)
[2018-08-12] MEDS ORDERED: NS(*) 0.9% 500 ML BAG 500 ML ONE (10:34)
[2018-08-12] MEDS ORDERED: ENOXAPARIN 40 MG/0.4ML SYR SC ONE (12:05)
[2018-08-12] MEDS ORDERED: FAMOTIDINE 20 MG TAB PO ONE (12:05)
[2018-08-12] MEDS ORDERED: NORMOSOL R SOLN(*) 1000 ML BAG 1,000 ML IV PRN (12:05)
[2018-08-12] MEDS ORDERED: MIDAZOLAM 2 MG/2 ML VIAL IVP PRN (12:05)
[2018-08-12] MEDS ORDERED: PREGABALIN 150 MG CAPSULE PO ONE (12:05)
[2018-08-12] MEDS ORDERED: AMPICILLIN/SULBACT (*) 3 GM VL 3 GM in NS(*) 0.9% 100 ML MINI-BAG 100 ML IVPB ONE ×2 (12:05→18:35)
[2018-08-12] MEDS ORDERED: ACETAMINOPHEN 500 MG TAB PO ONE (12:05)
[2018-08-12] MEDS ORDERED: LIDOCAINE/SOD BICARB 8.4% SYR ID ONE (12:05)
[2018-08-12] MEDS ORDERED: ROPIVACAINE 0.5% 20 ML VIAL ONE ×2 (12:15→13:01)
[2018-08-12] MEDS ORDERED: INDOCYANINE GREEN 25 MG VIAL IVP ONE (12:15)
--- NOTE | 2018-08-12 12:18 | EKG ---
FACILITY: [facility] PATIENT NAME: JANY JAQUEZ : [id number] MR: [id number] V: [id number] EXAM DATE: ORDERING PHYSICIAN: ORTIZ DAVE TECHNOLOGIST: LYNDA Test Reason : PRE OP Blood Pressure : / mmHG Vent. Rate : 078 BPM Atrial Rate : 078 BPM P-R Int : 142 ms QRS Dur : 092 ms QT Int : 372 ms P-R-T Axes : 022 097 058 degrees QTc Int : 424 ms Normal sinus rhythm Rightward axis Borderline ECG When compared with ECG of 28-OCT-2017 07:24, No significant change was found Confirmed by Ben Murphy ([id number] on 08/12/2018 2:58:49 PM Referred By: LETHA Confirmed By:Ben Kwong
[2018-08-12] MEDS ORDERED: SUGAMMADEX SOD 500 MG/5 ML SDV ONE (13:07)
[2018-08-12] MEDS ORDERED: ARTIFICIAL TEARS OINT 3.5 GM ONE (13:12)
[2018-08-12] MEDS ORDERED: ePHEDrine 25 MG/5 ML DISP.SYR IVP ONE (13:12)
[2018-08-12] MEDS ORDERED: HYDROmorphone HCL 2 MG/ML SDV ONE (15:35)
[2018-08-12] MEDS ORDERED: ACETAMINOPHEN(*)1000 MG/100 ML 100 ML IVPB ONE (18:30)
[2018-08-12] MEDS ORDERED: INSULIN HUM REG 100 UN/ML 3 ML VIAL SC ONE (19:05)
[2018-08-12] MEDS ORDERED: ALBUTEROL/IPRATROPIUM 3 ML NEB ONE (19:10)
[2018-08-12] MEDS ORDERED: ALBUTEROL/IPRATROPIUM 3 ML NEB NEB PRN (19:15)
[2018-08-12] MEDS ORDERED: ONDANSETRON 4 MG/2 ML VIAL IVP PRN (19:15)
[2018-08-12] MEDS ORDERED: NALOXONE HCL 0.4 MG/ML VIAL IVP PRN (19:15)
[2018-08-12] MEDS ORDERED: FLUSH 10 ML SYR IVP PRN (19:15)
--- NOTE | 2018-08-12 19:39 | Post Operative Progress Note ---
Post Operative Progress Note Date: Aug 12, 2018 Time: 19:28 Surgeon: Akiko Dictation number: [id number] Aids Social Worker: Dr. Fuller Anesthesia: GETA by Dr. Borrero Pre-Op Diagnosis: Colostomy h/o Colon cancer Post-Op Diagnosis: YOVANI Findings: diffuse adhesions Procedure(s): Robotic adhesiolysis Robotic colostomy takedown with colocolonic anastomosis Specimen Removed:(May be N/A): Colostomy Complications: None Fluids: See anesthesia record Estimated Blood Loss: 50mL Date OP Note Dictated: Aug 12, 2018 Time OP Note Dictated: 19:29 AUDIE MONAE MD Aug 12, 2018 19:39
[2018-08-12] MEDS ORDERED: fentaNYL CITR 100 MCG/2 ML AMP ONE (20:42)
[2018-08-12] MEDS: HYDROmorphone HCL 2 MG/ML SDV IVP PRN (21:39)
[2018-08-12] MEDS: GABAPENTIN 300 MG CAP PO SCH (21:57)
--- NOTE | 2018-08-12 23:22 | OPERATIVE REPORT 1 ---
EVENT DATE: August 12, 2018 SURGEON: Pasquale Wharton MD ANESTHESIOLOGIST: Steven Borrero MD ANESTHESIA: General endotracheal anesthesia. POOL ATTENDANT: Alan Fuller MD PREOPERATIVE DIAGNOSES 1. Colostomy. 2. History of colon cancer. POSTOPERATIVE DIAGNOSES 1. Colostomy. 2. History of colon cancer. PROCEDURE PERFORMED 1. Robotic adhesiolysis. 2. Robotic colostomy takedown with colocolonic anastomosis. COMPLICATIONS None. CONDITION Stable. BLOOD LOSS 50 mL. SPECIMENS Colostomy. FINDINGS This patient had diffuse adhesions all up and down his midline and left side of his abdomen, but otherwise no other intra-abdominal findings. INDICATIONS FOR PROCEDURE This is a 42-year-old male who was admitted to the hospital last year with an obstructing colon cancer, treated with emergent Taz procedure. He recovered well from this, and I performed a colonoscopy on him to make sure there was no other cancer or other colonic abnormalities, and everything looked good, and so he was requesting to have his colostomy reversed. DESCRIPTION OF PROCEDURE The patient was brought to the operating room and placed supine on the operating table. General endotracheal anesthesia was administered, and his legs were placed in the [place] and a Tinajero catheter was inserted without problems. His abdomen was prepped and draped in a sterile fashion, and a time-out was completed. I then anesthetized the right subcostal skin with 0.5% bupivacaine plain and made a 5 mm incision and used a Veress needle to access the abdominal cavity, and insufflated the abdominal cavity to a pressure of 15 mmHg. I then used a 5 mm optical trocar and inserted the camera into the trocar, and it was focused, and then inserted the trocar into the insufflated abdomen under direct visualization without any problems. After the port was inserted under direct visualization, I placed a 12 mm robotic port in the epigastric midline and three 8 mm robotic ports in a diagonal from the epigastric midline down to the right lower quadrant. There were extensive adhesions all along the midline, and these initially were taken down laparoscopically next to the ports to create room to work. Then, after I had enough room to work, I brought in the robotic, docked it and targeted it, and inserted instruments, and then took down the rest of the adhesions robotically, mostly with the vessel sealer device, without any problems. A few of these adhesions included loops of bowel, but thankfully there were wispy adhesions between the bowel and the abdominal wall. About 2-1/2 hours of the surgery were spent with adhesiolysis, but ultimately I was able to get them all done with no problems. After this was completed, I then turned my attention down into the pelvis and found the distal staple line in the sigmoid . There was small bowel adherent to the sigmoid colon, and so, with careful dissection, I was able to free the small bowel from the bowel and from the sigmoid colon, and I then could clearly identify the staple line. After this was cleaned off and mobilized, I turned my attention to the intra- abdominal portion of the colostomy. I cleaned this off circumferentially and was able to reduce some of the fat that went through the fascial defect, but there was no other parastomal hernia in terms of herniated intestines. After this was cleaned off, I undocked the robot and scrubbed back in and took down the colostomy from externally by dividing the attachment of the mucosa to the skin and then dissecting all the way down through the pericolonic tissues until I connected it with my intra-abdominal dissection plane. After this was completed, I cleaned off the distal portion of the colon and used a ASIM stapler to divide the colon at the level of the colostomy in a clean fashion. The colostomy was sent to pathology. I then reduced the colon back into the abdominal cavity, and there was some omentum that was adherent to this portion of the colon, and so this was easily taken down and . Once this colon was reduced back into the abdomen, I used a wound protector to create seal to allow insufflation, and then I brought the robot in, docked it, targeted it, and then was able to see that the proximal colon was able to get adjacent to the distal colon without any problems. I then used a 2-0 silk suture in two different places to approximate the two portions of colon, and then made colotomies adjacent to each other and then used a robotic Endo ASIM 45 mm stapler with a blue load and created a bhkl-ma-glke, functional end-to-end colocolonic anastomosis. The staple line looked great. Both portions of colon looked great, and they were approximated nicely without any tension, and they were well perfused. I then sewed close the conjoined colotomy with running V-Loc absorbable suture in two layers. The first layer was a simple running stitch full thickness through the serosa and mucosa to reapproximate the edges of the colotomy, and then I oversewed the entire colotomy suture line as well as the anterior staple line with another layer of V-Loc absorbable sutures in a Lembert-type fashion. After this was completed and happy with its appearance, I then closed the posterior fascial defect from the colostomy takedown wound with a running V-Loc absorbable suture. It came together quite nicely. After this was completed, I irrigated and dried the abdomen and removed all irrigation fluid from the right paracolic gutter and down in the pelvis. I then removed all the robotic instruments, undocked the robot, and then scrubbed back in and used a Temo to place a [id number]-ja-uzjmr 0 Vicryl suture in the 12 mm fascia in the epigastrium. I tied this down with good reapproximation of the fascial edges. I then sewed the anterior rectus fascia back together with running #1 Prolene suture. I then irrigated and dried the colostomy wound and then closed it loosely with mona, and then put 0.25-inch [place] drains between the mona down into the wound, and then sewed these to the skin together to hold them in place to allow the wound to continue to drain as it heals. I then closed the skin at each port site with 4-0 Monocryl subcuticular sutures. The skin was cleaned and dried and Steri-Strips were applied to the port sites, followed by sterile surgical dressings, and the colostomy takedown wound was covered with dry 4x4 gauze and an ABD pad, which were taped into place. He was then awakened and extubated in the operating room and transported to the recovery room in stable condition, having tolerated the procedure without any apparent problems. TUCKER
[2018-08-13] VITALS (10 sets, daily range): BP systolic 112–149; BP diastolic 74–99; Ht 177.8 cm; Wt 110.4 kg
[2018-08-13] MEDS: ACETAMINOPHEN(*)1000 MG/100 ML 100 ML IVPB SCH ×4 (00:13→18:15)
[2018-08-13] MEDS: INSULIN HUM LISPRO 100 UN/ML 3 ML VIAL SUBQ PRN ×4 (00:31→18:15)
[2018-08-13] MEDS: PIPERACILLIN/TAZO*3.375GM VIAL 3.375 GM in NS(*) 0.9% 100 ML MINI-BAG 100 ML IVPB SCH ×4 (00:31→18:48)
[2018-08-13] MEDS: NS(*) 0.9% 1000 ML BAG 1,000 ML IV PRN ×3 (02:01→21:33)
[2018-08-13] MEDS: HYDROmorphone HCL 2 MG/ML SDV IVP PRN ×2 (05:19→12:37)
[2018-08-13 05:49] LABS: PLATELET COUNT, AUTOMATED 206 K/uL (150-450)
--- NOTE | 2018-08-13 08:51 | General Surgery Progress Note ---
Subjective Progress Notes Subjective No complaints this morning. No flatus yet. Pain well controlled. Physical Exam Vital Signs Date Time Temp Pulse Resp B/P (MAP) Pulse Ox O2 Delivery O2 Flow Rate FiO2 08/13/18 07:06 98.5 95 12 131/92 (105) 92 Nasal Cannula 2.0 08/12/18 22:30 40.0 Intake and Output 08/13/18 07:01 Intake Total 4300 ml Output Total 800 ml Balance 3500 ml Intake IV Total 4300 ml Output Urine Total 800 ml General Appearance: Alert, Awake, No Acute Distress, Afebrile GI: Other (Soft, appropriate postop TTP, dressings C/D/I.) Extremities: Warm, Perfused Result Diagram: 08/13/1852308/13/18523 Assessment and Plan Problems: (1) History of colostomy reversal Status: Chronic Assessment & Plan: 08/13/18: POD#1 s/p robotic colostomy takedown. Doing well this morning. Afebrile, VSS. Will start sips/chips. Will work on improving blood sugars by scheduling insulin in addition to SSI. Ambulate today! IS, pulmonary hygiene, PPI, lovenox. (2) Diabetes Status: Chronic Assessment & Plan: SSI (3) Hypertension Status: Chronic Assessment & Plan: On home HTN meds (4) Obesity Status: Chronic Assessment & Plan: Aggressive pumonary hygiene, ambulation, etc. (5) Colon cancer metastasized to mesenteric lymph nodes Status: Resolved Condition Stable. Time Spent: < 30 min Exam Sepsis Risk: No Definite Risk Problem Qualifiers (1) Diabetes: Diabetes mellitus type: type 2 Diabetes mellitus alf insulin use: with alf use Diabetes mellitus complication status: without complication Qualified Codes: E11.9 - Type 2 diabetes mellitus without complications; Z79.4 - custodial (current) use of insulin (2) Hypertension: Hypertension type: essential hypertension Qualified Codes: I10 - Essential (primary) hypertension (3) Obesity: Obesity type: due to excess calories Obesity classification: adult class 1 (BMI 30 - 34.9) AUDIE MONAE MD Aug 13, 2018 08:50
[2018-08-13] MEDS: amLODIPine BESYL(*) 5 MG TAB PO SCH (09:14)
[2018-08-13] MEDS: METOPROLOL SUCC XL 50 MG TABCR 50 MG TAB.ER.24H PO SCH (09:14)
[2018-08-13] MEDS: PANTOPRAZOLE SOD 40 MG IV VIAL IVP SCH (09:15)
[2018-08-13] MEDS: INSULIN GLARGINE 100 U/ML 3 ML PEN SUBQ SCH ×2 (09:16→21:00)
[2018-08-13] MEDS: GABAPENTIN 300 MG CAP PO SCH ×2 (09:16→20:59)
[2018-08-13] MEDS: BENAZEPRIL HCL 20 MG TAB PO SCH (09:18)
[2018-08-14] MEDS: HYDROmorphone HCL 2 MG/ML SDV IVP PRN (00:19)
[2018-08-14] MEDS: ACETAMINOPHEN(*)1000 MG/100 ML 100 ML IVPB SCH ×3 (00:20→11:20)
[2018-08-14] MEDS: PIPERACILLIN/TAZO*3.375GM VIAL 3.375 GM in NS(*) 0.9% 100 ML MINI-BAG 100 ML IVPB SCH ×2 (00:46→06:15)
[2018-08-14 06:01] LABS: PLATELET COUNT, AUTOMATED 172 K/uL (150-450)
[2018-08-14] MEDS: NS(*) 0.9% 1000 ML BAG 1,000 ML IV PRN (07:06)
[2018-08-14 07:53] VITALS: BP 139/90
[2018-08-14] MEDS ORDERED: NS(*) 0.9% 1000 ML BAG 1,000 ML IV PRN (08:48)
--- NOTE | 2018-08-14 08:54 | General Surgery Progress Note ---
Subjective Progress Notes Subjective No complaints this morning. Not much pain. Passing flatus and he's had 2 BMs. No bloating or nausea. Physical Exam Vital Signs Date Time Temp Pulse Resp B/P (MAP) Pulse Ox O2 Delivery O2 Flow Rate FiO2 08/14/18 07:53 98.2 73 16 139/90 (106) 89 Nasal Cannula 3.0 08/12/18 22:30 40.0 Intake and Output 08/14/18 07:01 Intake Total 2090 ml Output Total 1475 ml Balance 615 ml Intake Oral 240 ml IV Total 1850 ml Output Urine Total 1475 ml General Appearance: Alert, Awake, No Acute Distress, Afebrile GI: Soft and Non-Tender (Dressings removed. Port incisions look good, no erythema or drainage. Stoma wound looks good with some serous drainage but no erythema.) Extremities: Warm, Perfused Result Diagram: 08/14/1852108/14/18521 Assessment and Plan Problems: (1) History of colostomy reversal Status: Chronic Assessment & Plan: 08/13/18: POD#1 s/p robotic colostomy takedown. Doing well this morning. Afebrile, VSS. Will start sips/chips. Will work on improving blood sugars by scheduling insulin in addition to SSI. Ambulate today! IS, pulmonary hygiene, PPI, lovenox. 08/14/18: POD#2. Doing well. Will start clear diet this morning. Remove Tinajero. Stop IV abx. Continue ambulation, blood sugar control (much better on scheduled insulin); will need to follow this now that he's starting to eat. Continue SSI. Ambulations, IS, pulmonary hygiene, PPI, lovenox. (2) Diabetes Status: Chronic Assessment & Plan: SSI, scheduled lantus (3) Hypertension Status: Chronic Assessment & Plan: On home HTN meds (4) Obesity Status: Chronic Assessment & Plan: Aggressive pumonary hygiene, ambulation, etc. (5) Colon cancer metastasized to mesenteric lymph nodes Status: Resolved Condition Stable. Time Spent: < 30 min Exam Sepsis Risk: No Definite Risk Problem Qualifiers (1) Diabetes: Diabetes mellitus type: type 2 Diabetes mellitus exterminator helper insulin use: without [facility] use Diabetes mellitus complication status: without c omplication Qualified Codes: E11.9 - Type 2 diabetes mellitus without complic ations (2) Hypertension: Hypertension type: essential hypertension Qualified Codes: I10 - Essential (primary) hypertension (3) Obesity: Obesity type: due to excess calories Obesity classification: adult class 1 (BMI 30 - 34.9) Body mass index: BMI 30.0-30.9 AUDIE MONAE MD Aug 14, 2018 08:54
[2018-08-14] MEDS: PANTOPRAZOLE SOD 40 MG IV VIAL IVP SCH (10:50)
[2018-08-14] MEDS: METOPROLOL SUCC XL 50 MG TABCR 50 MG TAB.ER.24H PO SCH (10:52)
[2018-08-14] MEDS: INSULIN GLARGINE 100 U/ML 3 ML PEN SUBQ SCH ×2 (10:52→21:46)
[2018-08-14] MEDS: GABAPENTIN 300 MG CAP PO SCH ×2 (10:52→21:46)
[2018-08-14] MEDS: BENAZEPRIL HCL 20 MG TAB PO SCH (10:53)
[2018-08-14] MEDS: amLODIPine BESYL(*) 5 MG TAB PO SCH (10:53)
[2018-08-14 14:20] VITALS: BP 140/99
[2018-08-14] MEDS: ENOXAPARIN 40 MG/0.4ML SYR SC SCH (14:24)
[2018-08-14] MEDS ORDERED: ACETAMINOPHEN 325 MG TAB PO PRN (17:25)
[2018-08-14] MEDS ORDERED: traMADol 50 MG TAB PO PRN (17:25)
[2018-08-14] MEDS ORDERED: IBUPROFEN 200 MG TAB PO PRN (17:25)
[2018-08-14 23:12] VITALS: BP 150/103
[2018-08-15 03:44] VITALS: BP 165/111
[2018-08-15] MEDS ORDERED: PANTOPRAZOLE SOD 40 MG TABEC PO SCH (09:00)
[2018-08-15 09:19] VITALS: BP 160/98
[2018-08-15] MEDS: GABAPENTIN 300 MG CAP PO SCH (09:20)
[2018-08-15] MEDS: ENOXAPARIN 40 MG/0.4ML SYR SC SCH (09:21)
[2018-08-15] MEDS: METOPROLOL SUCC XL 50 MG TABCR 50 MG TAB.ER.24H PO SCH (09:21)
[2018-08-15] MEDS: BENAZEPRIL HCL 20 MG TAB PO SCH (09:21)
[2018-08-15] MEDS: amLODIPine BESYL(*) 5 MG TAB PO SCH (09:21)
[2018-08-15] MEDS: INSULIN GLARGINE 100 U/ML 3 ML PEN SUBQ SCH (09:23)
--- NOTE | 2018-08-15 10:58 | Short(Outpt) Discharge Summary ---
Discharge Summary Reason for Hosp/Final Diag: (1) History of colostomy reversal Status: Chronic Hospital Course & Plan: 08/13/18: POD#1 s/p robotic colostomy takedown. Doing well this morning. Afebrile, VSS. Will start sips/chips. Will work on improving blood sugars by scheduling insulin in addition to SSI. Ambulate today! IS, pulmonary hygiene, PPI, lovenox. 08/14/18: POD#2. Doing well. Will start clear diet this morning. Remove Tinajero. Stop IV abx. Continue ambulation, blood sugar control (much better on scheduled insulin); will need to follow this now that he's starting to eat. Continue SSI. Ambulations, IS, pulmonary hygiene, PPI, lovenox. 08/15/18: POD#3. Doing well. Tolerating regular diet. Passing flatus and stool without problems. No fevers. Abdominal exam is benign. [place] drains removed from colostomy site. Will d/c to home this morning. (2) Diabetes Status: Chronic Hospital Course & Plan: SSI, scheduled lantus (3) Hypertension Status: Chronic Hospital Course & Plan: On home HTN meds (4) Obesity Status: Chronic Hospital Course & Plan: Aggressive pumonary hygiene, ambulation, etc. (5) Colon cancer metastasized to mesenteric lymph nodes Status: Resolved Departure Discharge to: Home, Self Care Discharge Instructions Home Meds Reported Medications Gabapentin (GABAPENTIN) 300 Mg Capsule, 300 MG PO BID, CAPSULE 08/06/18 Metoprolol Succinate (METOPROLOL SUCCINATE) 100 Mg Tab.er.24h, 1 TAB PO QDAY, TAB 08/06/18 Amlodipine Besylate/Benazepril (AMLODIPINE-BENAZEPRIL 10-40 MG) 1 Each Capsule, 1 EACH PO QDAY, CAPSULE 10/30/17 Pioglitazone Hcl (PIOGLITAZONE HCL) 45 Mg Tablet, 45 MG PO QDAY 10/26/17 Follow up Referrals: General Surgery - 08/20/18 @ Surgery, General with AUDIE MONAE MD You have a follow up appointment scheduled with Dr. Monae on Monday, August 20, 2018, at 11:00am. Diet: Diabetic Activity: No Heavy Lifting Special Instructions: Change the dressing over the colostomy site once every day, more often if needed if there's a lot of drainage. You may shower as desired but don't immerse the incisions or the colostomy wound until the wound is completely healed, probably in the next month. Remove the dressing before showering and place a new dressing after showering. Avoid any activity that involves straining or lifting more than 10 pounds for 6 weeks after surgery. Problem Qualifiers (1) Diabetes: Diabetes mellitus type: type 2 Diabetes mellitus intermediate insulin use: without terminal worker use Diabetes mellitus complication status: without complication Qualified Codes: E11.9 - Type 2 diabetes mellitus without complications (2) Hypertension: Hypertension type: essential hypertension Qualified Codes: I10 - Essential (primary) hypertension (3) Obesity: Obesity type: due to excess calories Obesity classification: adult class 1 (BMI 30 - 34.9) Body mass index: BMI 30.0-30.9 AUDIE MONAE MD Aug 15, 2018 10:58
[2018-08-15 12:32] VITALS: BP 144/93
== END 2018-08-15 12:45 | disposition home or self-care (01) | DRG 346 ==
LOC: OR 00:22 → MED 21:22
PROVIDERS: ADMIT Surgery; ATTEND Surgery
PROC: 0DNN8ZZ Release Sigmoid Colon, Via Natural or Artificial Opening Endoscopic (ICD-10-PCS; 2018-08-12)
PROC: 0DN88ZZ Release Small Intestine, Via Natural or Artificial Opening Endoscopic (ICD-10-PCS; 2018-08-12)
PROC: 5A09357 Assistance with Respiratory Ventilation, Less than 24 Consecutive Hours, Continuous Positive Airway Pressure (ICD-10-PCS; 2018-08-12)
PROC: 0DSM0ZZ Reposition Descending Colon, Open Approach (ICD-10-PCS; principal; 2018-08-12 12:49)
DX: Z43.3 Encounter for attention to colostomy (principal); E11.9 Type 2 diabetes mellitus without complications; I10 Essential (primary) hypertension; G47.33 Obstructive sleep apnea (adult) (pediatric); Z79.4 Long term (current) use of insulin; E66.9 Obesity, unspecified; Z68.34 Body mass index [BMI] 34.0-34.9, adult; Z85.038 Personal history of other malignant neoplasm of large intestine; Z85.89 Personal history of malignant neoplasm of other organs and systems; Z87.891 Personal history of nicotine dependence
CPT/HCPCS: 36415; 36416; 82310; 82374; 82435; 82565; 82947; 82948; 84132; 84295; 84520; 85025; 88304; 93005; 94640; 94667; C9113; J0131; J0295; J1170; J1650; J1815; J2001; J2250; J2405; J2543; J2704; J2795; J3010; J3490; J7030; J7040